=== PATIENT | female | born 1945 | race Caucasian/White ===

== ENCOUNTER 2021-02-28 09:24 | Observation (INO) ==
[2021-02-28] MEDS ORDERED: IOPAMIDOL 100 ML BOTTLE IV ONE (09:25)
[2021-02-28 09:42] LABS: POC Blood Urea Nitrogen 32 mg/dL (6-20); POC CO2 23 mmol/L (22-30); POC Calcium, Ionized 1.13 mmEq/L (1.16-1.32); POC Chloride 98 mEq/L (96-108); POC Glucose, Random 123 mg/dL (70-105); POC Hematocrit 28 % (36-48); POC Potassium 3.7 mEql/L (3.3-5.1); POC Sodium 134 mEq/L (133-145)
[2021-02-28 10:25] LABS: Basophils # (Auto) 0.04 K/mcL (0.00-0.20); Basophils % (Auto) 0.2 % (0.0-2.0); Eosinophils # (Auto) 0.08 K/mcL (0.00-0.70); Eosinophils % (Auto) 0.4 % (0.0-7.0); Hematocrit 27.1 % (36.0-48.0); Hemoglobin 9.3 g/dL (12.0-15.0); Lymphocytes # (Auto) 1.59 K/mcL (1.50-4.80); Lymphocytes % (Auto) 8.7 % (15.0-49.0); Mean Cell Volume 86.9 fL (80.0-100.0); Mean Corpuscular HGB Conc 34.3 g/dL (31.0-36.0); Mean Platelet Volume 11.5 fL (7.4-10.4); Monocytes # (Auto) 1.43 K/mcL (0.10-0.90); Monocytes % (Auto) 7.8 % (1.0-12.0); Neutrophils % (Auto) 82.9 % (38.0-78.0); Platelet Count 317 K/mcL (140-440); RBC 3.12 M/mcL (4.00-5.20); Red Cell Distribution Width 15.2 % (11.5-14.5); WBC 18.4 K/mcL (4.5-11.0)
[2021-02-28 11:10] LABS: ALT/SGPT 22 U/L (<40); AST/SGOT 36 U/L (<32); Albumin 3.6 gm/dL (3.2-5.2); Albumin/Globulin Ratio 1.4 (1.0-2.3); Alkaline Phosphatase 68 U/L (39-117); Bilirubin,Total 0.7 mg/dL (0.1-1.0); Blood Urea Nitrogen 34 mg/dL (8-23); Carbon Dioxide 23 mmol/L (22-30); Chloride 98 mmol/L (96-108); Globulin 2.5 gm/dL (2.2-3.7); Glomerular Filtration Rate 49; Glucose 115 mg/dL (70-105)
[2021-02-28 11:46] LABS: INR 1.2 (0.9-1.1); Prothrombin Time 15.3 sec (11.9-14.5)
--- NOTE | 2021-02-28 11:46 | Cat Scan Report ---
INDICATION: gi bleed COMPARISON: Previous CT scans dated 11/08/2017 and 04/11/2017 TECHNIQUE: Pre and postcontrast axial images were obtained through the abdomen and pelvis. Sagittally and coronally reformatted images. 80 mL contrast material injected intravenously. Oral contrast material was not administered FINDINGS: Lung bases:There is a focal soft tissue density at the inferior pulmonary ligament on the left. This is unchanged since 11/08/2017. Lung bases are otherwise negative. There is no pleural fluid. No pericardial fluid. There is a small hiatal hernia Liver:No focal intrahepatic lesion. Liver contour is smooth. No evidence for cirrhosis Gallbladder, bilary:Previous cholecystectomy. No dilated bile ducts Spleen:No splenomegaly. Normal enhancement of splenic and portal veins Pancreas:No pancreatic mass. No peripancreatic abnormality Adrenal glands:Bilateral adrenal enlargement consistent with adenomas. Findings are unchanged since 11/08/2017 Kidneys, ureters, bladder:No solid renal mass. No hydronephrosis. No obstructing or nonobstructing calculi. Benign left renal cyst is unchanged. Right intrarenal collecting system is slightly prominent. This appears stable. No hydroureter. No ureteral stone No bladder calculi. No detectable mass Gastrointestinal: Ascending colon and transverse colon are abnormal. There is loss of normal haustration. Appearance is consistent with colitis. The cecum is abnormal with marked wall thickening. No definite luminal narrowing. This may also be inflammatory and secondary to colitis. Cecal mass is not excluded. There is mild pericecal adenopathy. Follow-up CT scan or colonoscopy recommended. There is mural vascularity within the cecum. No definite contrast extravasation or pooling. Small bowel is negative. No mechanical small bowel obstruction. Stomach and duodenum are within normal limits Appendix: The appendix is negative Vascular:Severe calcified atherosclerotic plaque in the abdominal aorta. There is no abdominal aortic aneurysm. Celiac trunk and superior mesenteric artery are normal. There is stenosis at the origin of the right renal artery. Lymphatic:Negative. No retroperitoneal or mesenteric adenopathy Mesentery, peritoneum:No free intraperitoneal fluid. No intra-abdominal abscess. No pneumoperitoneum Reproductive:Uterus is present and slightly anteflexed. No adnexal mass Musculoskeletal:No lumbar compression fracture. Sacrum and pelvis are negative. There is very severe degenerative facet arthropathy at L5-S1 with grade 1 spondylolisthesis. Hips are negative. No inguinal or anterior abdominal wall hernia IMPRESSION: 1. Abnormal ascending colon and transverse colon consistent with colitis 2. Abnormal cecum with irregular mural thickening and mild pericolonic inflammatory change. There is surrounding adenopathy. Findings may be due to colitis but cecal neoplasm is not excluded. Follow-up CT scan or colonoscopy is recommended. 3. Small hiatal hernia 4. Bilateral adrenal adenomas are benign and stable 5. Severe facet arthropathy at L5-S1 The exam was performed using radiation dose optimization techniques including, but not limited to, automated exposure control, adjustment of the mA and/or kV according to patient size and use of iterative reconstruction technique. Interpreted and Authenticated by: Christofer Ravi 02/28/21
[2021-02-28] MEDS ORDERED: PEG 3350/NA SULF,BICARB,CL/KCL 4,000 ML ORAL.SOL PO ONE (12:21)
--- NOTE | 2021-02-28 12:30 | Emergency Department Note ---
GI Bleed HPI General Chief complaint: Rectal Bleed Stated complaint: blood in stool x 2 days Time Seen by Provider: 02/28/21 10:35 Source: patient Mode of arrival: ambulatory Limitations: no limitations History of Present Illness HPI Narrative: Narrative: Presents to room T5 for evaluation of rectal bleeding. The patient reports over the last 48 hours she has had several episodes of dark red blood mixed with stool. The patient reports her last colonoscopy was in 2015. She was attempting to prep for colonoscopy in August of last year however was unable to tolerate the prep. She has seen Dr. Vega in the past for this. The patient denies any lightheadedness or dizziness. No fevers or chills. No nausea or vomiting. No significant abdominal pain. No significant weight loss. She denies any additional associated factors. No exacerbating or alleviating factors. Related Data Home Medications Medication Instructions Recorded Confirmed aspirin 81 mg tablet,delayed 81 mg PO QDAY tab 07/22/15 02/28/21 release carvedilol 12.5 mg PO BID 02/28/21 02/28/21 Previous Rx's Medication Instructions Recorded pen needle, diabetic 32 gauge x #100 each 01/07/18/" blood sugar diagnostic #100 each 05/02/20 pen needle, diabetic 32 gauge x #100 each 05/02/2004/09" pantoprazole 20 mg tablet,delayed 20 mg PO BID 90 Days #180 tab 09/18/20 release atorvastatin 80 mg tablet 80 mg PO QDAY 90 Days #90 tab 10/24/20 clopidogrel 75 mg tablet 75 mg PO QDAY 90 Days #90 tab 10/24/20 fenofibrate 160 mg tablet 160 mg PO QDAY 90 Days #90 tab 10/24/20 fluoxetine 20 mg capsule 20 mg PO QDAY 90 Days #90 cap 10/24/20 furosemide 20 mg tablet 20 mg PO QAM 90 Days #90 tab 10/24/20 nifedipine 60 mg tablet,extended 60 mg PO BID 90 Days #180 tab 10/24/20 release Lantus Solostar U-100 Insulin 100 5 unit SUB-Q QPM #15 ml NS 12/20/20 unit/mL (3 mL) subcutaneous pen alprazolam 0.25 mg tablet 0.25 mg PO QHS PRN #30 tab 12/21/20 isosorbide mononitrate 30 mg 30 mg PO BID 90 Days #180 tab 03/01/21 tablet,extended release 24 hr losartan 50 mg tablet 25 mg PO BID 90 Days #90 tab 01/23/21 Allergies Allergy/AdvReac Type Severity Reaction Status Date / Time lisinopril AdvReac Intermediate Cough Verified 02/28/21 09:27 Review of Systems ROS ROS Narrative: Narrative: All systems ED: reviewed and negative except as stated. [facility] Narrative Patient History Narrative: Narrative: Medical/Surgical/Family History All Active Problems (Updated 02/28/21 @ 12:36 by Michael Reece MD) Acute GI bleeding (Acute) Irritable bowel syndrome with diarrhea (Chronic) Cystocele (Chronic) Biceps rupture, proximal (Chronic) Aortic stenosis (Chronic) S/P coronary artery stent placement (Chronic) Urinary tract infection (Acute) Gastroenteritis (Acute) Transient ischemic attack (TIA) (Chronic) S/P wrist surgery (Chronic) Fracture of wrist (Acute) Finger fracture, right (Acute) Gastrointestinal problem (Chronic) History of esophagogastroduodenoscopy (EGD) (Chronic 11/06/16) Diabetic peripheral neuropathy (Chronic) History of tonsillectomy (Chronic) History of colonoscopy (Chronic 11/06/16) History of cholecystectomy (Chronic) History of adenoidectomy (Chronic) Tricuspid valve disease (Chronic) Tobacco abuse (Chronic) Sciatica (Chronic) Restless legs (Chronic) Pseudophakia (Chronic) Postmenopausal status (age-related) (natural) (Chronic) Osteopenia (Chronic) Osteoarthrosis (Chronic) Lumbago (Chronic) care home current use of insulin (Chronic) Disorder of kidney and ureter (Chronic) Hyponatremia (Chronic) Hypertension, essential (Chronic) Hyperlipidemia (Chronic) Esophageal reflux (Chronic) Diverticulitis of colon (Chronic 11/14/12) Diabetes mellitus, type II (Chronic) Depression (Chronic) Colonic polyp (Chronic) CAD (coronary artery disease) (Chronic) Blepharitis (Chronic) Anxiety disorder (Chronic) Medical History (Updated 02/28/21 @ 12:36 by Michael Reece MD) Anxiety disorder Aortic stenosis Biceps rupture, proximal RIGHT Blepharitis (07/21/2014 Dr Chambers) CAD (coronary artery disease) Colonic polyp Cystocele Depression Diabetes mellitus, type II Disorder of kidney and ureter Diverticulitis of colon (11/14/12) Esophageal reflux Gastrointestinal problem chronic vomiting and diarrhea dating back to childhood Hyperlipidemia Hypertension, essential Hyponatremia Irritable bowel syndrome with diarrhea [employer] current use of insulin Lumbago Osteoarthrosis Osteopenia Postmenopausal status (age-related) (natural) Pseudophakia (07/21/2014 Dr Chambers) Restless legs Sciatica Sinusitis Tobacco abuse Transient ischemic attack (TIA) Tricuspid valve disease Murmur Surgical History History of adenoidectomy as a child History of cholecystectomy November 2002 Post operative pancreatitis History of colonoscopy (11/06/16) 11/14/13 Dr Saab History of esophagogastroduodenoscopy (EGD) (11/06/16) History of tonsillectomy as a child S/P coronary artery stent placement LAD May 2018 S/P wrist surgery 06/10/2017 RIGHT wrist ORIF, Dr. Pereira Family History Mother , (or cerebral aneurysm) Aortic aneurysm, Onset Age: 44 Bipolar affective disorder Migraine without aura Hypertension Rheumatic fever Secondary heart murmur Son Asthma Cardiac conduction disorder Family history of diabetes mellitus Hypertension Mitral valve stenosis Obesity Malignant Neoplasm of Thyroid Gland not specified, malignant Father Cardiac arrest, Onset Age: 51 Maternal Grandfather Nonruptured cerebral aneurysm, Onset Age: 37 ruptured, Paternal Grandfather , committed suicide Depression Sister Family history of diabetes mellitus Hypertension Obesity Sister with status post gastric bypass Sons Migraine Social History Smoking Status: Current some day smoker Alcohol Intake Frequency: does not drink Substance Use: does not use Exam Narrative Narrative: Narrative: General Limitations: no limitations General appearance: Present alert and in no apparent distress Head Head: Present atraumatic, normocephalic and normal inspection Eye Eye: Present normal appearance and EOMI; Absent conjunctival injection ENT ENT: Present normal exam and mucous membranes moist Neck Neck: Present normal inspection and trachea midline Respiratory Respiratory: Present normal lung sounds bilaterally; Absent respiratory distress Cardiovascular Cardiovascular: Present regular rate, normal rhythm and normal heart sounds Adbominal Abdominal: Present soft; Absent distention, tenderness, guarding and rebound Extremities Extremities: Present normal inspection; Absent tenderness Back Back: Present normal inspection; Absent tenderness Neurological Neurological: Present alert, oriented X3 and CN II-XII intact; Absent motor sensory deficit Psychiatric Psychiatric: Present normal affect and normal mood Skin Skin: Present warm (WNL) and dry; Absent rash Course Vital Signs Vital signs: Vital Signs Pulse Rate 88 02/28/21 09:24 Respiratory Rate 18 02/28/21 09:24 Blood Pressure 131/55 02/28/21 09:24 Pulse Oximetry (%) 97 02/28/21 09:24 Pulse Rate 73 02/28/21 12:01 Respiratory Rate 18 02/28/21 09:24 Blood Pressure 101/45 02/28/21 12:01 Pulse Oximetry (%) 94 02/28/21 12:01 [facility] MDM Narrative Medical decision making narrative: Narrative: Patient presents for evaluation of rectal bleeding. The patient's abdominal exam is otherwise benign. It is noted her hemoglobin is 9.3 which is diminished from previous values. Patient also have a leukocytosis of 18.4. Patient's BUN is elevated at 34 compared to baseline. The patient has gross blood when she passes her stool. CT scan does show thickened colon with irregularity and associated lymphadenopathy in the ascending colon and cecum. The patient and her prefer to stay at our facility. Dr. Gould is on-call and I discussed the case with him. He is requested a prep for colonoscopy. He is requested no antibiotics at this time. Have also discussed the case with the admitting hospitalist. Medical Records Medical records reviewed: Yes I reviewed the patient's medical records. Lab Data Lab results reviewed: Yes I reviewed the patient's lab results. Result diagrams: 02/28/21 09:31 02/28/21 09:31 Labs: Lab Results 02/28/21 02/28/21 02/28/21 Range/Units 09:31 09:31 09:31 WBC 18.4 H (4.5-11.0) K/mcL RBC 3.12 L (4.00-5.20) M/mcL Hgb 9.3 L (12.0-15.0) g/dL Hct 27.1 L (36.0-48.0) % POC Hct 28 L (36-48) % MCV 86.9 (80.0-100.0) fL MCH 29.8 (26.0-34.0) pg MCHC 34.3 (31.0-36.0) g/dL RDW 15.2 H (11.5-14.5) % Plt Count 317 (140-440) K/mcL MPV 11.5 H (7.4-10.4) fL Neut % (Auto) 82.9 H (38.0-78.0) % Lymph % (Auto) 8.7 L (15.0-49.0) % [place] % (Auto) 7.8 (1.0-12.0) % Eos % (Auto) 0.4 (0.0-7.0) % Baso % (Auto) 0.2 (0.0-2.0) % Lymph # (Auto) 1.59 (1.50-4.80) K/mcL [place] # (Auto) 1.43 H (0.10-0.90) K/mcL Eos # (Auto) 0.08 (0.00-0.70) K/mcL Baso # (Auto) 0.04 (0.00-0.20) K/mcL Absolute Neutrophils 15.23 H (1.80-8.00) K/mcL PT 15.3 H (11.9-14.5) sec INR 1.2 H (0.9-1.1) APTT 57.0 H (20.0-37.0) sec POC Sodium 134 (133-145) mEq/L Sodium 132 L (133-145) mmol/L POC Potassium 3.7 (3.3-5.1) mEql/L Potassium 3.7 (3.3-5.1) mmol/L POC Chloride 98 (96-108) mEq/L Chloride 98 (96-108) mmol/L Carbon Dioxide 23 (22-30) mmol/L POC Total CO2 23 (22-30) mmol/L Anion Gap 11.0 (8.0-16.0) POC BUN 32 H (6-20) mg/dL BUN 34 H (8-23) mg/dL Creatinine 1.1 (0.6-1.1) mg/dL POC Creatinine 1.0 (0.6-1.2) mg/dL GFR Calculation 49 Glucose 115 H (70-105) mg/dL POC Glucose 123 H (70-105) mg/dL Calcium 9.0 (8.6-10.4) mg/dL POC WB Ioniz Calcium 1.13 L (1.16-1.32) mmEq/L Total Bilirubin 0.7 (0.1-1.0) mg/dL AST 36 H (<32) U/L ALT 22 (<40) U/L Alkaline Phosphatase 68 (39-117) U/L Total Protein 6.1 (5.9-8.4) gm/dL Albumin 3.6 (3.2-5.2) gm/dL Globulin 2.5 (2.2-3.7) gm/dL Albumin/Globulin Ratio 1.4 (1.0-2.3) Radiology Data Radiology results reviewed: Yes I reviewed the patient's radiology results. Discharge Plan Patient/Caregiver Discharge Instructions Pt seen by HIGH SCHOOL GUIDANCE COUNSELOR/PA only: No Clinical Impression: Acute GI bleeding Patient Disposition: Xfer As Inpt ([facility]) Condition: Fair Follow up with: Obie Self PA-C [Primary Care Provider] - Prescriptions: No Action (DME) pen needle, diabetic [Comfort EZ Pen Secretary] 32 gauge x 1/4" needle See Dose Instructions .ROUTE .MEDSUPPLY Qty: 100 RF: 1 (DME) blood sugar diagnostic Strip See Dose Instructions .ROUTE .MEDSUPPLY Qty: 100 RF: 1 (DME) Comfort EZ Pen Secretary 32 gauge x 5/16" needle See Rx Instructions .ROUTE .MEDSUPPLY Qty: 100 RF: 0 pantoprazole 20 mg tablet,delayed release (DR/EC) 20 mg PO BID 90 Days Qty: 180 RF: 1 fenofibrate 160 mg tablet 160 mg tablet 160 mg PO QDAY 90 Days Qty: 90 RF: 1 fluoxetine 20 mg capsule 20 mg PO QDAY 90 Days Qty: 90 RF: 1 atorvastatin 80 mg tablet 80 mg PO QDAY 90 Days Qty: 90 RF: 1 nifedipine 60 mg tablet extended release 60 mg PO BID 90 Days Qty: 180 RF: 1 furosemide 20 mg tablet 20 mg PO QAM 90 Days Qty: 90 RF: 1 clopidogrel 75 mg tablet 75 mg PO QDAY 90 Days Qty: 90 RF: 1 alprazolam 0.25 mg tablet 0.25 mg PO QHS PRN (Reason: anxiety) Qty: 30 RF: 0 isosorbide mononitrate 30 mg tablet extended release 24 hr 30 mg PO BID 90 Days Qty: 180 RF: 1 losartan 50 mg tablet 25 mg PO BID 90 Days Qty: 90 RF: 1 Hold Instructions: due to hypotension aspirin 81 mg tablet,delayed release (/EC) 81 mg PO QDAY RF: 0 Lantus Solostar U-100 Insulin 100 unit/mL (3 mL) insulin pen 5 unit SUB-Q QPM Qty: 15 RF: 2 carvedilol 25 mg tablet 12.5 mg PO BID RF: 0
--- NOTE | 2021-02-28 12:51 | Internal Med History&Physical ---
HPI History of Present Illness Patient information: Note initiated : 02/28/21 at 12:42 pm Service Date, if different from initiated Date: [] Patient: Harika Palomino a 75 y/o F admitted on for blood in stool x 2 days. Chief Complaint: [] History of present illness: Ms. Palomino is a 75 year old F Presents the ED with bleeding per rectum. Patient states that she had Hemoccult positive stool testing the past and she will underwent a colonoscopy last fall but it made her really sick and has not done anything since then. Several days ago she started having bright red blood per rectum as well as some dark blood and then she has developed some clots today. She says she had about 10 episodes since evening of the fourth. Hemoglobin is 9.3. He also reports some abdominal cramping and achiness and was found have a leukocytosis of 18. CT imaging showed colitis of the ascending and transverse colon colon. Dr. Gould was contacted who will perform colonoscopy. Systolic blood pressure in the low 100s. She is on aspirin Plavix for history of CAD and stroke. She does have have chronic diarrhea. She had some nausea but no vomiting. Review of Systems: Pertinent positives as above plus headache.. Denies /fever/chills/vomiting/chest pain/cough/dyspnea. Remaining 10 point review of system reviewed negative PFSH PFSH All Active Problems (Updated 02/28/21 @ 12:36 by Michael Reece MD) Acute GI bleeding (Acute) Irritable bowel syndrome with diarrhea (Chronic) Cystocele (Chronic) Biceps rupture, proximal (Chronic) Aortic stenosis (Chronic) S/P coronary artery stent placement (Chronic) Urinary tract infection (Acute) Gastroenteritis (Acute) Transient ischemic attack (TIA) (Chronic) S/P wrist surgery (Chronic) Fracture of wrist (Acute) Finger fracture, right (Acute) Gastrointestinal problem (Chronic) History of esophagogastroduodenoscopy (EGD) (Chronic 11/06/16) Diabetic peripheral neuropathy (Chronic) History of tonsillectomy (Chronic) History of colonoscopy (Chronic 11/06/16) History of cholecystectomy (Chronic) History of adenoidectomy (Chronic) Tricuspid valve disease (Chronic) Tobacco abuse (Chronic) Sciatica (Chronic) Restless legs (Chronic) Pseudophakia (Chronic) Postmenopausal status (age-related) (natural) (Chronic) Osteopenia (Chronic) Osteoarthrosis (Chronic) Lumbago (Chronic) 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 current use of insulin (Chronic) Disorder of kidney and ureter (Chronic) Hyponatremia (Chronic) Hypertension, essential (Chronic) Hyperlipidemia (Chronic) Esophageal reflux (Chronic) Diverticulitis of colon (Chronic 11/14/12) Diabetes mellitus, type II (Chronic) Depression (Chronic) Colonic polyp (Chronic) CAD (coronary artery disease) (Chronic) Blepharitis (Chronic) Anxiety disorder (Chronic) Medical History (Updated 02/28/21 @ 12:36 by Michael Reece MD) Anxiety disorder Aortic stenosis Biceps rupture, proximal RIGHT Blepharitis (07/21/2014 Dr Chambers) CAD (coronary artery disease) Colonic polyp Cystocele Depression Diabetes mellitus, type II Disorder of kidney and ureter Diverticulitis of colon (11/14/12) Esophageal reflux Gastrointestinal problem chronic vomiting and diarrhea dating back to childhood Hyperlipidemia Hypertension, essential Hyponatremia Irritable bowel syndrome with diarrhea 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 Pereira Family History Mother , (or cerebral aneurysm) Aortic aneurysm, Onset Age: 44 Bipolar affective disorder Migraine without aura Hypertension Rheumatic fever Secondary heart murmur Son Asthma Cardiac conduction disorder Family history of diabetes mellitus Hypertension Mitral valve stenosis Obesity Malignant Neoplasm of Thyroid Gland not specified, malignant Father Cardiac arrest, Onset Age: 51 Maternal Grandfather Nonruptured cerebral aneurysm, Onset Age: 37 ruptured, Paternal Grandfather , committed suicide Depression Sister Family history of diabetes mellitus Hypertension Obesity Sister with status post gastric bypass Sons Migraine Social History household members: spouse housing: house lives independently: Yes marital status: alcohol intake frequency: does not drink substance use type: does not use MEDS/ALLERGIES Home Medications and Allergies Home Medications Medication Instructions Recorded Confirmed Type aspirin 81 mg tablet,delayed 81 mg PO QDAY tab 07/22/15 02/28/21 History release pen needle, diabetic 32 gauge x #100 each 01/07/18 02/28/21 Rx 1/4" blood sugar diagnostic #100 each 05/02/20 02/28/21 Rx pen needle, diabetic 32 gauge x #100 each 05/02/20 02/28/21 Rx 5/16" pantoprazole 20 mg tablet,delayed 20 mg PO BID 90 Days #180 tab 09/18/20 02/28/21 Rx release atorvastatin 80 mg tablet 80 mg PO QDAY 90 Days #90 tab 10/24/20 02/28/21 Rx clopidogrel 75 mg tablet 75 mg PO QDAY 90 Days #90 tab 10/24/20 02/28/21 Rx fenofibrate 160 mg tablet 160 mg PO QDAY 90 Days #90 tab 10/24/20 02/28/21 Rx fluoxetine 20 mg capsule 20 mg PO QDAY 90 Days #90 cap 10/24/20 02/28/21 Rx furosemide 20 mg tablet 20 mg PO QAM 90 Days #90 tab 10/24/20 02/28/21 Rx nifedipine 60 mg tablet,extended 60 mg PO BID 90 Days #180 tab 10/24/20 02/28/21 Rx release Lantus Solostar U-100 Insulin 100 5 unit SUB-Q QPM #15 ml NS 12/20/20 02/28/21 Rx unit/mL (3 mL) subcutaneous pen alprazolam 0.25 mg tablet 0.25 mg PO QHS PRN #30 tab 12/21/20 02/28/21 Rx isosorbide mononitrate 30 mg 30 mg PO BID 90 Days #180 tab 01/23/21 02/28/21 Rx tablet,extended release 24 hr losartan 50 mg tablet 25 mg PO BID 90 Days #90 tab 01/23/21 02/28/21 Rx carvedilol 12.5 mg PO BID 02/28/21 02/28/21 History Allergies Allergy/AdvReac Type Severity Reaction Status Date / Time lisinopril AdvReac Intermediate Cough Verified 02/28/21 09:27 EXAM Constitutional Vitals: Pulse Resp BP Pulse Ox 77 18 109/46 93 02/28/21 12:31 02/28/21 09:24 02/28/21 12:31 02/28/21 12:31 Exam: General: Alert, Awake, No acute Distress Eyes/N/T: EOMI, PERRL, Head/Neck: neck supple, normocephalic atraumatic CV: RRR, 3/6 SM, normal s1/s2 Pulm: Clear b/l, no wheezing/rhonchi/rales Abd: soft, mild TTP generalized, +BS x4 Ext: no clubbing/cyanosis, 1-2+ b/l LE edema Neuro: Alert, no focal deficits, moves all extremities, CN 2-12 grossly intact, symmetrical strength b/l upper/lower, sensations intact b/l upper/lower Skin: warm/dry DATA Data Completed and Pending Labs: Labs from last 24 hours 02/28/21 02/28/21 02/28/21 09:31 09:31 09:31 WBC 18.4 H RBC 3.12 L Hgb 9.3 L Hct 27.1 L POC Hct 28 L MCV 86.9 MCH 29.8 MCHC 34.3 RDW 15.2 H Plt Count 317 MPV 11.5 H Neut % (Auto) 82.9 H Lymph % (Auto) 8.7 L [place] % (Auto) 7.8 Eos % (Auto) 0.4 Baso % (Auto) 0.2 Lymph # (Auto) 1.59 [place] # (Auto) 1.43 H Eos # (Auto) 0.08 Baso # (Auto) 0.04 Absolute Neutrophils 15.23 H PT 15.3 H INR 1.2 H APTT 57.0 H POC Sodium 134 Sodium 132 L POC Potassium 3.7 Potassium 3.7 POC Chloride 98 Chloride 98 Carbon Dioxide 23 POC Total CO2 23 Anion Gap 11.0 POC BUN 32 H BUN 34 H Creatinine 1.1 POC Creatinine 1.0 GFR Calculation 49 Glucose 115 H POC Glucose 123 H Calcium 9.0 POC WB Ioniz Calcium 1.13 L Total Bilirubin 0.7 AST 36 H ALT 22 Alkaline Phosphatase 68 Total Protein 6.1 Albumin 3.6 Globulin 2.5 Albumin/Globulin Ratio 1.4 A/P Narrative A/P Narrative: A: *Colitis: *GIB, appears lower: *Acute blood loss anemia, on chronic: *DM: *CAD w/stent: *h/o CVA: on asa/plavix *peripheral edema: on lasix *HTN: *Depression/anxiety: *GERD: *Tobacco abuse: * P: -Cipro/Flagyl, Stool studies -Dr. Gould for endoscopy and further Missael -monitor H&H -Hold aspirin/Plavix until eval by GI -cont statin -cont BB, hold CCB/ACEI for low-normal BP -compression stockings - -basal and SSI -Smoking cessation counseling -ppx: SCD/home ppi DNR Time Spent With Patient Time: Total time spent is greater than 50% in coordination of care (as documented) at patient's floor/unit and/or counseling patient:
[2021-02-28] MEDS ORDERED: 0.9 % SODIUM CHLORIDE 1,000 ML IV SCH (13:57)
[2021-02-28] MEDS ORDERED: SENNOSIDES 1 TABLET PO PRN (13:57)
[2021-02-28] MEDS ORDERED: ONDANSETRON 4 MG/2 ML VIAL IV PRN (13:57)
[2021-02-28] MEDS ORDERED: POTASSIUM CHLORIDE 20 MEQ TABLET PO PRN ×2 (13:57)
[2021-02-28] MEDS ORDERED: ALPRAZolam 0.25 MG TABLET PO PRN (13:57)
[2021-02-28] MEDS ORDERED: DEXTROSE 50% 50 ML VIAL IV PRN (13:57)
[2021-02-28] MEDS ORDERED: MAGNESIUM SULFATE 2 GM/50 ML BAG IV PRN (13:57)
[2021-02-28] MEDS ORDERED: POTASSIUM CHLORIDE 40 MEQ in DEXTROSE 5% IN WATER 500 ML IV PRN (13:57)
[2021-02-28] MEDS ORDERED: ACETAMINOPHEN 325 MG TABLET PO PRN (13:57)
[2021-02-28] MEDS ORDERED: IPRATROPIUM/ALBUTEROL 3 ML AMPUL.NEB NEB PRN (13:57)
[2021-02-28] MEDS ORDERED: DEXTROSE 31 GM ORAL.SUSP PO PRN (13:57)
[2021-02-28] MEDS ORDERED: KETAMINE 50 MG/ML ML IV PRN (14:29)
[2021-02-28] MEDS ORDERED: PROPOFOL 200 MG/20 ML VIAL IV SCH (14:30)
[2021-02-28] MEDS ORDERED: MIDAZOLAM 2 MG/2 ML VIAL IV SCH (14:30)
[2021-02-28] MEDS: CIPROFLOXACIN 400 MG/200 ML BAG IV SCH ×2 (14:34→17:43)
[2021-02-28] MEDS: metroNIDAZOLE 500 MG/100 ML BAG IV SCH ×2 (14:34→22:07)
[2021-02-28] MEDS: 0.9 % SODIUM CHLORIDE 10 ML SYRINGE IV SCH ×2 (14:36→22:07)
[2021-02-28] MEDS ORDERED: PROPOFOL 200 MG/20 ML VIAL IV ONE (16:46)
[2021-02-28] MEDS ORDERED: MIDAZOLAM 2 MG/2 ML VIAL ONE (16:46)
[2021-02-28] MEDS: INSULIN LISPRO 1 UNIT/0.01 ML UNIT SQ SCH ×2 (17:45→21:59)
--- NOTE | 2021-02-28 19:17 | Discharge Summary ---
Discharge Provider Provider Patient information: Note initiated : 02/28/21 at 7:15 pm Service Date, if different from initiated Date: [] Patient: Harika Palomino 75 y/o F admitted on 02/28/21 for blood in stool x 2 days/GI Bleed. Chief Complaint: [] Date of admission: 02/28/21 13:45 Primary care physician: Obie Self PA-C Consults: 02/28/21 Consult to Physician [CONS] Stat Comment: Consulting Provider: Garett Gonzalez Reason For Exam: Physician to Consult 02/28/21 13:57 Consult to Physician [CONS] Routine Comment: Consulting Provider: Rell Ordonez Reason For Exam: Physician to Consult Discharge Meds Discharge Medications Home Medications aspirin 81 mg tablet,delayed release 81 mg PO HS tab 07/22/15 [History Confirmed 02/28/21 Last Taken 02/26/21 21:00] pen needle, diabetic 32 gauge x 1/4" #100 each 01/07/18 [Rx Confirmed 02/28/21 Last Taken Unknown] blood sugar diagnostic #100 each 05/02/20 [Rx Confirmed 02/28/21 Last Taken Unknown] pen needle, diabetic 32 gauge x 5/16" #100 each 05/02/20 [Rx Confirmed 02/28/21 Last Taken Unknown] pantoprazole 20 mg tablet,delayed release 20 mg PO BID 90 Days #180 tab 09/18/20 [Rx Confirmed 02/28/21 Last Taken 02/28/21 08:00] clopidogrel 75 mg tablet 75 mg PO QDAY 90 Days #90 tab 10/24/20 [Rx Confirmed 02/28/21 Last Taken 02/27/21 08:00] furosemide 20 mg tablet 20 mg PO QAM 90 Days #90 tab 10/24/20 [Rx Confirmed 02/28/21 Last Taken 02/28/21 08:00] nifedipine 60 mg tablet,extended release 60 mg PO BID 90 Days #180 tab 10/24/20 [Rx Confirmed 02/28/21 Last Taken 02/28/21 08:00] Lantus Solostar U-100 Insulin 100 unit/mL (3 mL) subcutaneous pen 5 unit SUB-Q QPM #15 ml NS 12/20/20 [Rx Confirmed 02/28/21 Last Taken 02/27/21 21:00] alprazolam 0.25 mg tablet 0.25 mg PO QHS PRN #30 tab 12/21/20 [Rx Confirmed 02/28/21 Last Taken 02/26/21 21:00] isosorbide mononitrate 30 mg tablet,extended release 24 hr 30 mg PO BID 90 Days #180 tab 01/23/21 [Rx Confirmed 02/28/21 Last Taken 02/28/21 08:00] losartan 50 mg tablet 25 mg PO BID 90 Days #90 tab 01/23/21 [Rx Confirmed Last Taken 02/23/21 21:00] atorvastatin 80 mg PO HS 02/28/21 [History Confirmed 02/28/21 Last Taken 02/27/21 21:00] carvedilol 12.5 mg PO BID 02/28/21 [History Confirmed 02/28/21 Last Taken 05/15 08:00] cholecalciferol (vitamin D3) [Vitamin D3] 10 mcg PO QDAY 02/28/21 [History Confirmed 02/28/21 Last Taken 02/28/21 08:00] fenofibrate 160 mg PO HS 02/28/21 [History Confirmed 02/28/21 Last Taken 02/27/21 21:00] fluoxetine 20 mg PO HS 02/28/21 [History Confirmed 02/28/21 Last Taken 02/27/21 21:00] loperamide 2 mg PO PRN PRN 02/28/21 [History Confirmed 02/28/21 Last Taken Unknown] multivitamin 1 tab PO QAM 02/28/21 [History Confirmed 02/28/21 Last Taken 02/28/21 08:00] naproxen sodium [Aleve] 440 mg PO Q12H PRN 02/28/21 [History Confirmed 02/28/21 Last Taken Unknown] COURSE Hospital Course Hospital course: History of present illness: Ms. Palomino is a 75 year old F Presents the ED with bleeding per rectum. Patient states that she had Hemoccult positive stool testing the past and she will underwent a colonoscopy last fall but it made her really sick and has not done anything since then. Several days ago she started having bright red blood per rectum as well as some dark blood and then she has developed some clots today. She says she had about 10 episodes since evening of the fourth. Hemoglobin is 9.3. He also reports some abdominal cramping and achiness and was found have a leukocytosis of 18. CT imaging showed colitis of the ascending and transverse colon colon. Dr. Gould was contacted who will perform colonoscopy. Systolic blood pressure in the low 100s. She is on aspirin Plavix for history of CAD and stroke. She does have have chronic diarrhea. She had some nausea but no vomiting. *colonoscopy did not reveal any colitis, just diverticulosis as likely the source of bleeding. 03/01 A: *Colitis: *GIB, appears lower: *Acute blood loss anemia, on chronic: *DM: *CAD w/stent: *h/o CVA: on asa/plavix *peripheral edema: on lasix *HTN: *Depression/anxiety: *GERD: *Tobacco abuse: Discharge diagnosis: Lower GI bleed acute blood loss anemia Secondary discharge diagnosis: Diabetes CAD stroke history peripheral edema hypertension depression anxiety GERD tobacco abuse Time spent discussing smoking cessation with patient: more than 10 minutes Time Spent with Patient Time attestation: Total time spent providing and/or coordinating discharge services: EXAM Constitutional Vitals: Temp Pulse Resp BP Pulse Ox 97.9 F 76 20 139/48 93 02/28/21 16:33 02/28/21 17:48 02/28/21 17:32 02/28/21 17:48 02/28/21 17:48 Discharge Data Data Completed and Pending Labs on day of discharge: Labs from last 24 hours 02/28/21 02/28/21 02/28/21 09:31 09:31 09:31 WBC 18.4 H RBC 3.12 L Hgb 9.3 L Hct 27.1 L POC Hct 28 L MCV 86.9 MCH 29.8 MCHC 34.3 RDW 15.2 H Plt Count 317 MPV 11.5 H Neut % (Auto) 82.9 H Lymph % (Auto) 8.7 L [place] % (Auto) 7.8 Eos % (Auto) 0.4 Baso % (Auto) 0.2 Lymph # (Auto) 1.59 [place] # (Auto) 1.43 H Eos # (Auto) 0.08 Baso # (Auto) 0.04 Absolute Neutrophils 15.23 H PT 15.3 H INR 1.2 H APTT 57.0 H POC Sodium 134 Sodium 132 L POC Potassium 3.7 Potassium 3.7 POC Chloride 98 Chloride 98 Carbon Dioxide 23 POC Total CO2 23 Anion Gap 11.0 POC BUN 32 H BUN 34 H Creatinine 1.1 POC Creatinine 1.0 GFR Calculation 49 Glucose 115 H POC Glucose 123 H Calcium 9.0 POC WB Ioniz Calcium 1.13 L Total Bilirubin 0.7 AST 36 H ALT 22 Alkaline Phosphatase 68 Total Protein 6.1 Albumin 3.6 Globulin 2.5 Albumin/Globulin Ratio 1.4 Discharge Plan Patient/Caregiver Discharge Instructions Activity: increase activity as tolerated Diet: Consistent Carbohydrate Prescriptions: Continued (DME) pen needle, diabetic [Comfort EZ Pen [place]] 32 gauge x 1/4" needle See Dose Instructions .ROUTE .MEDSUPPLY Qty: 100 RF: 1 (DME) blood sugar diagnostic Strip See Dose Instructions .ROUTE .MEDSUPPLY Qty: 100 RF: 1 (DME) Comfort EZ Pen [place] 32 gauge x 5/16" needle See Rx Instructions .ROUTE .MEDSUPPLY Qty: 100 RF: 0 pantoprazole 20 mg tablet,delayed release (DR/EC) 20 mg PO BID 90 Days Qty: 180 RF: 1 nifedipine 60 mg tablet extended release 60 mg PO BID 90 Days Qty: 180 RF: 1 furosemide 20 mg tablet 20 mg PO QAM 90 Days Qty: 90 RF: 1 clopidogrel 75 mg tablet 75 mg PO QDAY 90 Days Qty: 90 RF: 1 alprazolam 0.25 mg tablet 0.25 mg PO QHS PRN (Reason: anxiety) Qty: 30 RF: 0 isosorbide mononitrate 30 mg tablet extended release 24 hr 30 mg PO BID 90 Days Qty: 180 RF: 1 losartan 50 mg tablet 25 mg PO BID 90 Days Qty: 90 RF: 1 Hold Instructions: due to hypotension aspirin 81 mg tablet,delayed release (DR/EC) 81 mg PO HS RF: 0 Lantus Solostar U-100 Insulin 100 unit/mL (3 mL) insulin pen 5 unit SUB-Q QPM Qty: 15 RF: 2 carvedilol 25 mg tablet 12.5 mg PO BID RF: 0 atorvastatin 80 mg tablet 80 mg PO HS RF: 0 fenofibrate 160 mg Tablet 160 mg PO HS RF: 0 fluoxetine 20 mg Tablet 20 mg PO HS RF: 0 multivitamin Tablet 1 tab PO QAM RF: 0 cholecalciferol (vitamin D3) [Vitamin D3] 10 mcg (400 unit) Tablet 10 mcg PO QDAY RF: 0 loperamide 2 mg Tablet 2 mg PO PRN PRN (Reason: Diarrhea) RF: 0 naproxen sodium [Aleve] 220 mg Tablet 440 mg PO Q12H PRN (Reason: Pain) RF: 0 Follow Up Plan Follow up with: Obie Self PA-C [Primary Care Provider] - Patient Disposition: Home, Self-Care Prognosis: Fair
[2021-02-28 20:17] LABS: Hematocrit 23.2 % (36.0-48.0); Hemoglobin 7.8 g/dL (12.0-15.0)
[2021-02-28] MEDS ORDERED: ATORVASTATIN 40 MG TABLET PO SCH (21:00)
[2021-02-28] MEDS: ATORVASTATIN 40 MG TABLET PO SCH ×2 (21:00→21:51)
[2021-02-28] MEDS: NIFEdipine 30 MG TAB.XL.24H PO SCH (21:51)
[2021-02-28] MEDS: ISOSORBIDE MONONITRATE 30 MG TAB.XL.24H PO SCH (21:52)
[2021-02-28] MEDS: FLUoxetine HCL 20 MG CAPSULE PO SCH (21:52)
[2021-02-28] MEDS: CARVEDILOL 12.5 MG TABLET PO SCH (21:53)
[2021-02-28] MEDS: LOSARTAN 50 MG TABLET PO SCH (21:53)
[2021-02-28] MEDS: PANTOPRAZOLE 40 MG TABLET PO SCH (21:53)
[2021-02-28] MEDS: INSULIN GLARGINE, HUMAN 1 UNIT/0.01 ML SQ SCH (22:00)
[2021-02-28] MEDS: 0.9 % SODIUM CHLORIDE 250 ML IV SCH ×2 (22:01→22:34)
[2021-03-01] MEDS: CIPROFLOXACIN 400 MG/200 ML BAG IV SCH ×3 (01:35→21:53)
[2021-03-01] MEDS: metroNIDAZOLE 500 MG/100 ML BAG IV SCH ×3 (06:01→21:54)
[2021-03-01] MEDS: 0.9 % SODIUM CHLORIDE 10 ML SYRINGE IV SCH ×3 (06:09→21:55)
[2021-03-01 06:38] LABS: Basophils # (Auto) 0.02 K/mcL (0.00-0.20); Basophils % (Auto) 0.2 % (0.0-2.0); Eosinophils # (Auto) 0.02 K/mcL (0.00-0.70); Eosinophils % (Auto) 0.2 % (0.0-7.0); Hematocrit 26.5 % (36.0-48.0); Hemoglobin 9.1 g/dL (12.0-15.0); Lymphocytes # (Auto) 1.22 K/mcL (1.50-4.80); Lymphocytes % (Auto) 12.2 % (15.0-49.0); Mean Cell Volume 86.6 fL (80.0-100.0); Mean Corpuscular HGB Conc 34.3 g/dL (31.0-36.0); Mean Platelet Volume 11.6 fL (7.4-10.4); Monocytes # (Auto) 0.74 K/mcL (0.10-0.90); Monocytes % (Auto) 7.4 % (1.0-12.0); Platelet Count 204 K/mcL (140-440); RBC 3.06 M/mcL (4.00-5.20); Red Cell Distribution Width 15.1 % (11.5-14.5)
[2021-03-01] MEDS: PANTOPRAZOLE 40 MG TABLET PO SCH ×2 (07:23→16:53)
[2021-03-01] MEDS: CARVEDILOL 12.5 MG TABLET PO SCH ×2 (07:23→16:53)
[2021-03-01] MEDS: INSULIN LISPRO 1 UNIT/0.01 ML UNIT SQ SCH ×4 (07:23→21:45)
--- NOTE | 2021-03-01 08:00 | Internal Med Progress Note ---
SUBJECTIVE Subjective Patient information: Note initiated : 03/01/21 at 7:56 am Service Date, if different from initiated Date: [] Patient: Harika Palomino a 75 y/o F admitted on 02/28/21 for blood in stool x 2 days/GI Bleed. Chief Complaint: [] Interval history: History of present illness: Ms. Palomino is a 75 year old F Presents the ED with bleeding per rectum. Patient states that she had Hemoccult positive stool testing the past and she will underwent a colonoscopy last fall but it made her really sick and has not done anything since then. Several days ago she started having bright red blood per rectum as well as some dark blood and then she has developed some clots today. She says she had about 10 episodes since evening of the fourth. Hemoglobin is 9.3. He also reports some abdominal cramping and achiness and was found have a leukocytosis of 18. CT imaging showed colitis of the ascending and transverse colon colon. Dr. Gould was contacted who will perform colonoscopy. Systolic blood pressure in the low 100s. She is on aspirin Plavix for history of CAD and stroke. She does have have chronic diarrhea. She had some nausea but no vomiting. *colonoscopy did not reveal any colitis, just diverticulosis as likely the source of bleeding. 03/01 Patient doing well. Responded to blood transfusion well. Colonoscopy with diverticulosis is the source of bleeding. Patient had a little bit of dark stool but no red blood. Review of Systems: denies headache/fever/chills//vomiting/chest or abdominal pain/cough/dyspnea/diarrhea. Otherwise see above. Constitutional Vitals: Vital Signs Temp Pulse Resp BP Pulse Ox 98.8 F 85 14 133/61 93 03/01/21 03:45 03/01/21 03:45 03/01/21 03:45 03/01/21 03:45 03/01/21 03:45 Period Temp Pulse Resp BP Sys/Jean-Baptiste Pulse Ox Last 24 Hr 97.5 F-98.8 F 72-91 14-22 86-144/40-99 90-100 Intake and Output 02/28/21 03/01/21 03/01/21 21:59 05:59 13:59 Intake Total 556 1443 100 Output Total 850 Balance -294 1443 100 Weight 51.256 kg Intake & Output: Intake & Output 02/28/21 03/01/21 03/01/21 21:59 05:59 13:59 Intake Total 556 1443 100 Output Total 850 Balance -294 1443 100 Weight 51.256 kg Intake: IV 556 337 100 Sodium Chloride 0.9% 1,000 ml @ 256 75 mls/hr IV .[id number] [facility], [facility]1983 Rx#: [id number] Sodium Chloride 0.9% 250 ml @ 37 20 mls/hr IV .[id number] [facility], [facility] Rx#: [id number] Oral 440 Blood Product 333 Packed Cells 333 Output: Urine/Stool Mix 350 Stool 500 Other: Stool Size Large Stool Color Brown Stool Consistency Liquid Loose Watery Loose # Bowel Movements 1 # of times incontinent of 1 Bowels Exam: General: Alert, Awake, No acute Distress Eyes/N/T: EOMI, Head/Neck: neck supple, CV: RRR, 3/6 SM, Pulm: Clear b/l, no wheezing/rhonchi/rales Abd: soft, +BS x4 Ext: no clubbing/cyanosis, 1-2+ b/l LE edema Neuro: Alert, no focal deficits, moves all extremities, Skin: warm/dry OBJ DATA Labs CBC & Chem 7: 03/01/21 05:33 03/01/21 05:33 Labs: Abnormal Lab Results 03/01/21 02/28/21 02/28/21 05:33 19:16 09:31 WBC RBC 3.06 L Hgb 9.1 L 7.8 L Hct 26.5 L 23.2 L POC Hct RDW 15.1 H MPV 11.6 H Neut % (Auto) 80.0 H Lymph % (Auto) 12.2 L Lymph # (Auto) 1.22 L [place] # (Auto) Absolute Neutrophils PT 15.3 H INR 1.2 H APTT 57.0 H Sodium POC BUN BUN Glucose POC Glucose POC WB Ioniz Calcium AST 02/28/21 02/28/21 09:31 09:31 WBC 18.4 H RBC 3.12 L Hgb 9.3 L Hct 27.1 L POC Hct 28 L RDW 15.2 H MPV 11.5 H Neut % (Auto) 82.9 H Lymph % (Auto) 8.7 L Lymph # (Auto) [place] # (Auto) 1.43 H Absolute Neutrophils 15.23 H PT INR APTT Sodium 132 L POC BUN 32 H BUN 34 H Glucose 115 H POC Glucose 123 H POC WB Ioniz Calcium 1.13 L AST 36 H Meds: Medications Acetaminophen (Acetaminophen 325 Mg Tablet) 650 mg PO Q6HP PRN PRN Reason: PAIN/FEVER > 101 Albuterol/Ipratropium (Ipratropium/Albuterol 3 Ml Ampul.Neb) 3 ml NEB Q4HP PRN PRN Reason: Shortness Of Breath Alprazolam (Alprazolam 0.25 Mg Tablet) 0.25 mg PO QHS PRN PRN Reason: anxiety Atorvastatin Calcium (Atorvastatin 40 Mg Tablet) 80 mg PO [facility] Last Admin: 02/28/21 21:00 Dose: Not Given Documented by: Carvedilol (Carvedilol 12.5 Mg Tablet) [facility] Admin: 03/01/21 07:23 Dose: 12.5 mg Documented by: Dextrose (Dextrose 50% 50 Ml Vial) 0 ml IV UD PRN PRN Reason: Hypoglycemia Diagnostic Test (Pha) (Accu-Chek 1 Each Strip) 1 each FS ACHS [facility] Last Admin: 03/01/21 07:23 Dose: 1 each Documented by: Fluoxetine HCl (Fluoxetine Hcl 20 Mg Capsule) 20 mg PO [facility] Last Admin: 02/28/21 21:52 Dose: 20 mg Documented by: Glucose (Dextrose 31 Gm Oral.Susp) 15 gm PO PRN PRN PRN Reason: Hypoglycemia Potassium Chloride 40 meq/ (Dextrose) 520 mls @ 130 mls/hr IV UD PRN PRN Reason: Potassium < 3 Magnesium Sulfate (Magnesium Sulfate) 2 gm in 50 mls @ 50 mls/hr IV UD PRN PRN Reason: Magnesium </= 1.6 Ciprofloxacin (Cipro) 400 mg in 200 mls @ 200 mls/hr IV Q12H [facility]; Protocol Last Infusion: 03/01/21 03:15 Dose: Infused Documented by: Metronidazole (Flagyl) 500 mg in 100 mls @ 100 mls/hr IV Q8H [facility]; Protocol Last Infusion: 03/01/21 07:01 Dose: Infused Documented by: Sodium Chloride (Sodium Chloride 0.9%) 250 mls @ 20 mls/hr IV .[id number] [facility] Stop: 03/01/21 08:59 Last Infusion: 03/01/21 00:25 Dose: Infused Documented by: Insulin Glargine (Insulin Glargine, Human 1 Unit/0.01 Ml) 5 unit SQ HS [facility] Last Admin: 02/28/21 22:00 Dose: Not Given Documented by: Insulin Human Lispro (Insulin Lispro 1 Unit/0.01 Ml Unit) 0 unit SQ [facility], [facility]; Protocol Last Admin: 03/01/21 07:23 Dose: Not Given Documented by: Isosorbide Mononitrate (Isosorbide Mononitrate 30 Mg Tab.Xl.24h) 30 mg PO BID [facility] Last Admin: 02/28/21 21:52 Dose: 30 mg Documented by: Losartan Potassium (Losartan 50 Mg Tablet) 25 mg PO BID [facility] Last Admin: 02/28/21 21:53 Dose: 25 mg Documented by: Nifedipine (Nifedipine 30 Mg Tab.Xl.24h) 60 mg PO BID [facility] Last Admin: 02/28/21 21:51 Dose: 60 mg Documented by: Ondansetron HCl (Ondansetron 4 Mg/2 Ml Vial) 4 mg IV Q4HP PRN PRN Reason: Nausea And Vomiting Last Admin: 02/28/21 22:05 Dose: 4 mg Documented by: Pantoprazole Sodium (Pantoprazole 40 Mg Tablet) 40 mg PO BIDAC [facility] Last Admin: 03/01/21 07:23 Dose: 40 mg Documented by: Potassium Chloride (Potassium Chloride 20 Meq Tablet) 40 meq PO UD PRN PRN Reason: Potssium is 3-3.5 Potassium Chloride (Potassium Chloride 20 Meq Tablet) 40 meq PO UD PRN PRN Reason: Potassium < 3 Senna (Sennosides 1 Tablet) 2 tab PO DAILYP PRN PRN Reason: Constipation Sodium Chloride (0.9 % Sodium Chloride 10 Ml Syringe) 10 ml IV Q8 [facility] Last Admin: 03/01/21 06:09 Dose: 10 ml Documented by: A/P Narrative A/P Narrative: A: *GIB, lower: 2/2 diverticulosis per colonoscopy -no evidence of colitis found on colonoscopy *Acute blood loss anemia, on chronic: -1prbc (02/28), responded well *DM: *CAD w/stent: *h/o CVA: on asa/plavix *peripheral edema: on lasix *HTN: *Depression/anxiety: *GERD: *Tobacco abuse: * P: -Dr. Gould following -monitor H&H -Held aspirin/Plavix initially, restart staggered tomorrow -cont statin -cont BB, hold CCB/ACEI for low-normal BP -compression stockings -basal and SSI -Smoking cessation counseling -ppx: SCD/home ppi DNR Time Spent With Patient Time: Total time spent is greater than 50% in coordination of care (as documented) at patient's floor/unit and/or counseling patient:
[2021-03-01 08:14] LABS: ALT/SGPT 19 U/L (<40); AST/SGOT 41 U/L (<32); Albumin 3.1 gm/dL (3.2-5.2); Albumin/Globulin Ratio 1.3 (1.0-2.3); Alkaline Phosphatase 56 U/L (39-117); Bilirubin,Direct 0.3 mg/dL (<0.3); Bilirubin,Total 0.6 mg/dL (0.1-1.0); Blood Urea Nitrogen 20 mg/dL (8-23); Calcium 8.1 mg/dL (8.6-10.4); Carbon Dioxide 28 mmol/L (22-30); Chloride 98 mmol/L (96-108); Globulin 2.3 gm/dL (2.2-3.7); Glomerular Filtration Rate 49; Glucose 80 mg/dL (70-105); Lactate Dehydrogenase 151 U/L (135-225); Phosphorous 3.2 mg/dL (2.5-4.5); Triglycerides 111 mg/dL (<150); Uric Acid 5.9 mg/dL (2.5-8.0)
[2021-03-01] MEDS ORDERED: MAGNESIUM SULFATE 8.12 MEQ/2 ML VIAL IV ONE (08:44)
[2021-03-01] MEDS ORDERED: FLUoxetine HCL 20 MG CAPSULE PO SCH (09:00)
[2021-03-01] MEDS ORDERED: MAGNESIUM SULFATE 8.12 MEQ in DEXTROSE 5% IN WATER 50 ML IV ONE (09:00)
[2021-03-01] MEDS: ISOSORBIDE MONONITRATE 30 MG TAB.XL.24H PO SCH ×2 (09:32→21:45)
[2021-03-01] MEDS: LOSARTAN 50 MG TABLET PO SCH ×2 (09:32→09:35)
[2021-03-01] MEDS: NIFEdipine 30 MG TAB.XL.24H PO SCH ×2 (09:32→21:46)
--- NOTE | 2021-03-01 12:08 | Colonoscopy Procedure Note ---
Colonoscopy Procedure Notes Procedure Information Patient information: Note initiated : 03/01/21 at 11:58 am Service Date: 02/28/21 Patient: Harika Palomino 75 y/o F admitted on 02/28/21 for blood in stool x 2 days/GI Bleed. Pre-op diagnosis general: GI Bleeding, Abnormal CT Scan Post-op diagnosis general: Resolved diverticular bleed, False Positive CT Scan Procedure: Colonoscopy with control of bleed Procedure narrative: The procedure, alternatives and risks were discussed with the patient and the patient's questions were answered. With endoscopist- administered intravenous sedation, the Olympus colonoscope was introduced into the rectum and advanced to the cecum. Ileocecal valve was identified, intubated, and several centimeters of the terminal ileum were examined and appeared normal. Multiple Diverticula are seen in the left colon. There was an ulceration seen in the base of a sigmoid diverticulitis, which was clipped. There was no blood staining in the right colon or terminal ileum. Hemostasis was achieved. However if he rebleeds, he will require repeat colonoscopy. He should avoid all Aspirin and NSAID's. Assessment: Resolved diverticular bleed, False Positive CT Scan
--- NOTE | 2021-03-01 12:20 | Internal Med Progress Note ---
SUBJECTIVE Subjective Patient information: Note initiated : 03/02/21 at 12:19 pm Service Date, if different from initiated Date: [] Patient: Harika Palomino a 75 y/o F admitted on 02/28/21 for blood in stool x 2 days/GI Bleed. Chief Complaint: [] Interval history: History of present illness: Ms. Palomino is a 75 year old F Presents the ED with bleeding per rectum. Patient states that she had Hemoccult positive stool testing the past and she will underwent a colonoscopy last fall but it made her really sick and has not done anything since then. Several days ago she started having bright red blood per rectum as well as some dark blood and then she has developed some clots today. She says she had about 10 episodes since evening of the fourth. Hemoglobin is 9.3. He also reports some abdominal cramping and achiness and was found have a leukocytosis of 18. CT imaging showed colitis of the ascending and transverse colon colon. Dr. Gould was contacted who will perform colonoscopy. Systolic blood pressure in the low 100s. She is on aspirin Plavix for history of CAD and stroke. She does have have chronic diarrhea. She had some nausea but no vomiting. *colonoscopy did not reveal any colitis, just diverticulosis as likely the source of bleeding. 03/01 Patient doing well. Responded to blood transfusion well. Colonoscopy with diverticulosis is the source of bleeding. Patient had a little bit of dark stool but no red blood. Review of Systems: denies headache/fever/chills//vomiting/chest or abdominal pain/cough/dyspnea/diarrhea. Otherwise see above. Constitutional Vitals: Vital Signs Temp Pulse Resp BP Pulse Ox 97.9 F 75 16 152/61 92 03/01/21 08:00 03/01/21 08:00 03/01/21 08:00 03/01/21 08:00 03/01/21 08:00 Period Temp Pulse Resp BP Sys/Jean-Baptiste Pulse Ox Last 24 Hr 97.5 F-98.8 F 72-91 14-22 86-152/40-99 92-100 Intake and Output 02/28/21 03/01/21 03/01/21 21:59 05:59 13:59 Intake Total 556 1443 402 Output Total 850 200 Balance -294 1443 202 Weight 51.256 kg Intake & Output: Intake & Output 02/28/21 03/01/21 03/01/21 21:59 05:59 13:59 Intake Total 556 1443 402 Output Total 850 200 Balance -294 1443 202 Weight 51.256 kg Intake: IV 556 337 402 Sodium Chloride 0.9% 1,000 ml @ 256 75 mls/hr IV .[id number] [facility] Rx#: [id number] Sodium Chloride 0.9% 250 ml @ 37 20 mls/hr IV .[id number] [facility] Rx#: [id number] Magnesium Sulfate 8.12 Meq In 52 Dextrose 5% in Water 50 ml @ 52 mls/hr IV ONCE ONE Rx#: [id number] Oral 440 Blood Product 333 Packed Cells 333 Output: Urine/Stool Mix 350 200 Stool 500 Other: Stool Size Large Small Stool Color Brown Brown Stool Consistency Liquid Loose Soft Watery Loose Loose # Bowel Movements 1 # of times incontinent of 1 Bowels Exam: General: Alert, Awake, No acute Distress Eyes/N/T: EOMI, Head/Neck: neck supple, CV: RRR, 3/6 SM, Pulm: Clear b/l, no wheezing/rhonchi/rales Abd: soft, +BS x4 Ext: no clubbing/cyanosis, 1-2+ b/l LE edema Neuro: Alert, no focal deficits, moves all extremities, Skin: warm/dry OBJ DATA Labs CBC & Chem 7: 03/01/21 05:33 03/01/21 05:33 Labs: Abnormal Lab Results 03/01/21 03/01/21 03/01/21 05:33 05:33 05:33 WBC RBC 3.06 L Hgb 9.1 L Hct 26.5 L POC Hct RDW 15.1 H MPV 11.6 H Neut % (Auto) 80.0 H Lymph % (Auto) 12.2 L Lymph # (Auto) 1.22 L [place] # (Auto) Absolute Neutrophils PT INR APTT Sodium Potassium 2.9 L* POC BUN BUN Glucose POC Glucose Calcium 8.1 L POC WB Ioniz Calcium Magnesium 0.9 L* 0.8 L* Direct Bilirubin 0.3 H AST 41 H Total Protein 5.4 L Albumin 3.1 L 02/28/21 02/28/21 02/28/21 19:16 09:31 09:31 WBC RBC Hgb 7.8 L Hct 23.2 L POC Hct 28 L RDW MPV Neut % (Auto) Lymph % (Auto) Lymph # (Auto) Hernando # (Auto) Absolute Neutrophils PT 15.3 H INR 1.2 H APTT 57.0 H Sodium 132 L Potassium POC BUN 32 H BUN 34 H Glucose 115 H POC Glucose 123 H Calcium POC WB Ioniz Calcium 1.13 L Magnesium Direct Bilirubin AST 36 H Total Protein Albumin 02/28/21 09:31 WBC 18.4 H RBC 3.12 L Hgb 9.3 L Hct 27.1 L POC Hct RDW 15.2 H MPV 11.5 H Neut % (Auto) 82.9 H Lymph % (Auto) 8.7 L Lymph # (Auto) [place] # (Auto) 1.43 H Absolute Neutrophils 15.23 H PT INR APTT Sodium Potassium POC BUN BUN Glucose POC Glucose Calcium POC WB Ioniz Calcium Magnesium Direct Bilirubin AST Total Protein Albumin Meds: Medications Acetaminophen (Acetaminophen 325 Mg Tablet) 650 mg PO Q6HP PRN PRN Reason: PAIN/FEVER > 101 Albuterol/Ipratropium (Ipratropium/Albuterol 3 Ml Ampul.Neb) 3 ml NEB Q4HP PRN PRN Reason: Shortness Of Breath Alprazolam (Alprazolam 0.25 Mg Tablet) 0.25 mg PO QHS PRN PRN Reason: anxiety Atorvastatin Calcium (Atorvastatin 40 Mg Tablet) 80 mg PO [facility] Last Admin: 02/28/21 21:00 Dose: Not Given Documented by: Carvedilol (Carvedilol 12.5 Mg Tablet) 12.5 mg PO BIDCOX MONETT Last Admin: 03/01/21 07:23 Dose: 12.5 mg Documented by: Dextrose (Dextrose 50% 50 Ml Vial) 0 ml IV UD PRN PRN Reason: Hypoglycemia Diagnostic Test (Pha) (Accu-Chek 1 Each Strip) 1 each FS ACHS [facility] Last Admin: 03/01/21 11:51 Dose: 1 each Documented by: Fluoxetine HCl (Fluoxetine Hcl 20 Mg Capsule) 20 mg PO [facility] Last Admin: 02/28/21 21:52 Dose: 20 mg Documented by: Glucose (Dextrose 31 Gm Oral.Susp) 15 gm PO PRN PRN PRN Reason: Hypoglycemia Potassium Chloride 40 meq/ (Dextrose) 520 mls @ 130 mls/hr IV UD PRN PRN Reason: Potassium < 3 Last Admin: 03/01/21 08:24 Dose: 130 mls/hr Documented by: Magnesium Sulfate (Magnesium Sulfate) 2 gm in 50 mls @ 50 mls/hr IV UD PRN PRN Reason: Magnesium </= 1.6 Last Infusion: 03/01/21 09:17 Dose: Infused Documented by: Ciprofloxacin (Cipro) 400 mg in 200 mls @ 200 mls/hr IV Q12H [facility]; Protocol Last Infusion: 03/01/21 11:36 Dose: Infused Documented by: Metronidazole (Flagyl) 500 mg in 100 mls @ 100 mls/hr IV Q8H [facility]; Protocol Last Infusion: 03/01/21 07:01 Dose: Infused Documented by: Insulin Glargine (Insulin Glargine, Human 1 Unit/0.01 Ml) 5 unit SQ [facility] Last Admin: 02/28/21 22:00 Dose: Not Given Documented by: Insulin Human Lispro (Insulin Lispro 1 Unit/0.01 Ml Unit) 0 unit SQ [facility]; Protocol Last Admin: 03/01/21 11:51 Dose: 6 unit Documented by: Isosorbide Mononitrate (Isosorbide Mononitrate 30 Mg Tab.Xl.24h) 30 mg PO BID [facility] Last Admin: 03/01/21 09:32 Dose: 30 mg Documented by: Nifedipine (Nifedipine 30 Mg Tab.Xl.24h) 60 mg PO BID [facility] Last Admin: 03/01/21 09:32 Dose: 60 mg Documented by: Ondansetron HCl (Ondansetron 4 Mg/2 Ml Vial) 4 mg IV Q4HP PRN PRN Reason: Nausea And Vomiting Last Admin: 02/28/21 22:05 Dose: 4 mg Documented by: Pantoprazole Sodium (Pantoprazole 40 Mg Tablet) 40 mg PO BIDAC [facility] Last Admin: 03/01/21 07:23 Dose: 40 mg Documented by: Potassium Chloride (Potassium Chloride 20 Meq Tablet) 40 meq PO UD PRN PRN Reason: Potssium is 3-3.5 Potassium Chloride (Potassium Chloride 20 Meq Tablet) 40 meq PO UD PRN PRN Reason: Potassium < 3 Last Admin: 03/01/21 08:33 Dose: 40 meq Documented by: Senna (Sennosides 1 Tablet) 2 tab PO DAILYP PRN PRN Reason: Constipation Sodium Chloride (0.9 % Sodium Chloride 10 Ml Syringe) 10 ml IV Q8 DEYSI Last Admin: 03/01/21 06:09 Dose: 10 ml Documented by: A/P Narrative A/P Narrative: Assessment: 75-year-old female with hypertension, diabetes mellitus, history of CAD status post stenting (on ASA and Plavix), history of CVA,, depression, anxiety admitted for acute on chronic anemia secondary to lower GI bleed secondary to diverticulosis. During the colonoscopy, the patient had a clip placed at an ulceration seen at the base of the sigmoid diverticula. Multiple diverticula were seen in the left colon, no evidence of bleeding from the right colon or terminal ileum. The patient received 1 unit of pRBC. Stable after the colonoscopy. *GIB, lower: 2/2 diverticulosis per colonoscopy -no evidence of colitis found on colonoscopy *Acute blood loss anemia, on chronic: -1prbc (02/28), responded well *DM: *CAD w/stent: *h/o CVA: on asa/plavix *peripheral edema: on lasix *HTN: *Depression/anxiety: *GERD: *Tobacco abuse: * P: -Dr. Gould following -monitor H&H -Held aspirin/Plavix initially, restart staggered tomorrow -cont statin -cont BB, hold CCB/ACEI for low-normal BP -compression stockings -basal and SSI -Smoking cessation counseling -ppx: SCD/home ppi DNR Time Spent With Patient Time: Total time spent is greater than 50% in coordination of care (as documented) at patient's floor/unit and/or counseling patient:
[2021-03-01] MEDS: ATORVASTATIN 40 MG TABLET PO SCH (21:45)
[2021-03-01] MEDS: INSULIN GLARGINE, HUMAN 1 UNIT/0.01 ML SQ SCH (21:46)
[2021-03-01] MEDS: FLUoxetine HCL 20 MG CAPSULE PO SCH (21:46)
[2021-03-02] MEDS: metroNIDAZOLE 500 MG/100 ML BAG IV SCH (06:00)
[2021-03-02] MEDS: 0.9 % SODIUM CHLORIDE 10 ML SYRINGE IV SCH (06:00)
[2021-03-02 07:20] LABS: Hematocrit 26.5 % (36.0-48.0)
[2021-03-02 07:47] LABS: Blood Urea Nitrogen 9 mg/dL (8-23); Calcium 8.7 mg/dL (8.6-10.4); Carbon Dioxide 24 mmol/L (22-30); Chloride 101 mmol/L (96-108); Glomerular Filtration Rate 72; Glucose 106 mg/dL (70-105)
[2021-03-02] MEDS: INSULIN LISPRO 1 UNIT/0.01 ML UNIT SQ SCH (08:09)
[2021-03-02] MEDS: PANTOPRAZOLE 40 MG TABLET PO SCH (09:13)
[2021-03-02] MEDS: CARVEDILOL 12.5 MG TABLET PO SCH (09:13)
[2021-03-02] MEDS: ISOSORBIDE MONONITRATE 30 MG TAB.XL.24H PO SCH (09:13)
[2021-03-02] MEDS: CIPROFLOXACIN 400 MG/200 ML BAG IV SCH (09:14)
[2021-03-02] MEDS: NIFEdipine 30 MG TAB.XL.24H PO SCH (09:15)
--- NOTE | 2021-03-02 09:20 | Discharge Summary ---
Discharge Provider Provider Patient information: Note initiated : 03/02/21 at 9:15 am Service Date, if different from initiated Date: [] Patient: Harika Palomino 75 y/o F admitted on 02/28/21 for blood in stool x 2 days/GI Bleed. Chief Complaint: [] Date of admission: 02/28/21 13:45 Discharge date: 03/02/21 Primary care physician: Obie Self PA-C Consults: 02/28/21 Consult to Physician [CONS] Stat Comment: Consulting Provider: Garett Gonzalez Reason For Exam: Physician to Consult 02/28/21 13:57 Consult to Physician [CONS] Routine Comment: Consulting Provider: Rell Ordonez Reason For Exam: Physician to Consult Discharge Meds Discharge Medications Home Medications pen needle, diabetic 32 gauge x 1/4" #100 each 01/07/18 [Rx Confirmed 02/28/21 Last Taken Unknown] blood sugar diagnostic #100 each 05/02/20 [Rx Confirmed 02/28/21 Last Taken Unknown] pen needle, diabetic 32 gauge x 5/16" #100 each 05/02/20 [Rx Confirmed 02/28/21 Last Taken Unknown] pantoprazole 20 mg tablet,delayed release 20 mg PO BID 90 Days #180 tab 09/18/20 [Rx Confirmed 02/28/21 Last Taken 02/28/21 08:00] clopidogrel 75 mg tablet 75 mg PO QDAY 90 Days #90 tab 10/24/20 [Rx Confirmed 02/28/21 Last Taken 02/27/21 08:00] furosemide 20 mg tablet 20 mg PO QAM 90 Days #90 tab 10/24/20 [Rx Confirmed 02/28/21 Last Taken 02/28/21 08:00] nifedipine 60 mg tablet,extended release 60 mg PO BID 90 Days #180 tab 10/24/20 [Rx Confirmed 02/28/21 Last Taken 02/28/21 08:00] Lantus Solostar U-100 Insulin 100 unit/mL (3 mL) subcutaneous pen 5 unit SUB-Q QPM #15 ml NS 12/20/20 [Rx Confirmed 02/28/21 Last Taken 02/27/21 21:00] alprazolam 0.25 mg tablet 0.25 mg PO QHS PRN #30 tab 12/21/20 [Rx Confirmed 02/28/21 Last Taken 02/26/21 21:00] isosorbide mononitrate 30 mg tablet,extended release 24 hr 30 mg PO BID 90 Days #180 tab 01/23/21 [Rx Confirmed 02/28/21 Last Taken 02/28/21 08:00] atorvastatin 80 mg PO HS 02/28/21 [History Confirmed 02/28/21 Last Taken 02/27/21 21:00] carvedilol 12.5 mg PO BID 02/28/21 [History Confirmed 02/28/21 Last Taken 02/28/21 08:00] cholecalciferol (vitamin D3) [Vitamin D3] 10 mcg PO QDAY 02/28/21 [History Confirmed 02/28/21 Last Taken 02/28/21 08:00] fenofibrate 160 mg PO HS 02/28/21 [History Confirmed 02/28/21 Last Taken 02/27/21 21:00] fluoxetine 20 mg PO HS 02/28/21 [History Confirmed 02/28/21 Last Taken 02/27/21 21:00] loperamide 2 mg PO PRN PRN 02/28/21 [History Confirmed 02/28/21 Last Taken Unknown] multivitamin 1 tab PO QDAY #30 tab 03/02/21 [Rx Last Taken Unknown] COURSE Hospital Course Hospital course: 75-year-old female with hypertension, diabetes mellitus, history of CAD status post stenting (was on ASA and Plavix), history of CVA,, depression, anxiety, chronic pain (on naproxen) admitted for acute on chronic anemia secondary to lower GI bleed secondary to diverticulosis. During the colonoscopy, the patient had a clip placed at an ulceration seen at the base of the sigmoid diverticula. Multiple diverticula were seen in the left colon, no evidence of bleeding from the right colon or terminal ileum. The patient received 1 unit of pRBC. Monitored after colonoscopy and stable. Discharged to home, did not resume aspirin and naproxen at discharge. Resumed home plavix per GI. Follow up with PCP and GI. Post hospital follow up; Check hemoglobin level for GI bleed follow up. Discharge diagnosis: Lower GI bleed Secondary discharge diagnosis: Acute on chronic anemia Time Spent with Patient Time attestation: Total time spent providing and/or coordinating discharge services: EXAM Constitutional Vitals: Temp Pulse Resp BP Pulse Ox 97.1 F 96 H 20 154/66 93 03/02/21 08:00 03/02/21 08:00 03/02/21 08:00 03/02/21 08:00 03/02/21 08:00 Additional findings Additional findings: Head: Atraumatic, normal inspection. Eyes: normal appearance, no scleral icterus. Neck: full ROM Respiratory: no respiratory distress. Cardiovascular: normal rate and rhythm, S1, S2. GI/Abdominal: soft, nontender, no guarding. Extremities: full range of motion, nontender. Neurological: CN II-XII intact, intact motor, intact sensation. Psychiatric: normal mood. Skin: warm, normal color Discharge Data Data Completed and Pending Labs on day of discharge: Labs from last 24 hours 03/02/21 03/02/21 03/01/21 05:25 05:25 14:00 Hgb 9.0 L Hct 26.5 L Sodium 132 L Potassium 4.3 4.2 Chloride 101 Carbon Dioxide 24 Anion Gap 7.0 L BUN 9 Creatinine 0.8 GFR Calculation 72 Glucose 106 H Calcium 8.7 Magnesium 2.0 03/01/21 05:33 Hgb Hct Sodium Potassium Chloride Carbon Dioxide Anion Gap BUN Creatinine GFR Calculation Glucose Calcium Magnesium 0.9 L* Preliminary micro results at discharge 02/28/21 14:55 Stool Culture - Preliminary Stool Discharge Plan Patient/Caregiver Discharge Instructions Activity: increase activity as tolerated Diet: Consistent Carbohydrate Prescriptions: New multivitamin Tablet 1 tab PO QDAY Qty: 30 RF: 3 Continued (DME) pen needle, diabetic [Comfort EZ Pen [place]] 32 gauge x 1/4" needle See Dose Instructions .ROUTE .MEDSUPPLY Qty: 100 RF: 1 (DME) blood sugar diagnostic Strip See Dose Instructions .ROUTE .MEDSUPPLY Qty: 100 RF: 1 (DME) Comfort EZ Pen [place] 32 gauge x 5/16" needle See Rx Instructions .ROUTE .MEDSUPPLY Qty: 100 RF: 0 pantoprazole 20 mg tablet,delayed release (DR/EC) 20 mg PO BID 90 Days Qty: 180 RF: 1 nifedipine 60 mg tablet extended release 60 mg PO BID 90 Days Qty: 180 RF: 1 furosemide 20 mg tablet 20 mg PO QAM 90 Days Qty: 90 RF: 1 clopidogrel 75 mg tablet 75 mg PO QDAY 90 Days Qty: 90 RF: 1 alprazolam 0.25 mg tablet 0.25 mg PO QHS PRN (Reason: anxiety) Qty: 30 RF: 0 isosorbide mononitrate 30 mg tablet extended release 24 hr 30 mg PO BID 90 Days Qty: 180 RF: 1 Lantus Solostar U-100 Insulin 100 unit/mL (3 mL) insulin pen 5 unit SUB-Q QPM Qty: 15 RF: 2 carvedilol 25 mg tablet 12.5 mg PO BID RF: 0 atorvastatin 80 mg tablet 80 mg PO HS RF: 0 fenofibrate 160 mg Tablet 160 mg PO HS RF: 0 fluoxetine 20 mg Tablet 20 mg PO HS RF: 0 cholecalciferol (vitamin D3) [Vitamin D3] 10 mcg (400 unit) Tablet 10 mcg PO QDAY RF: 0 loperamide 2 mg Tablet 2 mg PO PRN PRN (Reason: Diarrhea) RF: 0 Discontinued aspirin 81 mg tablet,delayed release (DR/EC) 81 mg PO HS RF: 0 multivitamin Tablet 1 tab PO QAM RF: 0 naproxen sodium [Aleve] 220 mg Tablet 440 mg PO Q12H PRN (Reason: Pain) RF: 0 Follow Up Plan Follow up with: Obie Self PA-C [Primary Care Provider] - Rell Ordonez MD [Physician] - 03/23/21 Patient Disposition: Home, Self-Care Prognosis: Fair Overall status at discharge: patient is progressing back to baseline Discharge Orders: Discharge Order (Routine); Ordered 03/02/21 Ordered By: Evert Rabago
== END 2021-03-02 11:23 | disposition home or self-care (01) ==
LOC: ICU 09:24 → ED 09:24 → ICU 13:58
PROVIDERS: ADMIT Internal Medicine; ATTEND Internal Medicine

== ENCOUNTER 2021-04-03 15:36 | Inpatient (IN) ==
[2021-04-03] MEDS ORDERED: IOPAMIDOL 100 ML BOTTLE IV ONE (15:37)
[2021-04-03] MEDS ORDERED: morphine 4 MG/ML VIAL IV ONE ×3 (16:08→19:19)
--- NOTE | 2021-04-03 16:54 | Emergency Department Note ---
Fall HPI General Chief Complaint: Fall Stated Complaint: fall, left arm pain/swelling, right leg pain Time Seen by Provider: 04/03/21 16:06 Source: patient Mode of arrival: EMS History of Present Illness HPI Narrative: Patient is a 75-year-old lady who arrives to the emergency department by ambulance accompanied by her complaining of a fall. History is provided by the patient with some supplemental information from her . She says she was carrying groceries on their deck when she slipped and fell down about 4 steps into their crawlspace. She immediately had pain in her right knee and left shoulder as well as the posterior ribs on the left. She tried to get up but was unable to do so because of the pain in her knee. She called out to her who found her and called 911 and she was transported to the emergency department. Patient says she did not hit her head. She was awake and alert throughout the fall. Moving her left upper extremity and right lower extremity makes her pain worse. Related Data Home Medications Medication Instructions Recorded Confirmed atorvastatin 80 mg PO HS 02/28/21 04/03/21 carvedilol 25 mg PO BID 02/28/21 04/03/21 fenofibrate 160 mg PO HS 02/28/21 04/03/21 fluoxetine 20 mg PO HS 02/28/21 04/03/21 loperamide 4 - 6 mg PO QAM 02/28/21 04/03/21 alprazolam 0.25 mg PO QPMP PRN 04/03/21 04/03/21 cholecalciferol (vitamin D3) 100 mcg PO QDAY 04/03/21 04/03/21 [Vitamin D3] ferrous sulfate [Slow Fe] 142 mg PO QDAY 04/03/21 04/03/21 Previous Rx's Medication Instructions Recorded pen needle, diabetic 32 gauge x #100 each 01/07/18 1/" blood sugar diagnostic #100 each 05/02/20 pen needle, diabetic 32 gauge x #100 each 05/02/2004/09" clopidogrel 75 mg tablet 75 mg PO QDAY 90 Days #90 tab 10/24/20 furosemide 20 mg tablet 20 mg PO QAM 90 Days #90 tab 10/24/20 nifedipine 60 mg tablet,extended 60 mg PO BID 90 Days #180 tab 10/24/20 release Lantus Solostar U-100 Insulin 100 5 unit SUB-Q QPM #15 ml NS 12/20/20 unit/mL (3 mL) subcutaneous pen isosorbide mononitrate 30 mg 30 mg PO BID 90 Days #180 tab 01/23/21 tablet,extended release 24 hr multivitamin 1 tab PO QDAY #30 tab 03/02/21 pantoprazole 20 mg tablet,delayed 20 mg PO BID 90 Days #180 tab 03/20/21 release Allergies Allergy/AdvReac Type Severity Reaction Status Date / Time lisinopril AdvReac Mild Cough Verified 04/03/21 15:39 Review of Systems ROS ROS Narrative: Narrative: All systems ED: reviewed and negative except as stated. 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 Medical/Surgical/Family History All Active Problems (Updated 04/04/21 @ 07:23 by Arsh Pitts DO) Fracture of humeral head, closed (Acute) Multiple rib fractures (Acute) Patellar fracture (Acute) Acute GI bleeding (Acute) Irritable bowel syndrome with diarrhea (Chronic) Cystocele (Chronic) Biceps rupture, proximal (Chronic) Aortic stenosis (Chronic) S/P coronary artery stent placement (Chronic) Urinary tract infection (Acute) Gastroenteritis (Acute) Transient ischemic attack (TIA) (Chronic) S/P wrist surgery (Chronic) Fracture of wrist (Acute) Finger fracture, right (Acute) Gastrointestinal problem (Chronic) History of esophagogastroduodenoscopy (EGD) (Chronic 11/06/16) Diabetic peripheral neuropathy (Chronic) History of tonsillectomy (Chronic) History of colonoscopy (Chronic 11/06/16) History of cholecystectomy (Chronic) History of adenoidectomy (Chronic) Tricuspid valve disease (Chronic) Tobacco abuse (Chronic) Sciatica (Chronic) Restless legs (Chronic) Pseudophakia (Chronic) Postmenopausal status (age-related) (natural) (Chronic) Osteopenia (Chronic) Osteoarthrosis (Chronic) Lumbago (Chronic) 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) Disorder of kidney and ureter (Chronic) Hyponatremia (Chronic) Hypertension, essential (Chronic) Hyperlipidemia (Chronic) Esophageal reflux (Chronic) Diverticulitis of colon (Chronic 11/14/12) Diabetes mellitus, type II (Chronic) Depression (Chronic) Colonic polyp (Chronic) CAD (coronary artery disease) (Chronic) Blepharitis (Chronic) Anxiety disorder (Chronic) Medical History (Updated 04/04/21 @ 07:23 by Arsh Pitts DO) Anxiety disorder Aortic stenosis Biceps rupture, proximal RIGHT Blepharitis (07/21/2014 Dr Chambers) CAD (coronary artery disease) Colonic polyp Cystocele Depression Diabetes mellitus, type II Disorder of kidney and ureter Diverticulitis of colon (11/14/12) Esophageal reflux Gastrointestinal problem chronic vomiting and diarrhea dating back to childhood Hyperlipidemia Hypertension, essential Hyponatremia Irritable bowel syndrome with diarrhea technician terminal and 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 current use of insulin Lumbago Osteoarthrosis Osteopenia Postmenopausal status (age-related) (natural) Pseudophakia (07/21/2014 Dr Chambers) Restless legs Sciatica Sinusitis Tobacco abuse Transient ischemic attack (TIA) Tricuspid valve disease Murmur Surgical History History of adenoidectomy as a child History of cholecystectomy November 2002 Post operative pancreatitis History of colonoscopy (11/06/16) 11/14/13 Dr Saab History of esophagogastroduodenoscopy (EGD) (11/06/16) History of tonsillectomy as a child S/P coronary artery stent placement LAD May 2018 S/P wrist surgery 06/10/2017 RIGHT wrist ORIF, Dr. Pereira Family History Mother , (or cerebral aneurysm) Aortic aneurysm, Onset Age: 44 Bipolar affective disorder Migraine without aura Hypertension Rheumatic fever Secondary heart murmur Son Asthma Cardiac conduction disorder Family history of diabetes mellitus Hypertension Mitral valve stenosis Obesity Malignant Neoplasm of Thyroid Gland not specified, malignant Father Cardiac arrest, Onset Age: 51 Maternal Grandfather Nonruptured cerebral aneurysm, Onset Age: 37 ruptured, Paternal Grandfather , committed suicide Depression Sister Family history of diabetes mellitus Hypertension Obesity Sister with status post gastric bypass Sons Migraine Social History Smoking Status: Current every day smoker Alcohol Intake Frequency: does not drink Substance Use: does not use Exam Narrative Narrative: Gen -patient is awake and alert and appears somewhat uncomfortable but in no acute distress. HEENT -head is atraumatic. There is no conjunctival pallor or scleral icterus. Cervical spine is nontender to palpation CV -S1-S2 regular rate and rhythm. Peripheral pulses are palpable. There is exquisite tenderness to palpation over the lower ribs in the posterior left side without any palpable crepitus or bony deformity. Resp -breathing is nonlabored. Lungs are clear to auscultation bilaterally. There is no cyanosis. GI - Abdomen is soft and nontender to palpation. There is no guarding or rebound tenderness. Derm -skin is warm and dry. MSK -there is significant edema and exquisite tenderness to palpation over the anterior right shoulder. The clavicle is nontender to palpation. There is limited external rotation flexion and extension of the left shoulder due to pain. Patient's left elbow wrist and hand are nontender to palpation with good range of motion. Sensation in the hand is intact. There is a large patch of ecchymosis with palpable underlying edema and a large abrasion over the left anterior thigh without any significant underlying bony tenderness. Pelvis is stable and there is good range of motion at both hips. There is exquisite tenderness to palpation over the lateral joint line of the right knee without any palpable underlying bony deformity. There is significant overlying edema of the soft tissues and a superficial abrasion over the anterior patella. Patient has very limited flexion of the knee due to pain. There is no appreciable ligamentous laxity. Patient's right foot and ankle are nontender to palpation with a palpable posterior tibial pulse. Sensation of the foot is intact. Psych -patient has appropriate affect. Neuro -patient answers questions appropriately with fluent speech. Patient moves all present extremities equally. Course Vital Signs Vital signs: Vital Signs Temperature 98.5 F 04/03/21 15:36 Pulse Rate 73 04/03/21 15:36 Respiratory Rate 18 04/03/21 15:36 Blood Pressure 168/61 04/03/21 15:36 Pulse Oximetry (%) 99 04/03/21 15:36 Temperature 98.1 F 04/04/21 07:15 Pulse Rate 70 04/04/21 07:15 Respiratory Rate 20 04/04/21 07:15 Blood Pressure 167/60 04/04/21 07:15 Pulse Oximetry (%) 96 04/04/21 07:15 [facility] Narrative Medical decision making narrative: Patient presents following a mechanical fall. Initial imaging revealed a left humerus fracture multiple rib fractures and no obvious fracture of the right lower extremity. On reassessment, the patient still has very restricted range of motion with her knee. Because of this I obtained a CT scan of the right knee that does reveal a patellar fracture. I reviewed the test results with the patient and her . Her pain is re asonably well controlled while lying in bed. We will attempt ambulation prior to discharge. Dr. Reece assumed care at the change of shift. Lab Data Result diagrams: 04/04/21 05:23 04/04/21 05:23 Labs: Lab Results 04/03/21 04/03/21 04/03/21 Range/Units 19:30 19:30 19:30 WBC 16.2 H (4.5-11.0) K/mcL RBC 3.43 L (4.00-5.20) M/mcL Hgb 10.4 L (12.0-15.0) g/dL Hct 30.2 L (36.0-48.0) % MCV 88.0 (80.0-100.0) fL MCH 30.3 (26.0-34.0) pg MCHC 34.4 (31.0-36.0) g/dL RDW 15.8 H (11.5-14.5) % Plt Count 278 (140-440) K/mcL MPV 11.3 H (7.4-10.4) fL Neut % (Auto) 87.8 H (38.0-78.0) % Lymph % (Auto) 6.0 L (15.0-49.0) % [place] % (Auto) 5.9 (1.0-12.0) % Eos % (Auto) 0.1 (0.0-7.0) % Baso % (Auto) 0.2 (0.0-2.0) % Lymph # (Auto) 0.97 L (1.50-4.80) K/mcL [place] # (Auto) 0.95 H (0.10-0.90) K/mcL Eos # (Auto) 0.02 (0.00-0.70) K/mcL Baso # (Auto) 0.04 (0.00-0.20) K/mcL Absolute Neutrophils 14.23 H (1.80-8.00) K/mcL Sodium 131 L (133-145) mmol/L Potassium 4.0 (3.3-5.1) mmol/L Chloride 98 (96-108) mmol/L Carbon Dioxide 24 (22-30) mmol/L Anion Gap 9.0 (8.0-16.0) BUN 26 H (8-23) mg/dL Creatinine 0.8 (0.6-1.1) mg/dL GFR Calculation 72 Glucose 137 H (70-105) mg/dL Calcium 9.4 (8.6-10.4) mg/dL Total Bilirubin 0.6 (0.1-1.0) mg/dL AST 57 H (<32) U/L ALT 30 (<40) U/L Alkaline Phosphatase 62 (39-117) U/L Troponin T < 0.01 (<0.03) ng/mL Total Protein 6.0 (5.9-8.4) gm/dL Albumin 3.5 (3.2-5.2) gm/dL Globulin 2.5 (2.2-3.7) gm/dL Albumin/Globulin Ratio 1.4 (1.0-2.3) ED POC Tests ED POC Tests: RODRIGUEZ - SARS Antigen Negative Discharge Plan Patient/Caregiver Discharge Instructions Pt seen by WEB SYSTEMS DEVELOPER/PA only: No Clinical Impression: Fracture of humeral head, closed, Multiple rib fractures, Patellar fracture Patient Disposition: Still a Patient Condition: Fair Discharge Date/Time: 04/03/21 23:00
--- NOTE | 2021-04-03 16:59 | XRay Report ---
HISTORY: Fell down stairs with left shoulder injury FINDINGS: There is an acute minimally displaced multi partite fracture of the humeral head. There is a nondisplaced transverse fracture through the surgical neck with no angulation or impaction. The greater tuberosity is fractured and the fragment is displaced inferiorly and laterally. The humeral head remains normally aligned with the glenoid. AC joint is normal. There is a fracture laterally in the left ninth rib. IMPRESSION: Multi partite fracture of the left humeral head Fractured left ninth rib Interpreted and Authenticated by: Drake Campos 04/03/21
--- NOTE | 2021-04-03 17:03 | XRay Report ---
HISTORY: Fell downstairs FINDINGS: A nondisplaced fracture is present laterally in the left seventh rib. The accompanying shoulder x-ray also demonstrated a fracture of the ninth rib. No pneumothorax or pleural effusion are present. A 2.8 cm nodule is present behind the left heart border. 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 It has not enlarged. The lungs are otherwise clear. There is no widening of the mediastinum. The heart size is normal. There are calcified plaques in the aortic arch. IMPRESSION: Fractured left seventh and ninth ribs Interpreted and Authenticated by: Drake Campos 04/03/21
--- NOTE | 2021-04-03 17:04 | XRay Report ---
HISTORY: Fell down stairs with knee injury FINDINGS: No fracture or dislocation are present. There has osteoarthritis with mild joint space narrowing and formation of small marginal spurs. Large suprapatellar joint effusion is noted. There is a moderate amount calcified plaque in the popliteal artery. The bones are osteoporotic. IMPRESSION: No fracture Joint effusion Arthritis Interpreted and Authenticated by: Drake Campos 04/03/21
[2021-04-03] MEDS ORDERED: LIDOCAINE PATCH TOPICAL ONE (17:40)
--- NOTE | 2021-04-03 18:14 | Cat Scan Report ---
History: Fell with injury to the lateral aspect of the right knee and joint effusion TECHNIQUE: The knee was imaged without contrast in axial plane at 2.5 mm intervals. Sagittal and coronal reformats were created. The radiation exposure was limited using dose reduction technology. FINDINGS: There is a small sagittally oriented fracture along the lateral border of the patella. This is displaced posteriorly 5 mm. Associated with this is a large joint effusion. No other fracture is present. There is underlying osteoarthritis with moderate narrowing of medial lateral joint compartments between the femoral condyles and tibial plateaus. Associated with this are small spurs. Chondrocalcinosis is seen in both medial lateral menisci. Moderate amount calcified plaque is present in the arteries in the thigh popliteal fossa and upper calf. IMPRESSION: Small mildly displaced fracture of the lateral border of the patella Interpreted and Authenticated by: Drake Campos 04/03/21
[2021-04-03 20:20] LABS: Basophils # (Auto) 0.04 K/mcL (0.00-0.20); Basophils % (Auto) 0.2 % (0.0-2.0); Eosinophils # (Auto) 0.02 K/mcL (0.00-0.70); Eosinophils % (Auto) 0.1 % (0.0-7.0); Hematocrit 30.2 % (36.0-48.0); Hemoglobin 10.4 g/dL (12.0-15.0); Lymphocytes # (Auto) 0.97 K/mcL (1.50-4.80); Mean Corpuscular HGB Conc 34.4 g/dL (31.0-36.0); Mean Platelet Volume 11.3 fL (7.4-10.4); Monocytes # (Auto) 0.95 K/mcL (0.10-0.90); Monocytes % (Auto) 5.9 % (1.0-12.0); Neutrophils % (Auto) 87.8 % (38.0-78.0); Platelet Count 278 K/mcL (140-440); RBC 3.43 M/mcL (4.00-5.20); Red Cell Distribution Width 15.8 % (11.5-14.5); WBC 16.2 K/mcL (4.5-11.0)
[2021-04-03 20:48] LABS: ALT/SGPT 30 U/L (<40); AST/SGOT 57 U/L (<32); Albumin 3.5 gm/dL (3.2-5.2); Albumin/Globulin Ratio 1.4 (1.0-2.3); Alkaline Phosphatase 62 U/L (39-117); Bilirubin,Total 0.6 mg/dL (0.1-1.0); Blood Urea Nitrogen 26 mg/dL (8-23); Calcium 9.4 mg/dL (8.6-10.4); Carbon Dioxide 24 mmol/L (22-30); Chloride 98 mmol/L (96-108); Globulin 2.5 gm/dL (2.2-3.7); Glomerular Filtration Rate 72; Glucose 137 mg/dL (70-105)
--- NOTE | 2021-04-03 21:35 | Emergency Department Note ---
Fall HPI General Chief Complaint: Fall Stated Complaint: fall, left arm pain/swelling, right leg pain Time Seen by Provider: 04/03/21 16:06 Source: patient Mode of arrival: EMS History of Present Illness HPI Narrative: Narrative: Related Data Home Medications Medication Instructions Recorded Confirmed atorvastatin 80 mg PO HS 02/28/21 04/03/21 carvedilol 25 mg PO DAILY 02/28/21 04/03/21 fenofibrate 160 mg PO HS 02/28/21 04/03/21 fluoxetine 20 mg PO HS 02/28/21 04/03/21 loperamide 2 mg PO PRN PRN 02/28/21 04/03/21 alprazolam 0.25 mg PO QHS PRN 04/03/21 04/03/21 cholecalciferol (vitamin D3) 100 mcg PO QDAY 04/03/21 04/03/21 [Vitamin D3] Previous Rx's Medication Instructions Recorded pen needle, diabetic 32 gauge x #100 each 01/07/1811/28" blood sugar diagnostic #100 each 05/02/20 pen needle, diabetic 32 gauge x #100 each 05/02/2004/09" clopidogrel 75 mg tablet 75 mg PO QDAY 90 Days #90 tab 10/24/20 furosemide 20 mg tablet 20 mg PO QAM 90 Days #90 tab 10/24/20 nifedipine 60 mg tablet,extended 60 mg PO BID 90 Days #180 tab 10/24/20 release Lantus Solostar U-100 Insulin 100 5 unit SUB-Q QPM #15 ml NS 12/20/20 unit/mL (3 mL) subcutaneous pen isosorbide mononitrate 30 mg 30 mg PO BID 90 Days #180 tab 01/23/21 tablet,extended release 24 hr multivitamin 1 tab PO QDAY #30 tab 03/02/21 pantoprazole 20 mg tablet,delayed 20 mg PO BID 90 Days #180 tab 03/20/21 release Allergies Allergy/AdvReac Type Severity Reaction Status Date / Time lisinopril AdvReac Mild Cough Verified 04/03/21 15:39 Review of Systems ROS ROS Narrative: Narrative: PFSH Narrative Patient History Narrative: Narrative: Medical/Surgical/Family History All Active Problems (Updated 04/03/21 @ 21:44 by Michael Reece MD) Fracture of humeral head, closed (Acute) Multiple rib fractures (Acute) Patellar fracture (Acute) Acute GI bleeding (Acute) Irritable bowel syndrome with diarrhea (Chronic) Cystocele (Chronic) Biceps rupture, proximal (Chronic) Aortic stenosis (Chronic) S/P coronary artery stent placement (Chronic) Urinary tract infection (Acute) Gastroenteritis (Acute) Transient ischemic attack (TIA) (Chronic) S/P wrist surgery (Chronic) Fracture of wrist (Acute) Finger fracture, right (Acute) Gastrointestinal problem (Chronic) History of esophagogastroduodenoscopy (EGD) (Chronic 11/06/16) Diabetic peripheral neuropathy (Chronic) History of tonsillectomy (Chronic) History of colonoscopy (Chronic 11/06/16) History of cholecystectomy (Chronic) History of adenoidectomy (Chronic) Tricuspid valve disease (Chronic) Tobacco abuse (Chronic) Sciatica (Chronic) Restless legs (Chronic) Pseudophakia (Chronic) Postmenopausal status (age-related) (natural) (Chronic) Osteopenia (Chronic) Osteoarthrosis (Chronic) Lumbago (Chronic) residential current use of insulin (Chronic) Disorder of kidney and ureter (Chronic) Hyponatremia (Chronic) Hypertension, essential (Chronic) Hyperlipidemia (Chronic) Esophageal reflux (Chronic) Diverticulitis of colon (Chronic 11/14/12) Diabetes mellitus, type II (Chronic) Depression (Chronic) Colonic polyp (Chronic) CAD (coronary artery disease) (Chronic) Blepharitis (Chronic) Anxiety disorder (Chronic) Medical History (Updated 04/03/21 @ 21:44 by Michael Reece MD) Anxiety disorder Aortic stenosis Biceps rupture, proximal RIGHT Blepharitis (07/21/2014 Dr Chambers) CAD (coronary artery disease) Colonic polyp Cystocele Depression Diabetes mellitus, type II Disorder of kidney and ureter Diverticulitis of colon (11/14/12) Esophageal reflux Gastrointestinal problem chronic vomiting and diarrhea dating back to childhood Hyperlipidemia Hypertension, essential Hyponatremia Irritable bowel syndrome with diarrhea residential current use of insulin Lumbago Osteoarthrosis Osteopenia Postmenopausal status (age-related) (natural) Pseudophakia (07/21/2014 Dr Chambers) Restless legs Sciatica Sinusitis Tobacco abuse Transient ischemic attack (TIA) Tricuspid valve disease Murmur Surgical History History of adenoidectomy as a child History of cholecystectomy November 2002 Post operative pancreatitis History of colonoscopy (11/06/16) 11/14/13 Dr Saab History of esophagogastroduodenoscopy (EGD) (11/06/16) History of tonsillectomy as a child S/P coronary artery stent placement LAD May 2018 S/P wrist surgery 06/10/2017 RIGHT wrist ORIF, Dr. Pereira Family History Mother , (or cerebral aneurysm) Aortic aneurysm, Onset Age: 44 Bipolar affective disorder Migraine without aura Hypertension Rheumatic fever Secondary heart murmur Son Asthma Cardiac conduction disorder Family history of diabetes mellitus Hypertension Mitral valve stenosis Obesity Malignant Neoplasm of Thyroid Gland not specified, malignant Father Cardiac arrest, Onset Age: 51 Maternal Grandfather Nonruptured cerebral aneurysm, Onset Age: 37 ruptured, Paternal Grandfather , committed suicide Depression Sister Family history of diabetes mellitus Hypertension Obesity Sister with status post gastric bypass Sons Migraine Social History Smoking Status: Current every day smoker Alcohol Intake Frequency: does not drink Substance Use: does not use Exam Narrative Narrative: Narrative: Course Vital Signs Vital signs: Vital Signs Temperature 98.5 F 04/03/21 15:36 Pulse Rate 73 04/03/21 15:36 Respiratory Rate 18 04/03/21 15:36 Blood Pressure 168/61 04/03/21 15:36 Pulse Oximetry (%) 99 04/03/21 15:36 Temperature 98.5 F 04/03/21 15:36 Pulse Rate 73 04/03/21 21:24 Respiratory Rate 18 04/03/21 15:36 Blood Pressure 154/92 04/03/21 20:47 Pulse Oximetry (%) 93 04/03/21 21:24 [facility] Narrative Medical decision making narrative: Narrative:. I assumed care of this patient at 1700. I personally confirmed the history and examined the patient. The p atient had x-rays which demonstrated multipartite fracture of the left femoral head. CT scan of the right knee shows fracture of the patella. Chest x-ray showed fractures of the ribs 7 and 9 on the left side. At the time I assumed care of the patient was pending evaluation with knee immobilizer, sling and crutch to determine if she would be a candidate for outpatient treatment. The patient was unable to ambulate and is having difficulty tolerating pain. The patient is also splinting due to the pain in her chest and her oxygen saturation was 88%. I did obtain labs which were reviewed. I also obtain a CT scan of the chest abdomen pelvis which excludes pulmonary contusion as well as hemo pneumothorax. The patient's CT scan does confirm fractures of ribs 7, 8 and 9. I did discuss the case with the on-call orthopedic physician, Dr. Damon. I have also discussed the case with the hospitalist, Dr. Osborn. The patient will be admitted to the medical floor for further evaluation and management. Lab Data Lab results reviewed: Yes I reviewed the patient's lab results. Result diagrams: 04/03/21 19:30 04/03/21 19:30 Labs: Lab Results 04/03/21 04/03/21 04/03/21 Range/Units 19:30 19:30 19:30 WBC 16.2 H (4.5-11.0) K/mcL RBC 3.43 L (4.00-5.20) M/mcL Hgb 10.4 L (12.0-15.0) g/dL Hct 30.2 L (36.0-48.0) % MCV 88.0 (80.0-100.0) fL MCH 30.3 (26.0-34.0) pg MCHC 34.4 (31.0-36.0) g/dL RDW 15.8 H (11.5-14.5) % Plt Count 278 (140-440) K/mcL MPV 11.3 H (7.4-10.4) fL Neut % (Auto) 87.8 H (38.0-78.0) % Lymph % (Auto) 6.0 L (15.0-49.0) % [place] % (Auto) 5.9 (1.0-12.0) % Eos % (Auto) 0.1 (0.0-7.0) % Baso % (Auto) 0.2 (0.0-2.0) % Lymph # (Auto) 0.97 L (1.50-4.80) K/mcL [place] # (Auto) 0.95 H (0.10-0.90) K/mcL Eos # (Auto) 0.02 (0.00-0.70) K/mcL Baso # (Auto) 0.04 (0.00-0.20) K/mcL Absolute Neutrophils 14.23 H (1.80-8.00) K/mcL Sodium 131 L (133-145) mmol/L Potassium 4.0 (3.3-5.1) mmol/L Chloride 98 (96-108) mmol/L Carbon Dioxide 24 (22-30) mmol/L Anion Gap 9.0 (8.0-16.0) BUN 26 H (8-23) mg/dL Creatinine 0.8 (0.6-1.1) mg/dL GFR Calculation 72 Glucose 137 H (70-105) mg/dL Calcium 9.4 (8.6-10.4) mg/dL Total Bilirubin 0.6 (0.1-1.0) mg/dL AST 57 H (<32) U/L ALT 30 (<40) U/L Alkaline Phosphatase 62 (39-117) U/L Troponin T < 0.01 (<0.03) ng/mL Total Protein 6.0 (5.9-8.4) gm/dL Albumin 3.5 (3.2-5.2) gm/dL Globulin 2.5 (2.2-3.7) gm/dL Albumin/Globulin Ratio 1.4 (1.0-2.3) Radiology Data Radiology results reviewed: Yes I reviewed the patient's radiology results. EKG Data EKG #1: EKG attestation: Yes I reviewed and interpreted this EKG., Yes There are no EKG findings of acute coronary syndrome and Yes This EKG will be read by windows server architect EKG results narrative: Normal sinus rhythm, rate 78, normal ST segment, no ectopy, normal QRS Rhythm Strip Data Rhythm Strip Rate: 80 Interpretation: Normal sinus rhythm Pulse Oximetry Data Pulse Ox %: 93 Interpretation: Hypoxia corrected on 2 L Discharge Plan Patient/Caregiver Discharge Instructions Pt seen by EMERGENCY MANAGEMENT CONSULTANT/PA only: No Clinical Impression: Fracture of humeral head, closed, Multiple rib fractures, Patellar fracture Patient Disposition: Xfer As Inpt ([facility]) Condition: Fair Follow up with: Obie Self PA-C [Primary Care Provider] - Prescriptions: No Action (DME) pen needle, diabetic [Comfort EZ Pen [place]] 32 gauge x 1/4" needle See Dose Instructions .ROUTE .MEDSUPPLY Qty: 100 RF: 1 (DME) blood sugar diagnostic Strip See Dose Instructions .ROUTE .MEDSUPPLY Qty: 100 RF: 1 (DME) Comfort EZ Pen [place] 32 gauge x 5/16" needle See Rx Instructions .ROUTE .MEDSUPPLY Qty: 100 RF: 0 nifedipine 60 mg tablet extended release 60 mg PO BID 90 Days Qty: 180 RF: 1 furosemide 20 mg tablet 20 mg PO QAM 90 Days Qty: 90 RF: 1 clopidogrel 75 mg tablet 75 mg PO QDAY 90 Days Qty: 90 RF: 1 isosorbide mononitrate 30 mg tablet extended release 24 hr 30 mg PO BID 90 Days Qty: 180 RF: 1 pantoprazole 20 mg tablet,delayed release (DR/EC) 20 mg PO BID 90 Days Qty: 180 RF: 1 Lantus Solostar U-100 Insulin 100 unit/mL (3 mL) insulin pen 5 unit SUB-Q QPM Qty: 15 RF: 2 carvedilol 25 mg tablet 25 mg PO DAILY RF: 0 atorvastatin 80 mg tablet 80 mg PO HS RF: 0 fenofibrate 160 mg Tablet 160 mg PO HS RF: 0 fluoxetine 20 mg Tablet 20 mg PO HS RF: 0 loperamide 2 mg Tablet 2 mg PO PRN PRN (Reason: Diarrhea) RF: 0 multivitamin Tablet 1 tab PO QDAY Qty: 30 RF: 3 Vitamin D3 100 mcg (4,000 unit) Capsule 100 mcg PO QDAY RF: 0 alprazolam 0.25 mg tablet 0.25 mg PO QHS PRN (Reason: Restless Leg(S)) RF: 0
--- NOTE | 2021-04-03 22:12 | Internal Med History&Physical ---
HPI History of Present Illness Patient information: Note initiated : 04/03/21 at 10:06 pm Service Date, if different from initiated Date: [] Patient: Harika Palomino a 75 y/o F admitted on for fall, left arm pain/swelling, right leg pain. Chief Complaint: Fall/pain History of present illness: Ms. Palomino is a 75 year old F who presents to the ER after she slipped and fell 4 steps down the deck sustaining injury to her right knee, left shoulder and left chest. She was brought into the ER by EMS. Initial work-up was consistent with 7-9th left rib fracture without evidence of pneumothorax along with right basilar fracture, left humeral head fracture. Patient was started on a sling subsequently hospital service was consulted. Due to inadequate pain relief hospital service was consulted for admission At the time of my examination patient is accompanied with her Richy. She was able to answer most the question. Her pain is significantly improved on the left side following lidocaine patch/opioids. She denies precipitating events prior to fall including lightheadedness, dizziness and attributes to getting off balance. She did not lose consciousness or experienced a seizure episode. Review of systems 10 point review system was performed and is negative except for 1 discussed above PFSH PFSH All Active Problems (Updated 04/03/21 @ 21:44 by Michael Reece MD) Fracture of humeral head, closed (Acute) Multiple rib fractures (Acute) Patellar fracture (Acute) Acute GI bleeding (Acute) Irritable bowel syndrome with diarrhea (Chronic) Cystocele (Chronic) Biceps rupture, proximal (Chronic) Aortic stenosis (Chronic) S/P coronary artery stent placement (Chronic) Urinary tract infection (Acute) Gastroenteritis (Acute) Transient ischemic attack (TIA) (Chronic) S/P wrist surgery (Chronic) Fracture of wrist (Acute) Finger fracture, right (Acute) Gastrointestinal problem (Chronic) History of esophagogastroduodenoscopy (EGD) (Chronic 11/06/16) Diabetic peripheral neuropathy (Chronic) History of tonsillectomy (Chronic) History of colonoscopy (Chronic 11/06/16) History of cholecystectomy (Chronic) History of adenoidectomy (Chronic) Tricuspid valve disease (Chronic) Tobacco abuse (Chronic) Sciatica (Chronic) Restless legs (Chronic) Pseudophakia (Chronic) Postmenopausal status (age-related) (natural) (Chronic) Osteopenia (Chronic) Osteoarthrosis (Chronic) Lumbago (Chronic) nursing home current use of insulin (Chronic) Disorder of kidney and ureter (Chronic) Hyponatremia (Chronic) Hypertension, essential (Chronic) Hyperlipidemia (Chronic) Esophageal reflux (Chronic) Diverticulitis of colon (Chronic 11/14/12) Diabetes mellitus, type II (Chronic) Depression (Chronic) Colonic polyp (Chronic) CAD (coronary artery disease) (Chronic) Blepharitis (Chronic) Anxiety disorder (Chronic) Medical History (Updated 04/03/21 @ 21:44 by Michael Reece MD) Anxiety disorder Aortic stenosis Biceps rupture, proximal RIGHT Blepharitis (07/21/2014 Dr Chambers) CAD (coronary artery disease) Colonic polyp Cystocele Depression Diabetes mellitus, type II Disorder of kidney and ureter Diverticulitis of colon (11/14/12) Esophageal reflux Gastrointestinal problem chronic vomiting and diarrhea dating back to childhood Hyperlipidemia Hypertension, essential Hyponatremia Irritable bowel syndrome with diarrhea nursing home current use of insulin Lumbago Osteoarthrosis Osteopenia Postmenopausal status (age-related) (natural) Pseudophakia (07/21/2014 Dr Chambers) Restless legs Sciatica Sinusitis Tobacco abuse Transient ischemic attack (TIA) Tricuspid valve disease Murmur Surgical History History of adenoidectomy as a child History of cholecystectomy November 2002 Post operative pancreatitis History of colonoscopy (11/06/16) 11/14/13 Dr Saab History of esophagogastroduodenoscopy (EGD) (11/06/16) History of tonsillectomy as a child S/P coronary artery stent placement LAD May 2018 S/P wrist surgery 06/10/2017 RIGHT wrist ORIF, Dr. Pereira Family History Mother , (or cerebral aneurysm) Aortic aneurysm, Onset Age: 44 Bipolar affective disorder Migraine without aura Hypertension Rheumatic fever Secondary heart murmur Son Asthma Cardiac conduction disorder Family history of diabetes mellitus Hypertension Mitral valve stenosis Obesity Malignant Neoplasm of Thyroid Gland not specified, malignant Father Cardiac arrest, Onset Age: 51 Maternal Grandfather Nonruptured cerebral aneurysm, Onset Age: 37 ruptured, Paternal Grandfather , committed suicide Depression Sister Family history of diabetes mellitus Hypertension Obesity Sister with status post gastric bypass Sons Migraine Social History (Updated 03/20/21 @ 08:43 by Obie Self PA-C) household members: spouse housing: house lives independently: Yes marital status: smoking status: Current every day smoker tobacco type: cigarettes per day: 3 alcohol intake frequency: does not drink substance use type: does not use MEDS/ALLERGIES Home Medications and Allergies Home Medications Medication Instructions Recorded Confirmed Type pen needle, diabetic 32 gauge x #100 each 01/07/18 04/03/21 Rx 1/4" blood sugar diagnostic #100 each 05/02/20 04/03/21 Rx pen needle, diabetic 32 gauge x #100 each 05/02/20 04/03/21 Rx 5/16" clopidogrel 75 mg tablet 75 mg PO QDAY 90 Days #90 tab 10/24/20 04/03/21 Rx furosemide 20 mg tablet 20 mg PO QAM 90 Days #90 tab 10/24/20 04/03/21 Rx nifedipine 60 mg tablet,extended 60 mg PO BID 90 Days #180 tab 10/24/20 04/03/21 Rx release Lantus Solostar U-100 Insulin 100 5 unit SUB-Q QPM #15 ml NS 12/20/20 04/03/21 Rx unit/mL (3 mL) subcutaneous pen isosorbide mononitrate 30 mg 30 mg PO BID 90 Days #180 tab 01/23/21 04/03/21 Rx tablet,extended release 24 hr atorvastatin 80 mg PO HS 02/28/21 04/03/21 History carvedilol 25 mg PO DAILY 02/28/21 04/03/21 History fenofibrate 160 mg PO HS 02/28/21 04/03/21 History fluoxetine 20 mg PO HS 02/28/21 04/03/21 History loperamide 2 mg PO PRN PRN 02/28/21 04/03/21 History multivitamin 1 tab PO QDAY #30 tab 03/02/21 04/03/21 Rx pantoprazole 20 mg tablet,delayed 20 mg PO BID 90 Days #180 tab 03/20/21 04/03/21 Rx release alprazolam 0.25 mg PO QHS PRN 04/03/21 04/03/21 History cholecalciferol (vitamin D3) 100 mcg PO QDAY 04/03/21 04/03/21 History [Vitamin D3] Allergies Allergy/AdvReac Type Severity Reaction Status Date / Time lisinopril AdvReac Mild Cough Verified 04/03/21 15:39 EXAM Constitutional Vitals: Temp Pulse Resp BP Pulse Ox 98.5 F 75 18 154/92 94 04/03/21 15:36 04/03/21 22:00 04/03/21 15:36 04/03/21 20:47 04/03/21 22:00 Alert oriented Head normocephalic and atraumatic Oral cavity moist No ear or nose discharge Eye no subconjunctival pallor, movement symmetrical S1-S2 regular Pleuritic pain/left-sided contusion and bruising, minimally labored breathing Nondistended nontender abdomen Left arm in sling right knee tenderness, Skin no suspicious lesion Psych anxious but no hallucination Neuro normal higher function on limited neuro exam DATA Data Completed and Pending Labs: Labs from last 24 hours 04/03/21 04/03/21 04/03/21 19:30 19:30 19:30 WBC 16.2 H RBC 3.43 L Hgb 10.4 L Hct 30.2 L MCV 88.0 MCH 30.3 MCHC 34.4 RDW 15.8 H Plt Count 278 MPV 11.3 H Neut % (Auto) 87.8 H Lymph % (Auto) 6.0 L [place] % (Auto) 5.9 Eos % (Auto) 0.1 Baso % (Auto) 0.2 Lymph # (Auto) 0.97 L [place] # (Auto) 0.95 H Eos # (Auto) 0.02 Baso # (Auto) 0.04 Absolute Neutrophils 14.23 H Sodium 131 L Potassium 4.0 Chloride 98 Carbon Dioxide 24 Anion Gap 9.0 BUN 26 H Creatinine 0.8 GFR Calculation 72 Glucose 137 H Calcium 9.4 Total Bilirubin 0.6 AST 57 H ALT 30 Alkaline Phosphatase 62 Troponin T < 0.01 Total Protein 6.0 Albumin 3.5 Globulin 2.5 Albumin/Globulin Ratio 1.4 A/P Narrative A/P Narrative: * Multiple rib fracture left seventh through ninth-continue multimodal pain management, incentive spirometer use, monitor for pneumothorax/hemothorax and pulmonary contusion was interval chest imaging. * Left humerus fracture and right patellar fracture, orthopedic consulted, nonoperative, continue pain management * Anxiety started continue alprazolam * History of CAD continue Plavix/statin/Coreg/isosorbide * DM type II continue basal prandial insulin/CC diet * GERD continue PPI * HLD continue fenofibrate/statin * Prophylaxis SCDs Plan * Inpatient admission * Monitor for pneumothorax/pulmonary contusion, avoid fluid overload * Pre-existing medical condition management as above * Multimodal pain management * PT OT nutrition support * Aggressive incentive spirometer use Time Spent With Patient Time: Total time spent is greater than 50% in coordination of care (as documented) at patient's floor/unit and/or counseling patient:
[2021-04-03] MEDS ORDERED: ACETAMINOPHEN 325 MG TABLET PO PRN (23:21)
[2021-04-03] MEDS ORDERED: traMADol 50 MG TABLET PO PRN (23:21)
[2021-04-03] MEDS ORDERED: ALPRAZolam 0.25 MG TABLET PO PRN (23:21)
[2021-04-03] MEDS ORDERED: POLYETHYLENE GLYCOL 3350 17 GM PACKET PO PRN (23:21)
[2021-04-03] MEDS ORDERED: BISACODYL 10 MG SUPP.RECT PR PRN (23:21)
[2021-04-03] MEDS ORDERED: POTASSIUM CHLORIDE 40 MEQ in DEXTROSE 5% IN WATER 500 ML IV PRN (23:21)
[2021-04-03] MEDS ORDERED: METOPROLOL TARTRATE 5 MG/5 ML VIAL IV PRN (23:21)
[2021-04-03] MEDS ORDERED: DEXTROSE 31 GM ORAL.SUSP PO PRN (23:21)
[2021-04-03] MEDS ORDERED: MELATONIN 3 MG TABLET PO PRN (23:21)
[2021-04-03] MEDS ORDERED: POTASSIUM CHLORIDE 20 MEQ PACKET PO PRN (23:21)
[2021-04-03] MEDS ORDERED: CAPSAICIN 0.025% CREAM.TOP 60GM TOPICAL PRN (23:21)
[2021-04-03] MEDS ORDERED: ONDANSETRON 4 MG/2 ML VIAL IV PRN (23:21)
[2021-04-03] MEDS ORDERED: ACETAMINOPHEN 650 MG/65 ML BAG IV PRN (23:21)
[2021-04-03] MEDS ORDERED: ONDANSETRON 4 MG ODT TABLET SL PRN (23:21)
[2021-04-03] MEDS ORDERED: DEXTROSE 50% 50 ML VIAL IV PRN (23:21)
[2021-04-03] MEDS ORDERED: HYDROcodone/APAP 5/325MG TABLET PO ONE (23:25)
[2021-04-03] MEDS: HYDROcodone/APAP 5/325MG TABLET PO PRN (23:29)
[2021-04-03] MEDS: 0.9 % SODIUM CHLORIDE 1,000 ML IV SCH (23:45)
[2021-04-04] MEDS: LIDOCAINE PATCH TOPICAL SCH ×2 (00:15→21:00)
[2021-04-04] MEDS ORDERED: HYDROcodone/APAP 5/325MG TABLET PO ONE (04:23)
[2021-04-04] MEDS: HYDROcodone/APAP 5/325MG TABLET PO PRN ×5 (04:23→22:17)
[2021-04-04] MEDS: 0.9 % SODIUM CHLORIDE 10 ML SYRINGE IV SCH ×3 (05:43→20:44)
[2021-04-04] MEDS ORDERED: LOPERAMIDE 2 MG CAPSULE PO PRN (06:13)
[2021-04-04 06:28] LABS: Basophils # (Auto) 0.02 K/mcL (0.00-0.20); Basophils % (Auto) 0.2 % (0.0-2.0); Eosinophils # (Auto) 0 K/mcL (0.00-0.70); Eosinophils % (Auto) 0 % (0.0-7.0); Hematocrit 28.6 % (36.0-48.0); Hemoglobin 9.5 g/dL (12.0-15.0); Lymphocytes % (Auto) 10.7 % (15.0-49.0); Mean Cell Volume 89.9 fL (80.0-100.0); Mean Corpuscular HGB Conc 33.2 g/dL (31.0-36.0); Mean Platelet Volume 11.1 fL (7.4-10.4); Monocytes # (Auto) 0.89 K/mcL (0.10-0.90); Monocytes % (Auto) 8.7 % (1.0-12.0); Neutrophils % (Auto) 80.4 % (38.0-78.0); Platelet Count 236 K/mcL (140-440); RBC 3.18 M/mcL (4.00-5.20); Red Cell Distribution Width 15.7 % (11.5-14.5); WBC 10.3 K/mcL (4.5-11.0)
[2021-04-04 06:53] LABS: ALT/SGPT 25 U/L (<40); AST/SGOT 47 U/L (<32); Albumin 3.2 gm/dL (3.2-5.2); Albumin/Globulin Ratio 1.2 (1.0-2.3); Alkaline Phosphatase 57 U/L (39-117); Bilirubin,Direct 0.3 mg/dL (<0.3); Bilirubin,Total 0.7 mg/dL (0.1-1.0); Blood Urea Nitrogen 22 mg/dL (8-23); Calcium 8.9 mg/dL (8.6-10.4); Carbon Dioxide 24 mmol/L (22-30); Chloride 99 mmol/L (96-108); Globulin 2.6 gm/dL (2.2-3.7); Glomerular Filtration Rate 85; Glucose 114 mg/dL (70-105); Lactate Dehydrogenase 226 U/L (135-225); Phosphorous 4.4 mg/dL (2.5-4.5); Triglycerides 89 mg/dL (<150); Uric Acid 4.9 mg/dL (2.5-8.0)
[2021-04-04] MEDS: PANTOPRAZOLE 40 MG TABLET PO SCH ×2 (07:27→17:44)
[2021-04-04] MEDS: INSULIN LISPRO 1 UNIT/0.01 ML UNIT SQ SCH ×4 (07:52→23:08)
--- NOTE | 2021-04-04 07:56 | Cat Scan Report ---
History: Fell with multiple injuries including rib, knee, shoulder fractures and abdominal injury TECHNIQUE: Following injection of intravenous nonionic contrast the patient was scanned during the portal venous phase from the thoracic inlet through the symphysis pubis. Sagittal and coronal reformats are created along with additional axial MIPS images of the chest. The radiation exposure was limited using dose reduction technology. FINDINGS: CHEST: Comminuted fracture is present in the head and neck of the proximal left humerus. There is mild displacement and impaction. There are also fractures laterally in the left seventh eighth and ninth ribs. No pneumothorax or pleural effusion are present. There has mild dependent atelectasis in both lung bases, left greater than right. No pulmonary contusion is present. There are numerous small peripheral noncalcified nodules in both lungs. They are predominantly located posteriorly in the upper lobes and superior segments of both lower lobes. They range from 2 to 4 mm in size. They have increased in number and size since the prior chest CT done on 11/08/17. There is a stable well-circumscribed 1.9 x 2.0 cm mass in the anterior basal segment of the left lower lobe, behind the left heart border. This has not enlarged since 2017. No enlarged or calcified lymph nodes are seen in the mediastinum nor hari. Patient has a small hiatus hernia. Heart size is upper limits of normal. Large amount of atherosclerotic plaque is present in the coronary arteries. There is also moderate amount plaque along the wall of a normal caliber thoracic aorta. There is no aortic dissection. There is arthritis in the spine but no spinal or sternal fracture are present. Abdomen and pelvis: The liver and spleen are normal in size and homogeneous. The gallbladder is surgically absent. The pancreas is normal in size and homogeneous. The adrenals are normal and symmetric. There are two simple cysts in the left kidney. The larger is located anteriorly in the upper half and measures 1.9 x 2.0 cm. Smaller is located exophytically laterally in the middle one third and measures 7 x 8 mm. The right kidney is normal. No solid mass, stone, hydronephrosis or hemorrhage are present in either kidney. Large amount calcified plaque is present in the aorta and iliac arteries. There is ectasia of the mid abdominal aorta. It measures 2.0 x 2.1 cm. There is a short segment of dilated proximal jejunum in the left mid abdomen. Measures 3.8 cm. There is no transition point. This may be related to peristalsis or focal ileus. Small intestine is otherwise normal. There is thickening of the wall of the cecum and proximal ascending colon. This was seen on the prior CT done on 02/28/21. The wall of the cecum measures up to 1.4 cm. The thickening has improved but not resolved. There is no associated narrowing of the lumen. The terminal ileum is normal. There is no evidence of appendicitis. No ascites, intra-abdominal hemorrhage or free air are present in the abdomen or pelvis. Bone windows demonstrate advanced arthritis in the lower lumbar spine, predominantly involving the facet joints. There is no fracture of the spine pelvis or hips. Bladder is normal and well distended. Uterus and ovaries are atrophic. No adenopathy is present. IMPRESSION: Fractured left shoulder and left seventh eighth and ninth ribs No lacerated organs or intra-abdominal hemorrhage Chronic thickening of the wall of the cecum and ascending colon. This is more likely due to colitis rather than a neoplasm. Increasing number of small peripheral nodules in both lungs. These are nonspecific but more likely due to a granulomatous infection rather than metastasis. Stable 2 cm mass in the anterior basal segment left lower lobe which may be a hamartoma. Severe atherosclerotic disease Dr. Reece was called with the report Interpreted and Authenticated by: Drake Campos 04/04/21
[2021-04-04] MEDS: CLOPIDOGREL 75 MG TABLET PO SCH (08:23)
[2021-04-04] MEDS: MULTIVIT,THER IRON,CA,FA & MIN 1 TABLET PO SCH (08:23)
[2021-04-04] MEDS: NIFEdipine 30 MG TAB.XL.24H PO SCH ×2 (08:24→20:42)
[2021-04-04] MEDS: ISOSORBIDE MONONITRATE 30 MG TAB.XL.24H PO SCH ×2 (08:24→20:42)
[2021-04-04] MEDS: FUROSEMIDE 20 MG TABLET PO SCH (08:24)
[2021-04-04] MEDS: CARVEDILOL 12.5 MG TABLET PO SCH (08:24)
[2021-04-04] MEDS: DOCUSATE SODIUM 100 MG CAPSULE PO SCH ×2 (08:37→20:39)
--- NOTE | 2021-04-04 10:24 | Internal Med Progress Note ---
SUBJECTIVE Subjective Patient information: Note initiated : 04/04/21 at 10:21 am Service Date, if different from initiated Date: [] Patient: Harika Palomino a 75 y/o F admitted on 04/03/21 for fall, left arm pain/swelling, right leg pain. Chief Complaint: [] Interval history: Ms. Palomino is a 75 year old F who presents to the ER after she slipped and fell 4 steps down the deck sustaining injury to her right knee, left shoulder and left chest. She was brought into the ER by EMS. Initial work-up was consistent with 7-9th left rib fracture without evidence of pneumothorax along with right basilar fracture, left humeral head fracture. Patient was started on a sling subsequently hospital service was consulted. Due to inadequate pain relief hospital service was consulted for admission At the time of my examination patient is accompanied with her Richy. She was able to answer most the question. Her pain is significantly improved on the left side following lidocaine patch/opioids. She denies precipitating events prior to fall including lightheadedness, dizziness and attributes to getting off balance. She did not lose consciousness or experienced a seizure episode. 04/04-patient currently on pain control. Orthopedic consulted. Recommends nonoperative intervention/multimodal pain management/sling. Tolerating diet. Complains of pleuritic chest pain. No family at bedside. Constitutional Vitals: Vital Signs Temp Pulse Resp BP Pulse Ox 98.1 F 70 20 167/60 99 04/04/21 07:15 04/04/21 07:15 04/04/21 07:15 04/04/21 07:15 04/04/21 09:28 Period Temp Pulse Resp BP Sys/Jean-Baptiste Pulse Ox Last 24 Hr 98.1 F-99.0 F 70-81 16-20 144-184/57-98 86-99 Intake and Output 04/03/21 04/04/21 04/04/21 21:59 05:59 13:59 Intake Total 0 Balance 0 Weight 48.988 kg 51.392 kg alert oriented Anxious Rapid shallow breathing Nondistended abdomen Intake & Output: Intake & Output 04/03/21 04/04/21 04/04/21 21:59 05:59 13:59 Intake Total 0 Balance 0 Weight 48.988 kg 51.392 kg Intake: Oral 0 OBJ DATA Labs CBC & Chem 7: 04/04/21 05:23 04/04/21 05:23 Labs: Abnormal Lab Results 04/04/21 04/04/21 04/03/21 05:23 05:23 19:30 WBC RBC 3.18 L Hgb 9.5 L Hct 28.6 L RDW 15.7 H MPV 11.1 H Neut % (Auto) 80.4 H Lymph % (Auto) 10.7 L Lymph # (Auto) 1.10 L [place] # (Auto) Absolute Neutrophils 8.25 H Sodium 132 L 131 L BUN 26 H Glucose 114 H 137 H Magnesium 1.1 L Direct Bilirubin 0.3 H AST 47 H 57 H Lactate Dehydrogenase 226 H Total Protein 5.8 L 04/03/21 19:30 WBC 16.2 H RBC 3.43 L Hgb 10.4 L Hct 30.2 L RDW 15.8 H MPV 11.3 H Neut % (Auto) 87.8 H Lymph % (Auto) 6.0 L Lymph # (Auto) 0.97 L [place] # (Auto) 0.95 H Absolute Neutrophils 14.23 H Sodium BUN Glucose Magnesium Direct Bilirubin AST Lactate Dehydrogenase Total Protein Meds: Medications Acetaminophen (Acetaminophen 325 Mg Tablet) 650 mg PO Q4-6HP PRN; Protocol PRN Reason: Per Pain Protocol/Fever > 101 Hydrocodone Bitart/Acetaminophen (Hydrocodone/Apap 5/325mg Tablet) 1 - 2 tab PO Q4HP PRN; Protocol PRN Reason: Per Pain Protocol Last Admin: 04/04/21 09:12 Dose: 1 tab Documented by: Alprazolam (Alprazolam 0.25 Mg Tablet) 0.25 mg PO HSP PRN PRN Reason: Restless Leg(S) Atorvastatin Calcium (Atorvastatin 40 Mg Tablet) 80 mg PO HS [facility] Bisacodyl (Bisacodyl 10 Mg Supp.Rect) 10 mg OK Q2-3DAYS PRN PRN Reason: Constipation Capsaicin (Capsaicin 0.025% Cream.Top 60gm) 1 dose TOPICAL QIDP PRN PRN Reason: Muscle Pain Carvedilol (Carvedilol 12.5 Mg Tablet) 25 mg PO DAILY [facility] Last Admin: 04/04/21 08:24 Dose: 25 mg Documented by: Clopidogrel Bisulfate (Clopidogrel 75 Mg Tablet) 75 mg PO QDAY [facility] Last Admin: 04/04/21 08:23 Dose: 75 mg Documented by: Dextrose (Dextrose 50% 50 Ml Vial) 0 ml IV UD PRN PRN Reason: Hypoglycemia Diagnostic Test (Pha) (Accu-Chek 1 Each Strip) 1 each FS ACHS [facility] Last Admin: 04/04/21 07:27 Dose: 1 each Documented by: Docusate Sodium (Docusate Sodium 100 Mg Capsule) 100 mg PO BID [facility] Last Admin: 04/04/21 08:37 Dose: Not Given Documented by: Fluoxetine HCl (Fluoxetine Hcl 20 Mg Capsule) 20 mg PO [facility] Furosemide (Furosemide 20 Mg Tablet) 20 mg PO QAM [facility] Last Admin: 04/04/21 08:24 Dose: 20 mg Documented by: Glucose (Dextrose 31 Gm Oral.Susp) 15 gm PO PRN PRN PRN Reason: Hypoglycemia Potassium Chloride 40 meq/ (Dextrose) 520 mls @ 130 mls/hr IV UD PRN PRN Reason: K+ = or < 3.5 Acetaminophen (Ofirmev) 650 mg in 65 mls @ 130 mls/hr IV Q6HP PRN; Protocol PRN Reason: Per Pain Protocol/Fever > 101 Magnesium Sulfate (Magnesium Sulfate) 2 gm in 50 mls @ 50 mls/hr IV UD PRN PRN Reason: MG = or < 1.7 Sodium Chloride (Sodium Chloride 0.9%) 1,000 mls @ 50 mls/hr IV .Q20H [facility] Stop: 04/06/21 11:20 Last Admin: 04/03/21 23:45 Dose: 50 mls/hr Documented by: Insulin Glargine (Insulin Glargine, Human 1 Unit/0.01 Ml) 5 unit SQ QPM [facility] Insulin Human Lispro (Insulin Lispro 1 Unit/0.01 Ml Unit) 0 unit SQ [facility]; Protocol Last Admin: 04/04/21 07:52 Dose: Not Given Documented by: Iron Carb/Multivit/Asotin/Folic Acid (Multivit,Ther Iron,Ca,Fa & Min 1 Tablet) 1 tab PO DAILY [facility] Last Admin: 04/04/21 08:23 Dose: 1 tab Documented by: Isosorbide Mononitrate (Isosorbide Mononitrate 30 Mg Tab.Xl.24h) 30 mg PO BID [facility] Last Admin: 04/04/21 08:24 Dose: 30 mg Documented by: Lidocaine (Lidocaine Patch) 1 patch TOPICAL [facility] Last Admin: 04/04/21 00:15 Dose: Not Given Documented by: Loperamide HCl (Loperamide 2 Mg Capsule) 2 mg PO PRN PRN PRN Reason: Diarrhea Melatonin (Melatonin 3 Mg Tablet) 3 mg PO HSP PRN PRN Reason: Insomnia Metoprolol Tartrate (Metoprolol Tartrate 5 Mg/5 Ml Vial) 5 mg IV Q5M PRN PRN Reason: Heart Rate > 140 bpm Nifedipine (Nifedipine 30 Mg Tab.Xl.24h) 60 mg PO BID [facility] Last Admin: 04/04/21 08:24 Dose: 60 mg Documented by: Ondansetron HCl (Ondansetron 4 Mg Odt Tablet) 4 mg SL Q4-6HP PRN; Protocol PRN Reason: Nausea And Vomiting Ondansetron HCl (Ondansetron 4 Mg/2 Ml Vial) 4 mg IV Q4-6HP PRN; Protocol PRN Reason: Nausea And Vomiting Pantoprazole Sodium (Pantoprazole 40 Mg Tablet) [facility] Last Admin: 04/04/21 07:27 Dose: 20 mg Documented by: Polyethylene Glycol (Polyethylene Glycol 3350 17 Gm Packet) 17 gm PO DAILYP PRN PRN Reason: Constipation Potassium Chloride (Potassium Chloride 20 Meq Packet) 40 meq PO DAILYP PRN PRN Reason: K+ < 3.5 Senna/Docusate Sodium (Sennosides/Docusate Sodium 1 Tab Tablet) 1 tab PO [facility] Sodium Chloride (0.9 % Sodium Chloride 10 Ml Syringe) 10 ml IV Q8 [facility] Last Admin: 04/04/21 05:43 Dose: Not Given Documented by: A/P Narrative A/P Narrative: * Multiple rib fracture left seventh through ninth-continue multimodal pain ma nagement, to hourly incentive spirometer use, repeat chest imaging * Left humerus fracture and right patellar fracture, orthopedic consulted, nonoperative, continue pain management * Anxiety started continue alprazolam * History of CAD continue Plavix/statin/Coreg/isosorbide * DM type II continue basal prandial insulin/CC diet * GERD continue PPI * HLD continue fenofibrate/statin * Prophylaxis SCDs Plan * Repeat chest imaging * Pre-existing medical condition management as above * Continue Multimodal pain management * Orthopedics consult * PT OT nutrition support * Aggressive incentive spirometer use * Discharge planning Time Spent With Patient Time: Total time spent is greater than 50% in coordination of care (as documented) at patient's floor/unit and/or counseling patient:
--- NOTE | 2021-04-04 11:21 | XRay Report ---
HISTORY: Recent chest injury with left-sided rib fractures and fracture left shoulder FINDINGS: Acute fractures are again seen in the left humeral head and neck and the left eighth and ninth ribs. No pneumothorax or pleural effusion are present. There are are prominent increased interstitial lung markings throughout both lungs. The greatest involvement is in the right lower lobe. These have become worse since 04/03/21. There is a stable retrocardiac nodule which has been present for several years. The heart size is normal. There is no widening of the mediastinum. IMPRESSION: Stable acute left-sided rib fractures and fractured left humerus Increasing interstitial lung disease bilaterally which could be due to inflammation or edema superimposed upon underlying mild pulmonary fibrosis Interpreted and Authenticated by: Drake Campos 04/04/21
--- NOTE | 2021-04-04 11:55 | Internal Med Progress Note ---
SUBJECTIVE Subjective Patient information: Note initiated : 04/05/21 at 11:50 am Service Date, if different from initiated Date: [] Patient: Harika Palomino a 75 y/o F admitted on 04/03/21 for fall, left arm pain/swelling, right leg pain. Chief Complaint: [] Interval history: Ms. Palomino is a 75 year old F who presents to the ER after she slipped and fell 4 steps down the deck sustaining injury to her right knee, left shoulder and left chest. She was brought into the ER by EMS. Initial work-up was consistent with 7-9th left rib fracture without evidence of pneumothorax along with right basilar fracture, left humeral head fracture. Patient was started on a sling subsequently hospital service was consulted. Due to inadequate pain relief hospital service was consulted for admission. In the ED, the patient is accompanied by her Richy. She was able to answer most questions. Her pain is significantly improved on the left side following lidocaine patch/opioids. She denies precipitating events prior to fall including lightheadedness, dizziness and attributes to getting off balance. She did not lose consciousness or experienced a seizure episode. 04/04-patient currently on pain control. Orthopedic consulted. Recommends nonoperative intervention/multimodal pain management/sling. Tolerating diet. Complains of pleuritic chest pain. No family at bedside. 04/05-motivated to get out of bed, glucose running high. On 2 l/min nasal canula oxygen, chest xray shows increasing bilateral interstitial opacities-lasix IV once, continue incentive spirometer. Ongoing discharge planning, physcial therapy. Head: Atraumatic, normal inspection. Eyes: normal appearance, no scleral icterus. Neck: full ROM Respiratory: no respiratory distress. Cardiovascular: normal rate and rhythm, S1, S2. GI/Abdominal: soft, nontender, no guarding. Extremities: tender left shoulder and left sided ribs, right leg in brace. Neurological: CN II-XII intact, intact motor, intact sensation. Psychiatric: normal mood. Skin: warm, normal color Constitutional Vitals: Vital Signs Temp Pulse Resp BP Pulse Ox 98.1 F 70 20 167/60 99 04/04/21 07:15 04/04/21 07:15 04/04/21 07:15 04/04/21 07:15 04/04/21 09:28 Period Temp Pulse Resp BP Sys/Jean-Baptiste Pulse Ox Last 24 Hr 98.1 F-99.0 F 70-81 16-20 144-184/57-98 86-99 Intake and Output 04/03/21 04/04/21 04/04/21 21:59 05:59 13:59 Intake Total 0 Balance 0 Weight 48.988 kg 51.392 kg Intake & Output: Intake & Output 04/03/21 04/04/21 04/04/21 21:59 05:59 13:59 Intake Total 0 Balance 0 Weight 48.988 kg 51.392 kg Intake: Oral 0 OBJ DATA Labs CBC & Chem 7: 04/05/21 05:23 04/05/21 05:23 Labs: Abnormal Lab Results 04/04/21 04/04/21 04/03/21 05:23 05:23 19:30 WBC RBC 3.18 L Hgb 9.5 L Hct 28.6 L RDW 15.7 H MPV 11.1 H Neut % (Auto) 80.4 H Lymph % (Auto) 10.7 L Lymph # (Auto) 1.10 L [place] # (Auto) Absolute Neutrophils 8.25 H Sodium 132 L 131 L BUN 26 H Glucose 114 H 137 H Magnesium 1.1 L Direct Bilirubin 0.3 H AST 47 H 57 H Lactate Dehydrogenase 226 H Total Protein 5.8 L 04/03/21 19:30 WBC 16.2 H RBC 3.43 L Hgb 10.4 L Hct 30.2 L RDW 15.8 H MPV 11.3 H Neut % (Auto) 87.8 H Lymph % (Auto) 6.0 L Lymph # (Auto) 0.97 L [place] # (Auto) 0.95 H Absolute Neutrophils 14.23 H Sodium BUN Glucose Magnesium Direct Bilirubin AST Lactate Dehydrogenase Total Protein Meds: Medications Acetaminophen (Acetaminophen 325 Mg Tablet) 650 mg PO Q4-6HP PRN; Protocol PRN Reason: Per Pain Protocol/Fever > 101 Hydrocodone Bitart/Acetaminophen (Hydrocodone/Apap 5/325mg Tablet) 1 - 2 tab PO Q4HP PRN; Protocol PRN Reason: Per Pain Protocol Last Admin: 04/04/21 09:12 Dose: 1 tab Documented by: Alprazolam (Alprazolam 0.25 Mg Tablet) 0.25 mg PO HSP PRN PRN Reason: Restless Leg(S) Atorvastatin Calcium (Atorvastatin 40 Mg Tablet) 80 mg PO HS [facility] Bisacodyl (Bisacodyl 10 Mg Supp.Rect) 10 mg AR Q2-3DAYS PRN PRN Reason: Constipation Capsaicin (Capsaicin 0.025% Cream.Top 60gm) 1 dose TOPICAL QIDP PRN PRN Reason: Muscle Pain Carvedilol (Carvedilol 12.5 Mg Tablet) 25 mg PO DAILY [facility] Last Admin: 04/04/21 08:24 Dose: 25 mg Documented by: Clopidogrel Bisulfate (Clopidogrel 75 Mg Tablet) 75 mg PO QDAY [facility] Last Admin: 04/04/21 08:23 Dose: 75 mg Documented by: Dextrose (Dextrose 50% 50 Ml Vial) 0 ml IV UD PRN PRN Reason: Hypoglycemia Diagnostic Test (Pha) (Accu-Chek 1 Each Strip) 1 each FS ACHS [facility] Last Admin: 04/04/21 11:46 Dose: 1 each Documented by: Docusate Sodium (Docusate Sodium 100 Mg Capsule) 100 mg PO BID [facility] Last Admin: 04/04/21 08:37 Dose: Not Given Documented by: Fluoxetine HCl (Fluoxetine Hcl 20 Mg Capsule) 20 mg PO HS [facility] Furosemide (Furosemide 20 Mg Tablet) 20 mg PO QAM [facility] Last Admin: 04/04/21 08:24 Dose: 20 mg Documented by: Glucose (Dextrose 31 Gm Oral.Susp) 15 gm PO PRN PRN PRN Reason: Hypoglycemia Potassium Chloride 40 meq/ (Dextrose) 520 mls @ 130 mls/hr IV UD PRN PRN Reason: K+ = or < 3.5 Acetaminophen (Ofirmev) 650 mg in 65 mls @ 130 mls/hr IV Q6HP PRN; Protocol PRN Reason: Per Pain Protocol/Fever > 101 Magnesium Sulfate (Magnesium Sulfate) 2 gm in 50 mls @ 50 mls/hr IV UD PRN PRN Reason: MG = or < 1.7 Sodium Chloride (Sodium Chloride 0.9%) 1,000 mls @ 50 mls/hr IV .Q20H [facility] Stop: 04/06/21 11:20 Last Admin: 04/03/21 23:45 Dose: 50 mls/hr Documented by: Insulin Glargine (Insulin Glargine, Human 1 Unit/0.01 Ml) 5 unit SQ QPM [facility] Insulin Human Lispro (Insulin Lispro 1 Unit/0.01 Ml Unit) 0 unit SQ [facility]; Protocol Last Admin: 04/04/21 11:50 Dose: Not Given Documented by: Iron Carb/Multivit/Developer Evangelist/Folic Acid (Multivit,Ther Iron,Ca,Fa & Min 1 Tablet) 1 tab PO DAILY [facility] Last Admin: 04/04/21 08:23 Dose: 1 tab Documented by: Isosorbide Mononitrate (Isosorbide Mononitrate 30 Mg Tab.Xl.24h) 30 mg PO BID [facility] Last Admin: 04/04/21 08:24 Dose: 30 mg Documented by: Lidocaine (Lidocaine Patch) 1 patch TOPICAL [facility] Last Admin: 04/04/21 00:15 Dose: Not Given Documented by: Loperamide HCl (Loperamide 2 Mg Capsule) 2 mg PO PRN PRN PRN Reason: Diarrhea Melatonin (Melatonin 3 Mg Tablet) 3 mg PO HSP PRN PRN Reason: Insomnia Metoprolol Tartrate (Metoprolol Tartrate 5 Mg/5 Ml Vial) 5 mg IV Q5M PRN PRN Reason: Heart Rate > 140 bpm Nifedipine (Nifedipine 30 Mg Tab.Xl.24h) 60 mg PO BID [facility] Last Admin: 04/04/21 08:24 Dose: 60 mg Documented by: Ondansetron HCl (Ondansetron 4 Mg Odt Tablet) 4 mg SL Q4-6HP PRN; Protocol PRN Reason: Nausea And Vomiting Ondansetron HCl (Ondansetron 4 Mg/2 Ml Vial) 4 mg IV Q4-6HP PRN; Protocol PRN Reason: Nausea And Vomiting Pantoprazole Sodium (Pantoprazole 40 Mg Tablet) 20 mg PO BIDAC [facility] Last Admin: 04/04/21 07:27 Dose: 20 mg Documented by: Polyethylene Glycol (Polyethylene Glycol 3350 17 Gm Packet) 17 gm PO DAILYP PRN PRN Reason: Constipation Potassium Chloride (Potassium Chloride 20 Meq Packet) 40 meq PO DAILYP PRN PRN Reason: K+ < 3.5 Senna/Docusate Sodium (Sennosides/Docusate Sodium 1 Tab Tablet) 1 tab PO [facility] Sodium Chloride (0.9 % Sodium Chloride 10 Ml Syringe) 10 ml IV Q8 [facility] Last Admin: 04/04/21 05:43 Dose: Not Given Documented by: A/P Narrative A/P Narrative: Assessment: 75 year old female with a history of HLD, DM II, CAD, GERD, Anxiety admitted for multiple fractures-left ribs, left humerus, right patellar that occured from a fall. Orthopedic surgery consulted and recommmended conservative management. #Multiple rib fracture left seventh through ninth-continue multimodal pain management, to hourly incentive spirometer use #Left humerus fracture and right patellar fracture, orthopedic consulted, nonoperative, continue pain management #Bilateral interstitial opacities #Anxiety continue alprazolam #History of CAD continue Plavix/statin/Coreg/isosorbide #DM type II continue basal prandial insulin/CC diet #GERD continue PPI #HLD continue fenofibrate/statin #Prophylaxis SCDs Plan Lasix 20 mg IV once-follow respiratory function. Pre-existing medical condition management as above Continue Multimodal pain management Orthopedics consult PT OT nutrition support Aggressive incentive spirometer use Discharge planning Time Spent With Patient Time: Total time spent is greater than 50% in coordination of care (as documented) at patient's floor/unit and/or counseling patient:
[2021-04-04] MEDS: 0.9 % SODIUM CHLORIDE 1,000 ML IV SCH (19:40)
[2021-04-04] MEDS: ATORVASTATIN 40 MG TABLET PO SCH (20:42)
[2021-04-04] MEDS: FLUoxetine HCL 20 MG CAPSULE PO SCH (20:42)
[2021-04-04] MEDS: INSULIN GLARGINE, HUMAN 1 UNIT/0.01 ML SQ SCH (20:42)
[2021-04-04] MEDS: SENNOSIDES/DOCUSATE SODIUM 1 TAB TABLET PO SCH (20:43)
--- NOTE | 2021-04-04 21:17 | Consultation ---
DATE OF CONSULTATION: 04/04/2021 CHIEF COMPLAINT: Management of a fracture of the patient. BRIEF HISTORY: The patient presented to the emergency room with a same level fall. She tripped and fell. She had immediate pain, swelling, and deformity of the left humerus. X-rays were taken in the emergency room. She found it difficult to move the arm. She also complained of knee pain. This was pain located anterolaterally on the knee on the right side. She was in quite a bit of pain. For that reason, she has been admitted to the hospital and I was consulted. PAST MEDICAL HISTORY: She is fairly unhealthy. She notes that she is unable to have surgery because of multiple health problems and is a high risk for stroke. She does not believe and feel that she could tolerate surgery given the options that I have listed with her. Her past medical history, she is alert at present and complains no loss of consciousness during the event. She has been extensively worked up with a CT scan of the knee as well as chest x-rays, EKGs, complete blood count. X-rays of the shoulder. ALLERGIES LIST: Please see admit form. MEDICATIONS: Include, medicine for diabetes. She takes nifedipine 60 mg b.i.d., Lasix, furosemide 20 mg q.a.m. She uses Lantus for the diabetes as well, fluoxetine 20 mg p.o. at bedtime, loperamide 2 mg tablets every 6 hours p.r.n., atorvastatin 80 mg p.o. at bedtime, a multivitamin, pantoprazole 20 mg tablet delayed release, vitamin D3, iron, alprazolam 0.25 mg tablets q. day, hydrocodone 5 mg for chronic pain. PHYSICAL EXAMINATION: General: The patient is alert, cooperative. Extremities: I examined the arm. She is unable to move her shoulder but she moves her fingers without difficulty. She has normal light touch sensation. She can extend and flex her wrist and make a fist. Otherwise, she is unwilling to move the arm on the left side. Her right knee has swelling and an effusion. Tenderness is present with a small abrasion anteriorly without open wounds. Lungs: Clear to auscultation without shortness of breath. Cardiovascular: Irregular rate with no murmurs. Abdomen: Soft, nontender. Musculoskeletal: The left arm is unable to be moved as noted. Pelvis seems to be stable to compression. Both feet move up and down without difficulty with normal light touch sensation in the foot with good capillary refill. Normal dorsal pedis pulse. IMAGING: I reviewed the CT scan of the right knee as well as x-rays. This confirms right lateral avulsion fracture vertically oriented about 4.7 mm in size with a central located patella with intra-articular effusion. Imaging on the left shoulder shows a 2-part fracture, greater tuberosity displaced with a surgical neck fracture nondisplaced. Overall, alignment of the joint is excellent. The greater tuberosity displaced 5 mm, which the surgery has recommended. The bone quality is poor without tumors or lytic lesions. I also reviewed her laboratory values. PLAN: After discussing with the patient giving her the treatment options of surgery, given her multiple health problems, she has elected to not have surgery, understanding the shoulder may not be elevated above her head at times. We will re-x-ray this weekly and make sure it is not displaced. She is weightbearing as tolerated on the right lower extremity and she will be in a knee immobilizer. This will heal without event and she agrees to this. I have spoken with and reviewed the case with Dr. Vieyra, the hospitalist in charge, and expressed that she can be discharged at any time that she is mobile. RBH:deon Job ID: [id number] Doc ID: [id number] Thomas Redmond MD
[2021-04-05] MEDS: HYDROcodone/APAP 5/325MG TABLET PO PRN ×4 (02:24→20:08)
[2021-04-05] MEDS: 0.9 % SODIUM CHLORIDE 10 ML SYRINGE IV SCH ×3 (05:00→21:00)
[2021-04-05] MEDS: MAGNESIUM SULFATE 2 GM/50 ML BAG IV PRN ×2 (05:01→09:55)
[2021-04-05 07:24] LABS: Basophils # (Auto) 0.02 K/mcL (0.00-0.20); Basophils % (Auto) 0.2 % (0.0-2.0); Eosinophils # (Auto) 0.01 K/mcL (0.00-0.70); Eosinophils % (Auto) 0.1 % (0.0-7.0); Hematocrit 26.2 % (36.0-48.0); Hemoglobin 8.5 g/dL (12.0-15.0); Lymphocytes # (Auto) 0.76 K/mcL (1.50-4.80); Lymphocytes % (Auto) 7.4 % (15.0-49.0); Mean Cell Volume 90.3 fL (80.0-100.0); Mean Corpuscular HGB Conc 32.4 g/dL (31.0-36.0); Mean Platelet Volume 11.5 fL (7.4-10.4); Monocytes % (Auto) 9.8 % (1.0-12.0); Neutrophils % (Auto) 82.5 % (38.0-78.0); Platelet Count 201 K/mcL (140-440); Red Cell Distribution Width 15.3 % (11.5-14.5); WBC 10.2 K/mcL (4.5-11.0)
[2021-04-05] MEDS: INSULIN LISPRO 1 UNIT/0.01 ML UNIT SQ SCH ×4 (07:27→21:00)
[2021-04-05] MEDS: PANTOPRAZOLE 40 MG TABLET PO SCH ×2 (07:27→17:44)
[2021-04-05 08:11] LABS: ALT/SGPT 23 U/L (<40); AST/SGOT 52 U/L (<32); Albumin 2.9 gm/dL (3.2-5.2); Albumin/Globulin Ratio 1.1 (1.0-2.3); Alkaline Phosphatase 58 U/L (39-117); Bilirubin,Direct 0.5 mg/dL (<0.3); Bilirubin,Total 1.1 mg/dL (0.1-1.0); Blood Urea Nitrogen 16 mg/dL (8-23); Calcium 8.3 mg/dL (8.6-10.4); Carbon Dioxide 21 mmol/L (22-30); Chloride 100 mmol/L (96-108); Globulin 2.6 gm/dL (2.2-3.7); Glomerular Filtration Rate 85; Glucose 143 mg/dL (70-105); Lactate Dehydrogenase 263 U/L (135-225); Phosphorous 2.5 mg/dL (2.5-4.5); Triglycerides 90 mg/dL (<150); Uric Acid 4.9 mg/dL (2.5-8.0)
[2021-04-05] MEDS: DOCUSATE SODIUM 100 MG CAPSULE PO SCH ×2 (09:02→21:00)
--- NOTE | 2021-04-05 09:02 | XRay Report ---
HISTORY: Fell, rib fractures, follow-up interstitial infiltrates FINDINGS: There is moderate diffuse interstitial lung disease throughout both lung [place]. The greatest consolidation is near the right heart border. This have become worse since 04/04/21. The lung volumes are normal. There is no lobar consolidation. No pneumothorax or pleural effusion are present. The heart is mildly enlarged and has increased in size since yesterday. The left-side rib fractures are difficult to identify on today's x-ray and the fractured humerus is outside the field of view. IMPRESSION: Worsening interstitial opacities in both lungs and increasing cardiomegaly. This could be due to congestive heart failure, superimposed upon underlying pulmonary disease. Interpreted and Authenticated by: Drake Campos 04/05/21
[2021-04-05] MEDS: CLOPIDOGREL 75 MG TABLET PO SCH (09:03)
[2021-04-05] MEDS: ISOSORBIDE MONONITRATE 30 MG TAB.XL.24H PO SCH ×2 (09:03→20:07)
[2021-04-05] MEDS: FUROSEMIDE 20 MG TABLET PO SCH (09:03)
[2021-04-05] MEDS: MULTIVIT,THER IRON,CA,FA & MIN 1 TABLET PO SCH (09:03)
[2021-04-05] MEDS: CARVEDILOL 12.5 MG TABLET PO SCH (09:03)
[2021-04-05] MEDS: NIFEdipine 30 MG TAB.XL.24H PO SCH ×2 (09:03→20:07)
[2021-04-05] MEDS ORDERED: FUROSEMIDE 20 MG/2 ML VIAL IV ONE (13:42)
[2021-04-05] MEDS: 0.9 % SODIUM CHLORIDE 1,000 ML IV SCH (19:19)
[2021-04-05] MEDS: ATORVASTATIN 40 MG TABLET PO SCH (20:07)
[2021-04-05] MEDS: LIDOCAINE PATCH TOPICAL SCH (20:07)
[2021-04-05] MEDS: FLUoxetine HCL 20 MG CAPSULE PO SCH (20:07)
[2021-04-05] MEDS: INSULIN GLARGINE, HUMAN 1 UNIT/0.01 ML SQ SCH (20:33)
[2021-04-05] MEDS: SENNOSIDES/DOCUSATE SODIUM 1 TAB TABLET PO SCH (21:00)
[2021-04-05] MEDS ORDERED: CYCLOBENZAPRINE 10 MG TABLET PO PRN (21:51)
[2021-04-06] MEDS: HYDROcodone/APAP 5/325MG TABLET PO PRN ×4 (00:41→13:49)
[2021-04-06] MEDS: 0.9 % SODIUM CHLORIDE 10 ML SYRINGE IV SCH ×2 (06:09→13:32)
[2021-04-06 07:11] LABS: Basophils # (Auto) 0.01 K/mcL (0.00-0.20); Basophils % (Auto) 0.1 % (0.0-2.0); Eosinophils # (Auto) 0.02 K/mcL (0.00-0.70); Eosinophils % (Auto) 0.2 % (0.0-7.0); Hematocrit 25.6 % (36.0-48.0); Hemoglobin 8.5 g/dL (12.0-15.0); Lymphocytes # (Auto) 0.85 K/mcL (1.50-4.80); Lymphocytes % (Auto) 8.2 % (15.0-49.0); Mean Cell Volume 88.6 fL (80.0-100.0); Mean Corpuscular HGB Conc 33.2 g/dL (31.0-36.0); Mean Platelet Volume 11.4 fL (7.4-10.4); Monocytes % (Auto) 8.7 % (1.0-12.0); Neutrophils % (Auto) 82.8 % (38.0-78.0); Platelet Count 219 K/mcL (140-440); RBC 2.89 M/mcL (4.00-5.20); WBC 10.4 K/mcL (4.5-11.0)
[2021-04-06] MEDS: INSULIN LISPRO 1 UNIT/0.01 ML UNIT SQ SCH ×2 (07:32→11:22)
[2021-04-06] MEDS: PANTOPRAZOLE 40 MG TABLET PO SCH (07:34)
[2021-04-06 07:38] LABS: ALT/SGPT 24 U/L (<40); AST/SGOT 46 U/L (<32); Albumin 2.8 gm/dL (3.2-5.2); Alkaline Phosphatase 63 U/L (39-117); Bilirubin,Direct 0.4 mg/dL (<0.3); Bilirubin,Total 0.9 mg/dL (0.1-1.0); Blood Urea Nitrogen 13 mg/dL (8-23); Calcium 8.6 mg/dL (8.6-10.4); Carbon Dioxide 24 mmol/L (22-30); Chloride 101 mmol/L (96-108); Globulin 2.7 gm/dL (2.2-3.7); Glomerular Filtration Rate 85; Glucose 158 mg/dL (70-105); Lactate Dehydrogenase 283 U/L (135-225); Phosphorous 1.9 mg/dL (2.5-4.5); Triglycerides 104 mg/dL (<150)
[2021-04-06] MEDS ORDERED: KETOROLAC 15 MG/ML VIAL IV ONE (08:48)
[2021-04-06] MEDS: DOCUSATE SODIUM 100 MG CAPSULE PO SCH (09:19)
[2021-04-06] MEDS: MULTIVIT,THER IRON,CA,FA & MIN 1 TABLET PO SCH (09:19)
[2021-04-06] MEDS: ISOSORBIDE MONONITRATE 30 MG TAB.XL.24H PO SCH (09:20)
[2021-04-06] MEDS: FUROSEMIDE 20 MG TABLET PO SCH (09:21)
[2021-04-06] MEDS: CLOPIDOGREL 75 MG TABLET PO SCH (09:21)
[2021-04-06] MEDS: NIFEdipine 30 MG TAB.XL.24H PO SCH (09:22)
[2021-04-06] MEDS: CARVEDILOL 12.5 MG TABLET PO SCH (09:22)
[2021-04-06] MEDS ORDERED: NEUTRA PHOS 1 PACKET PO ONE (10:25)
--- NOTE | 2021-04-06 10:45 | Discharge Summary ---
Discharge Provider Provider Patient information: Note initiated : 04/06/21 at 10:38 am Service Date, if different from initiated Date: [] Patient: Harika Palomino 75 y/o F admitted on 04/03/21 for fall, left arm pain/swelling, right leg pain. Chief Complaint: [] Date of admission: 04/03/21 23:00 Discharge date: 04/06/21 Primary care physician: Obie Self PA-C Consults: 04/04/21 07:20 Consult to Physician [CONS] Routine Comment: Consulting Provider: Gordy Vieyra Reason For Exam: Physician to Consult 04/04/21 08:00 Consult to Physician [CONS] Routine Comment: Consulting Provider: Thomas Redmond Reason For Exam: Physician to Consult Discharge Meds Discharge Medications Home Medications pen needle, diabetic 32 gauge x 1/4" #100 each 01/07/18 [Rx Confirmed 04/03/21 Last Taken Unknown] blood sugar diagnostic #100 each 05/02/20 [Rx Confirmed 04/03/21 Last Taken Unknown] pen needle, diabetic 32 gauge x 5/16" #100 each 05/02/20 [Rx Confirmed 04/03/21 Last Taken Unknown] clopidogrel 75 mg tablet 75 mg PO QDAY 90 Days #90 tab 10/24/20 [Rx Confirmed 04/03/21 Last Taken 04/03/21 08:00] furosemide 20 mg tablet 20 mg PO QAM 90 Days #90 tab 10/24/20 [Rx Confirmed 04/03/21 Last Taken 04/03/21 08:00] nifedipine 60 mg tablet,extended release 60 mg PO BID 90 Days #180 tab 10/24/20 [Rx Confirmed 04/03/21 Last Taken 04/02/21 08:00] Lantus Solostar U-100 Insulin 100 unit/mL (3 mL) subcutaneous pen 5 unit SUB-Q QPM #15 ml NS 12/20/20 [Rx Confirmed 04/03/21 Last Taken 04/02/21 21:00] isosorbide mononitrate 30 mg tablet,extended release 24 hr 30 mg PO BID 90 Days #180 tab 01/23/21 [Rx Confirmed 04/03/21 Last Taken 04/03/21 08:00] atorvastatin 80 mg PO HS 02/28/21 [History Confirmed 04/03/21 Last Taken 04/02/21 21:00] carvedilol 25 mg PO BID 02/28/21 [History Confirmed 04/03/21 Last Taken 04/03/21 08:00] fenofibrate 160 mg PO HS 02/28/21 [History Confirmed 04/03/21 Last Taken 04/02/21 21:00] fluoxetine 20 mg PO HS 02/28/21 [History Confirmed 04/03/21 Last Taken 04/02/21 21:00] loperamide 4 - 6 mg PO QAM 02/28/21 [History Confirmed 04/03/21 Last Taken 04/03/21 08:00] multivitamin 1 tab PO QDAY #30 tab 03/02/21 [Rx Confirmed 04/03/21 Last Taken 04/03/21 08:00] pantoprazole 20 mg tablet,delayed release 20 mg PO BID 90 Days #180 tab 03/20/21 [Rx Confirmed 04/03/21 Last Taken 04/03/21 07:00] Slow Fe 142 mg PO QDAY 04/03/21 [History Confirmed 04/03/21 Last Taken 04/03/21 08:00] alprazolam 0.25 mg PO QPMP PRN 04/03/21 [History Confirmed 04/03/21 Last Taken 03/27/21 21:00] cholecalciferol (vitamin D3) 100 mcg PO QDAY 04/03/21 [History Confirmed 04/03/21 Last Taken 04/03/21 08:00] acetaminophen [Tylenol] 650 mg PO Q4-6HP PRN #30 tab 04/06/21 [Rx Last Taken Unknown] cyclobenzaprine 5 mg PO Q8HP PRN 30 Days #30 tab 04/06/21 [Rx Last Taken Unknown] hydrocodone-acetaminophen 1 - 2 tab PO Q4HP PRN #10 tab 04/06/21 [Rx Last Taken Unknown] ibuprofen 400 mg PO Q6H PRN 7 Days #30 tab 04/06/21 [Rx Last Taken Unknown] lidocaine 1 patch TOPICAL HS #30 ea 04/06/21 [Rx Last Taken Unknown] zglzbbkx-wyjt-PS-calcium-mins [Thera M Plus (ferrous fumarat)] 1 tab PO DAILY #30 tab 04/06/21 [Rx Last Taken Unknown] polyethylene glycol 3350 [Miralax] 17 g PO QDAY #30 ea 04/06/21 [Rx Last Taken Unknown] sennosides-docusate sodium [Senna Plus] 1 tab PO HS 15 Days #15 tab 04/06/21 [Rx Last Taken Unknown] COURSE Hospital Course Hospital course: Ms. Palomino is a 75 year old F who presents to the ER after she slipped and fell 4 steps down the deck sustaining injury to her right knee, left shoulder and left chest. She was brought into the ER by EMS. Initial work-up was consistent with 7-9th left rib fracture without evidence of pneumothorax along with right basilar fracture, left humeral head fracture. Patient was started on a sling subsequently hospital service was consulted. Due to inadequate pain relief hospital service was consulted for admission. In the ED, the patient is accompanied by her Richy. She was able to answer most questions. Her pain is significantly improved on the left side following lidocaine patch/opioids. She denies precipitating events prior to fall including lightheadedness, dizziness and attributes to getting off balance. She did not lose consciousness or experienced a seizure episode. 04/04-patient currently on pain control. Orthopedic consulted. Recommends non operative intervention/multimodal pain management/sling. Tolerating diet. Complains of pleuritic chest pain. No family at bedside. 04/05-motivated to get out of bed, glucose running high. On 2 l/min nasal canula oxygen, chest xray shows increasing bilateral interstitial opacities-lasix IV once, continue incentive spirometer. Ongoing discharge planning, physical therapy. 04/06-Discharged to SNF for rehab. Multimodal pain management with Tylenol, Ibuprofen, Lidocaine patch, Hydrocodone prn and bowel regimen. Weekly xrays of left humerus. Follow up with orthopedic surgery in clinic. Head: Atraumatic, normal inspection. Eyes: normal appearance, no scleral icterus. Neck: full ROM Respiratory: on nasal canula oxygen, no respiratory distress. Cardiovascular: normal rate and rhythm, systolic murmur present GI/Abdominal: soft, nontender, no guarding. Extremities: Right leg in brace, left upper extremity in sling. Neurological: CN II-XII intact, intact motor, intact sensation. Psychiatric: normal mood. Skin: bruising to left upper extremity Discharge diagnosis: Left humerus fracture, left rib fractures, right patella injury Secondary discharge diagnosis: DM II CAD GERD HLD Reason for admission: Mechanical fall resulting in Left humerus fracture, left rib fractures, rig Time Spent with Patient Time attestation: Total time spent providing and/or coordinating discharge services: EXAM Constitutional Vitals: Temp Pulse Resp BP Pulse Ox 97.5 F 78 12 138/61 94 04/06/21 04:00 04/06/21 08:00 04/06/21 08:00 04/06/21 04:00 04/06/21 08:00 Discharge Data Data Completed and Pending Labs on day of discharge: Labs from last 24 hours 04/06/21 04/06/21 05:36 05:36 WBC 10.4 RBC 2.89 L Hgb 8.5 L Hct 25.6 L MCV 88.6 MCH 29.4 MCHC 33.2 RDW 15.0 H Plt Count 219 MPV 11.4 H Neut % (Auto) 82.8 H Lymph % (Auto) 8.2 L [place] % (Auto) 8.7 Eos % (Auto) 0.2 Baso % (Auto) 0.1 Lymph # (Auto) 0.85 L [place] # (Auto) 0.90 Eos # (Auto) 0.02 Baso # (Auto) 0.01 Absolute Neutrophils 8.57 H Sodium 132 L Potassium 3.6 Chloride 101 Carbon Dioxide 24 Anion Gap 7.0 L BUN 13 Creatinine 0.7 GFR Calculation 85 Glucose 158 H Uric Acid 5.0 Calcium 8.6 Phosphorus 1.9 L Magnesium 1.7 Total Bilirubin 0.9 Direct Bilirubin 0.4 H GGT 28 AST 46 H ALT 24 Alkaline Phosphatase 63 Lactate Dehydrogenase 283 H Total Protein 5.5 L Albumin 2.8 L Globulin 2.7 Albumin/Globulin Ratio 1.0 Triglycerides 104 Discharge Plan Patient/Caregiver Discharge Instructions Activity: as per physical therapy Diet: Regular Diet Activity Restrictions/Additional Instructions: She is weightbearing as tolerated on the right lower extremity and she will be in a knee immobilizer. Prescriptions: New cyclobenzaprine 10 mg Tablet 5 mg PO Q8HP PRN (Reason: Muscle Spasm) 30 Days Qty: 30 RF: 0 acetaminophen [Tylenol] 325 mg Tablet 650 mg PO Q4-6HP PRN (Reason: Per Pain Protocol/Fever > 101) Qty: 30 RF: 0 hydrocodone-acetaminophen 5-325 mg Tablet 1 - 2 tab PO Q4HP PRN (Reason: Per Pain Protocol) Qty: 10 RF: 0 lidocaine 5 % Adhesive Patch,Medicated 1 patch topical HS Qty: 30 RF: 0 Thera M Plus (ferrous fumarat) 9 mg iron-400 mcg Tablet 1 tab PO DAILY Qty: 30 RF: 1 polyethylene glycol 3350 [Miralax] 17 gram Powder In Packet 17 g PO QDAY Qty: 30 RF: 1 sennosides-docusate sodium [Senna Plus] 8.6-50 mg Tablet 1 tab PO HS 15 Days Qty: 15 RF: 0 ibuprofen 400 mg tablet 400 mg PO Q6H PRN (Reason: pain) 7 Days Qty: 30 RF: 0 Continued (DME) pen needle, diabetic [Comfort EZ Pen [place]] 32 gauge x 1/4" needle See Dose Instructions .ROUTE .MEDSUPPLY Qty: 100 RF: 1 (DME) blood sugar diagnostic Strip See Dose Instructions .ROUTE .MEDSUPPLY Qty: 100 RF: 1 (DME) Comfort EZ Pen [place] 32 gauge x 5/16" needle See Rx Instructions .ROUTE .MEDSUPPLY Qty: 100 RF: 0 nifedipine 60 mg tablet extended release 60 mg PO BID 90 Days Qty: 180 RF: 1 furosemide 20 mg tablet 20 mg PO QAM 90 Days Qty: 90 RF: 1 clopidogrel 75 mg tablet 75 mg PO QDAY 90 Days Qty: 90 RF: 1 isosorbide mononitrate 30 mg tablet extended release 24 hr 30 mg PO BID 90 Days Qty: 180 RF: 1 pantoprazole 20 mg tablet,delayed release (DR/EC) 20 mg PO BID 90 Days Qty: 180 RF: 1 Lantus Solostar U-100 Insulin 100 unit/mL (3 mL) insulin pen 5 unit SUB-Q QPM Qty: 15 RF: 2 carvedilol 25 mg tablet 25 mg PO BID RF: 0 atorvastatin 80 mg tablet 80 mg PO HS RF: 0 fenofibrate 160 mg Tablet 160 mg PO HS RF: 0 fluoxetine 20 mg Tablet 20 mg PO HS RF: 0 loperamide 2 mg Tablet 4 - 6 mg PO QAM RF: 0 multivitamin Tablet 1 tab PO QDAY Qty: 30 RF: 3 cholecalciferol (vitamin D3) 100 mcg (4,000 unit) Capsule 100 mcg PO QDAY RF: 0 alprazolam 0.25 mg tablet 0.25 mg PO QPMP PRN (Reason: Restless Leg(S)) RF: 0 Slow Fe 142 mg (45 mg iron) Tablet Extended Release 142 mg PO QDAY RF: 0 Other Ambulatory Orders: OT Discharge Order (Routine) Location: None Selected Ordered By: Evert Rabago Physical Therapy at Discharge - General (Routine) Location: None Selected Ordered By: Evert Rabago XR shoulder comp LT min 2VW (WEEKLY) Timeframe: 20210409 Facility: [facility] - Location: Radiology Ordered By: Evert Rabago XR shoulder comp LT min 2VW (WEEKLY) Timeframe: [id number] Facility: [facility] - Location: Radiology Ordered By: Evert Rabago XR shoulder comp LT min 2VW (WEEKLY) Timeframe: [id number] Facility: [facility] - Location: Radiology Ordered By: Evert Rabago XR shoulder comp LT min 2VW (WEEKLY) Timeframe: [id number] Facility: [facility] - Location: Radiology Ordered By: Evert Rabago Follow Up Plan Follow up with: Obie Self PAArianC [Primary Care Provider] - Thomas Redmond MD [Physician] - (1 week for xray of left shoulder) Patient Disposition: Xfer SNF Prognosis: Fair Rehab Potential: Fair Overall status at discharge: patient is progressing back to baseline Discharge Orders: Discharge Order (Routine); Ordered 04/06/21 Ordered By: Evert Rabago
== END 2021-04-06 14:50 | DRG 184 ==
LOC: ED 15:36 → MEDSUR 23:00
PROVIDERS: ADMIT Internal Medicine; ATTEND Internal Medicine

== ENCOUNTER 2022-07-06 16:32 | Inpatient (IN) ==
--- NOTE | 2022-07-06 16:34 | Emergency Department Note ---
HPI General Chief complaint: Trauma Stated complaint: Fall Time Seen by Provider: 07/06/22 16:34 Source: patient Mode of arrival: EMS Limitations: no limitations History of Present Illness HPI Narrative: 76-year-old female with past medical history of hypertension, prior CVA on Plavix, and osteoarthritis presenting after a fall. Patient was at home after getting out of shower and was trying to put on a sock while standing on one leg when she fell forward and onto her left side. She did hit her head on the floor. No LOC. She is endorsing pain in her left wrist and left hip. No prodrome of dizziness, shortness of breath, or chest pain. Denies recent fever, vomiting, cough, or abdominal pain. No headache, vision changes, numbness, weakness, or paresthesias. Related Data Home Medications Medication Instructions Recorded Confirmed loperamide 2 mg tablet 4 - 6 mg PO QAM 02/28/21 03/08/22 cholecalciferol (vitamin D3) 100 100 mcg PO QDAY 04/03/21 03/08/22 mcg (4,000 unit) capsule ferrous sulfate 142 mg (45 mg 142 mg PO QDAY 04/03/21 03/08/22 iron) tablet,extended release (Slow Fe) losartan 50 mg tablet 50 mg PO BID 10/23/21 03/08/22 acetaminophen 500 mg capsule 500 mg PO Q6H PRN 10/24/21 03/08/22 insulin glargine 100 unit/mL 5 unit subcut QPM 03/08/22 03/08/22 subcutaneous solution (Lantus U-100 Insulin) Previous Rx's Medication Instructions Recorded multivitamin 1 tab PO QDAY #30 tabs 03/02/21 nifedipine 60 mg tablet,extended 60 mg PO BID 90 days #180 tabs 07/27/21 release carvedilol 25 mg tablet 25 mg PO BID 90 days #180 tabs 10/26/21 clopidogrel 75 mg tablet 75 mg PO QDAY 90 days #90 tabs 01/24/22 furosemide 20 mg tablet 20 mg PO QAM 90 days #90 tabs 01/24/22 atorvastatin 80 mg tablet 80 mg PO QDAY 90 days #90 tabs 04/24/22 fluoxetine 20 mg tablet 20 mg PO QDAY 90 days #90 tabs 04/24/22 isosorbide mononitrate 30 mg 30 mg PO BID 90 days #180 tabs 04/24/22 tablet,extended release 24 hr pantoprazole 20 mg tablet,delayed 20 mg PO BID 90 days #180 tabs 04/24/22 release alprazolam 0.25 mg tablet 0.25 mg PO QHS PRN Restless Leg(S) 04/26/22 #30 tabs fenofibrate 160 mg tablet 160 mg PO QDAY 90 days #90 tabs 04/26/22 Allergies Allergy/AdvReac Type Severity Reaction Status Date / Time acetaminophen AdvReac Intermediate Headache Verified 03/08/22 13:58 [From Lorcet (hydrocodone)] hydrocodone AdvReac Intermediate Headache Verified 03/08/22 13:58 [From Lorcet (hydrocodone)] lisinopril AdvReac Mild Cough Verified 03/08/22 13:58 NSAIDS (Non-Steroidal AdvReac Unknown GI Bleed Verified 03/08/22 13:58 Anti-Inflamma Review of Systems ROS ROS Narrative: Narrative: Constitutional: Denies fever or chills Eyes: Denies vision change ENT ED: Denies throat pain Cardiovascular: Denies chest pain Respiratory: Denies shortness of breath or cough Gastrointestinal: Denies abdominal pain, nausea, vomiting or diarrhea Genitourinary: Denies dysuria or hematuria Musculoskeletal: Denies back pain Integumentary: Denies rash Neurological: Denies headache, weakness or dizziness Psychiatric: Denies anxiety Endocrine: Denies fatigue Hematological/Lymphatic: Reports easy bruising PFSH Narrative Patient History Narrative: Narrative: Medical/Surgical/Family History All Active Problems (Updated 07/06/22 @ 17:52 by Seven Reyes MD) Fracture of left distal radius (Acute) Closed fracture of greater trochanter of left femur (Acute) History of cerebrovascular accident (Chronic) Medicare annual wellness visit, initial (Acute) Fracture of humeral head, closed (Chronic) Multiple rib fractures (Chronic) Patellar fracture (Acute) Acute GI bleeding (Acute) Irritable bowel syndrome with diarrhea (Chronic) Cystocele (Chronic) Biceps rupture, proximal (Chronic) Aortic stenosis (Chronic) S/P coronary artery stent placement (Chronic) Urinary tract infection (Acute) Gastroenteritis (Acute) Transient ischemic attack (TIA) (Chronic) S/P wrist surgery (Chronic) Fracture of wrist (Acute) Finger fracture, right (Acute) Gastrointestinal problem (Chronic) History of esophagogastroduodenoscopy (EGD) (Chronic 11/06/16) Diabetic peripheral neuropathy (Chronic) History of tonsillectomy (Chronic) History of colonoscopy (Chronic 11/06/16) History of cholecystectomy (Chronic) History of adenoidectomy (Chronic) Tricuspid valve disease (Chronic) Tobacco abuse (Chronic) Sciatica (Chronic) Restless legs (Chronic) Pseudophakia (Chronic) Postmenopausal status (age-related) (natural) (Chronic) Osteopenia (Chronic) Osteoarthrosis (Chronic) Lumbago (Chronic) group home current use of insulin (Chronic) Disorder of kidney and ureter (Chronic) Hyponatremia (Chronic) Hypertension, essential (Chronic) Hyperlipidemia (Chronic) Esophageal reflux (Chronic) Diverticulitis of colon (Chronic 11/14/12) Diabetes mellitus, type II (Chronic) Depression (Chronic) Colonic polyp (Chronic) CAD (coronary artery disease) (Chronic) Blepharitis (Chronic) Anxiety disorder (Chronic) Medical History Anxiety disorder Aortic stenosis Biceps rupture, proximal RIGHT Blepharitis (07/21/2014 Dr Chambers) CAD (coronary artery disease) Colonic polyp Cystocele Depression Diabetes mellitus, type II Disorder of kidney and ureter Diverticulitis of colon (11/14/12) Esophageal reflux Gastrointestinal problem chronic vomiting and diarrhea dating back to childhood History of cerebrovascular accident 2017. Expressive aphasia June 2021. Hyperlipidemia Hypertension, essential Hyponatremia Irritable bowel syndrome with diarrhea group home current use of insulin Lumbago Osteoarthrosis Osteopenia Postmenopausal status (age-related) (natural) Pseudophakia (07/21/2014 Dr Chambers) Restless legs Sciatica Tobacco abuse Transient ischemic attack (TIA) Tricuspid valve disease Murmur Surgical History History of adenoidectomy as a child History of cholecystectomy November 2002 Post operative pancreatitis History of colonoscopy (11/06/16) 11/14/13 Dr Saab History of esophagogastroduodenoscopy (EGD) (11/06/16) History of tonsillectomy as a child S/P coronary artery stent placement LAD May 2018 S/P wrist surgery 06/10/2017 RIGHT wrist ORIF, Dr. Pereira Family History Mother , (or cerebral aneurysm) Aortic aneurysm, Onset Age: 44 Bipolar affective disorder Migraine without aura Hypertension Rheumatic fever Secondary heart murmur Son Asthma Cardiac conduction disorder Family history of diabetes mellitus Hypertension Mitral valve stenosis Obesity Malignant Neoplasm of Thyroid Gland not specified, malignant Father Cardiac arrest, Onset Age: 51 Maternal Grandfather Nonruptured cerebral aneurysm, Onset Age: 37 ruptured, Paternal Grandfather , committed suicide Depression Sister Family history of diabetes mellitus Hypertension Obesity Sister with status post gastric bypass Sons Migraine Social History Smoking Status: Current every day smoker Alcohol Intake Frequency: does not drink Substance Use: does not use Exam Narrative Narrative: Narrative: General Limitations: no limitations General appearance: Present alert and in no apparent distress Eye Eye: Present normal appearance, PERRL and EOMI; Absent scleral icterus or conjunctival injection ENT ENT: Present mucous membranes moist Neck Neck: Present normal inspection, full ROM and trachea midline; Absent tenderness Chest Chest: Present symmetric chest wall rise Respiratory Respiratory: Present normal lung sounds bilaterally; Absent respiratory distress, rales/crackles, wheezes, stridor or accessory muscle use Cardiovascular Cardiovascular: Present regular rate, normal rhythm and systolic murmur; Absent diastolic murmur Adbominal Abdominal: Present soft; Absent distention, tenderness, guarding, rebound, rigidity or organomegaly Expanded Upper Extremity Forearm/Wrist: Present other (Tenderness to palpation and mild deformity over the distal left radius) Vascular: Normal capillary refill and radial pulse Expanded Lower Extremity Hip/Pelvis: Present other (Tenderness to palpation over the lateral left hip); Absent deformity or shortening Knee: Present normal inspection and full ROM; Absent tenderness Ankle: Present normal inspection and full ROM; Absent tenderness Neurovascular/Tendon: Present normal capillary refill; Absent pulse deficit, motor deficit or sensory deficit Back Back: Absent spinous process tenderness Neurological Neurological: Present alert, oriented X3 and CN II-XII intact; Absent motor sensory deficit Psychiatric Psychiatric: Present normal affect and normal mood Skin Skin: Present warm (WNL) and dry Course Vital Signs Vital signs: Vital Signs Temperature 97.9 F 07/06/22 16:33 Pulse Rate 83 07/06/22 16:33 Respiratory Rate 18 07/06/22 16:33 Blood Pressure 150/89 07/06/22 16:33 Pulse Oximetry (%) 98 07/06/22 16:33 Oxygen Delivery Method 07/06/22 16:33 Temperature 97.9 F 07/06/22 16:33 Pulse Rate 77 07/06/22 17:52 Respiratory Rate 18 07/06/22 16:33 Blood Pressure 150/66 07/06/22 16:53 Pulse Oximetry (%) 96 07/06/22 17:52 Oxygen Delivery Method 07/06/22 16:33 [facility] MDM Narrative Medical decision making narrative: 76-year-old female presenting after a fall. No focal neurologic deficits on exam. CT head obtained which shows no acute intracranial hemorrhage. X-ray of the left wrist shows a comminuted distal left radius fracture. Patient will be placed in a splint. X-ray of the left hip shows a nondisplaced fracture of the left greater trochanter with concern for more occult extensive fractures given this finding. CT of the hip will be obtained. Patient signed out to oncoming MD, Dr. Perea, pending CT. Radiology Data Radiology results reviewed: Yes I reviewed the patient's radiology results. Radiology results narrative: Ordering Physician:Seven Reyes M.D. Date of Service:07/06/22 Procedure(s):CT head/brain wo con INDICATION: fall, head injury COMPARISON: None. TECHNIQUE: Axial noncontrast-enhanced images through the brain. Sagittally and coronally reformatted images. FINDINGS: Cerebral hemispheres:No acute intra-axial hemorrhage. No acute abnormality. There is cerebral atrophy with prominent superficial subarachnoid spaces and ventricles. There is a 6 mm left thalamic lacunar infarction. There is a 5 mm right frontal lacunar infarction. These are nonacute. There is white matter abnormality consistent with small vessel ischemic change. This is in a periventricular distribution Brainstem and cerebellum:No intra-axial abnormality Extra-axial:No acute hemorrhage. No subdural or epidural hematoma. No subarachnoid hemorrhage. Basilar cisterns are normal Calvarial:No calvarial fracture. No lytic lesion Temporal bones are negative. No destructive lesions Soft tissue, orbits, sinuses:Orbits and visualized facial soft tissues and paranasal sinuses are negative IMPRESSION: 1. No acute intracranial hemorrhage. No acute abnormality 2. Cerebral atrophy, white matter abnormality, nonacute lacunar infarctions The exam was performed using radiation dose optimization techniques including, but not limited to, automated exposure control, adjustment of the mA and/or kV according to patient size and use of iterative reconstruction technique. Interpreted and Authenticated by: Christofer Ravi 07/06/22 14 14 Forensic Identification Specialist: <Electronically signed by Christofer Ravi M.D. in OV> 07/06/221717 Ordering Physician:Seven Reyes M.D. Date of Service:07/06/22 Procedure(s):XR wrist LT complete 3vw INDICATION: fall, L wrist pain TECHNIQUE: PA, oblique, lateral left wrist COMPARISON: None. FINDINGS: Extra-articular distal left radial fracture consistent with Colles' fracture. There is impaction and mild dorsal angulation deformity. Severe degenerative joint disease at the triscaphe joint and first carpometacarpal joint. Probable osteopenia. There is vascular calcification. IMPRESSION: 1. Extra articular distal left radial fracture with impaction and mild dorsal angulation 2. Degenerative joint disease Interpreted and Authenticated by: Christofer Ravi 07/06/22 17 17 Forensic Identification Specialist: <Electronically signed by Christofer Ravi M.D. in OV> 07/06/221718 Ordering Physician:Seven Reyes M.D. Date of Service:07/06/22 Procedure(s):XR hip LT comp 2VW INDICATION: fall, L hip pain TECHNIQUE: AP pelvis. Crosstable lateral left hip COMPARISON: None. FINDINGS: There is a fracture of the left greater trochanter. Greater trochanteric fractures are known to be associated with occult more extensive fractures. CT or MRI scan is typically recommended for further evaluation. No other acute abnormality identified. Pelvis and sacrum are negative. Right hip is negative. Incidental note is made of extensive vascular calcification IMPRESSION: Nondisplaced fracture of the left greater trochanter. Interpreted and Authenticated by: Christofer Ravi 07/06/22 Discharge Plan Patient/Caregiver Discharge Instructions Pt seen by BULK PIGMENT REDUCER/PA only: No Clinical Impression: Fracture of left distal radius, Closed fracture of greater trochanter of left femur Patient Disposition: Still a Patient Condition: Fair Follow up with: Obie Self, MAURAC [Primary Care Provider] - Prescriptions: No Action nifedipine 60 mg tablet extended release 60 mg PO BID 90 Days Qty: 180 1RF carvedilol 25 mg tablet 25 mg PO BID 90 Days Qty: 180 1RF Rx Instructions: must administer with a meal/food clopidogrel 75 mg tablet 75 mg PO QDAY 90 Days Qty: 90 1RF furosemide 20 mg tablet 20 mg PO QAM 90 Days Qty: 90 1RF Lantus U-100 Insulin 100 unit/mL solution 5 unit subcut QPM pantoprazole 20 mg tablet,delayed release (DR/EC) 20 mg PO BID 90 Days Qty: 180 1RF isosorbide mononitrate 30 mg tablet extended release 24 hr 30 mg PO BID 90 Days Qty: 180 1RF fluoxetine 20 mg tablet 20 mg PO QDAY 90 Days Qty: 90 1RF atorvastatin 80 mg tablet 80 mg PO QDAY 90 Days Qty: 90 1RF alprazolam 0.25 mg tablet 0.25 mg PO QHS PRN (Reason: Restless Leg(S)) Qty: 30 0RF fenofibrate 160 mg tablet 160 mg PO QDAY 90 Days Qty: 90 1RF losartan 50 mg tablet 50 mg PO BID acetaminophen 500 mg capsule 500 mg PO Q6H PRN loperamide 2 mg Tablet 4 - 6 mg PO QAM Rx Instructions: Up to 8 tablets a day multivitamin Tablet 1 tab PO QDAY Qty: 30 3RF cholecalciferol (vitamin D3) 100 mcg (4,000 unit) Capsule 100 mcg PO QDAY Slow Fe 142 mg (45 mg iron) Tablet Extended Release 142 mg PO QDAY
--- NOTE | 2022-07-06 17:21 | Cat Scan Report ---
INDICATION: fall, head injury COMPARISON: None. TECHNIQUE: Axial noncontrast-enhanced images through the brain. Sagittally and coronally reformatted images. FINDINGS: Cerebral hemispheres:No acute intra-axial hemorrhage. No acute abnormality. There is cerebral atrophy with prominent superficial subarachnoid spaces and ventricles. There is a 6 mm left thalamic lacunar infarction. There is a 5 mm right frontal lacunar infarction. These are nonacute. There is white matter abnormality consistent with small vessel ischemic change. This is in a periventricular distribution Brainstem and cerebellum:No intra-axial abnormality Extra-axial:No acute hemorrhage. No subdural or epidural hematoma. No subarachnoid hemorrhage. Basilar cisterns are normal Calvarial:No calvarial fracture. No lytic lesion Temporal bones are negative. No destructive lesions Soft tissue, orbits, sinuses:Orbits and visualized facial soft tissues and paranasal sinuses are negative IMPRESSION: 1. No acute intracranial hemorrhage. No acute abnormality 2. Cerebral atrophy, white matter abnormality, nonacute lacunar infarctions The exam was performed using radiation dose optimization techniques including, but not limited to, automated exposure control, adjustment of the mA and/or kV according to patient size and use of iterative reconstruction technique. Interpreted and Authenticated by: Christofer Ravi 07/06/22
--- NOTE | 2022-07-06 17:23 | XRay Report ---
INDICATION: fall, L wrist pain TECHNIQUE: PA, oblique, lateral left wrist COMPARISON: None. FINDINGS: Extra-articular distal left radial fracture consistent with Colles' fracture. There is impaction and mild dorsal angulation deformity. Severe degenerative joint disease at the triscaphe joint and first carpometacarpal joint. Probable osteopenia. There is vascular calcification. IMPRESSION: 1. Extra articular distal left radial fracture with impaction and mild dorsal angulation 2. Degenerative joint disease Interpreted and Authenticated by: Christofer Ravi 07/06/22
--- NOTE | 2022-07-06 17:26 | XRay Report ---
INDICATION: fall, L hip pain TECHNIQUE: AP pelvis. Crosstable lateral left hip COMPARISON: None. FINDINGS: There is a fracture of the left greater trochanter. Greater trochanteric fractures are known to be associated with occult more extensive fractures. CT or MRI scan is typically recommended for further evaluation. No other acute abnormality identified. Pelvis and sacrum are negative. Right hip is negative. Incidental note is made of extensive vascular calcification IMPRESSION: Nondisplaced fracture of the left greater trochanter. Interpreted and Authenticated by: Christofer Ravi 07/06/22
[2022-07-06] MEDS ORDERED: morphine 2 MG/ML VIAL IV ONE (17:58)
--- NOTE | 2022-07-06 18:51 | Cat Scan Report ---
INDICATION: L greater trochanter fracture TECHNIQUE: Axial images through the pelvis. Sagittal and coronal reformatted images COMPARISON: Plain film examination dated 07/06/2022 FINDINGS: Fracture of the left greater trochanter. There is cephalad displacement. No associated fractures identified. There is no intratrochanteric or subtrochanteric fracture. Left femoral neck and head are intact without fracture. No acute pelvic fracture. Sacrum and sacroiliac joints are negative. There is severe degenerative facet arthropathy at L5-S1. Incidental note is made of atherosclerotic calcification. No abdominal aortic aneurysm. IMPRESSION: 1. Displaced intertrochanteric fracture 2. Radiographically occult associated fracture. Interpreted and Authenticated by: Christofer Ravi 07/06/22
[2022-07-06 20:28] LABS: Basophils # (Auto) 0.02 K/mcL (0.00-0.30); Basophils % (Auto) 0.2 % (0.0-2.0); Eosinophils # (Auto) 0.02 K/mcL (0.00-0.70); Eosinophils % (Auto) 0.2 % (0.0-7.0); Hematocrit 30.6 % (34.1-44.9); Lymphocytes # (Auto) 0.91 K/mcL (1.50-4.80); Lymphocytes % (Auto) 8.4 % (15.5-49.0); Mean Cell Volume 86.7 fL (80.0-100.0); Mean Corpuscular HGB Conc 35.9 g/dL (31.0-36.0); Mean Platelet Volume 11.9 fL (7.4-10.4); Monocytes # (Auto) 0.71 K/mcL (0.10-0.90); Monocytes % (Auto) 6.6 % (1.0-12.0); Neutrophils % (Auto) 84.1 % (38.0-78.0); Platelet Count 208 K/mcL (140-440); RBC 3.53 M/mcL (3.59-5.38); Red Cell Distribution Width 15.9 % (11.5-14.5); WBC 10.8 K/mcL (4.5-11.0)
[2022-07-06 20:35] LABS: INR 1.2 (0.9-1.1); Prothrombin Time 15.4 sec (11.9-14.5)
--- NOTE | 2022-07-06 20:46 | Emergency Department Note ---
Course Course Course Narrative: I assumed care of patient at 1700 pending imaging results. Patient has a left wrist fracture that is currently splinted. CT of the pelvis obtained with images myself which shows a left intertrochanteric displaced fracture. Case was discussed with on-call orthopedic surgeon, Dr. Louis, who recommends the patient be admitted to hospitalist service due to her comorbid conditions to include hypertension, hyperlipidemia, coronary artery disease and diabetes. Case was discussed with on-call hospitalist, Dr. Gonzalez, who was agreed to admit the patient. Chest x-ray obtained with image reviewed myself no acute cardiopulmonary findings. EKG was unremarkable. Plan was discussed with patient and her and both expressed verbal understanding and agreement of plan. Reevaluation(s) Reevaluation #1: Patient remains hemodynamic stable. No new complaints at this time. Time: 17:10 Vital Signs Vital signs: Vital Signs Temperature 97.9 F 07/06/22 16:33 Pulse Rate 83 07/06/22 16:33 Respiratory Rate 18 07/06/22 16:33 Blood Pressure 150/89 07/06/22 16:33 Pulse Oximetry (%) 98 07/06/22 16:33 Oxygen Delivery Method 07/06/22 16:33 Temperature 97.9 F 07/06/22 16:33 Pulse Rate 73 07/06/22 20:31 Respiratory Rate 18 07/06/22 16:33 Blood Pressure 152/82 07/06/22 20:31 Pulse Oximetry (%) 92 07/06/22 20:31 Oxygen Delivery Method 07/06/22 16:[address] [facility] MDM Narrative Medical decision making narrative: Narrative: Differential Diagnosis Differential Diagnosis: Hip fracture, wrist fracture Medical Records Medical records reviewed: Yes I reviewed the patient's medical records. Lab Data Lab results reviewed: Yes I reviewed the patient's lab results. Result diagrams: 07/06/22 19:40 07/06/22 19:40 Labs: Lab Results 07/06/22 07/06/22 Range/Units 19:40 19:40 WBC 10.8 (4.5-11.0) K/mcL RBC 3.53 L (3.59-5.38) M/mcL Hgb 11.0 L (11.2-15.7) g/dL Hct 30.6 L (34.1-44.9) % MCV 86.7 (80.0-100.0) fL MCH 31.2 (26.0-34.0) pg MCHC 35.9 (31.0-36.0) g/dL RDW 15.9 H (11.5-14.5) % Plt Count 208 (140-440) K/mcL MPV 11.9 H (7.4-10.4) fL Immature Gran % (Auto) 0.5 (0.0-0.5) % Neut % (Auto) 84.1 H (38.0-78.0) % Lymph % (Auto) 8.4 L (15.5-49.0) % [place] % (Auto) 6.6 (1.0-12.0) % Eos % (Auto) 0.2 (0.0-7.0) % Baso % (Auto) 0.2 (0.0-2.0) % Lymph # (Auto) 0.91 L (1.50-4.80) K/mcL [place] # (Auto) 0.71 (0.10-0.90) K/mcL Eos # (Auto) 0.02 (0.00-0.70) K/mcL Baso # (Auto) 0.02 (0.00-0.30) K/mcL Immature Gran # 0.05 (0.00-0.05) K/mcl Absolute Neutrophils 9.10 H (1.80-8.00) K/mcL PT 15.4 H (11.9-14.5) sec INR 1.2 H (0.9-1.1) Radiology Data Radiology results reviewed: Yes I reviewed the patient's radiology results. Radiology results narrative: CT of the pelvis obtained with image reviewed myself, agree with radiologist rotation X-ray of the left wrist obtained with image reviewed myself, agree with radiologist to rotation EKG Data EKG #1: EKG attestation: Yes I reviewed and interpreted this EKG. EKG shows normal: sinus rhythm Rate: bradycardia (53) Rhythm: NSR and other [place]/QRS: RBBB and LAHB/LAFB Heart block present: None ST segment elevation in: None ST segment depression in: None QTc: normal QRS morphology: Present normal Interpretation: no acute changes Core Measures AMI Core Measures Followed: Yes Discharge Plan Patient/Caregiver Discharge Instructions Pt seen by STATISTICAL METHODS PROFESSOR/PA only: No Clinical Impression: Fracture of left distal radius, Closed intertrochanteric fracture, Fall Patient Disposition: Xfer As Outpt/Obs ([facility]) Condition: Fair Follow up with: Obie Self PA-C [Primary Care Provider] - Prescriptions: No Action nifedipine 60 mg tablet extended release 60 mg PO BID 90 Days Qty: 180 1RF carvedilol 25 mg tablet 25 mg PO BID 90 Days Qty: 180 1RF Rx Instructions: must administer with a meal/food clopidogrel 75 mg tablet 75 mg PO QDAY 90 Days Qty: 90 1RF Lantus U-100 Insulin 100 unit/mL solution 6 unit subcut QPM pantoprazole 20 mg tablet,delayed release (DR/EC) 20 mg PO BID 90 Days Qty: 180 1RF fluoxetine 20 mg tablet 20 mg PO QDAY 90 Days Qty: 90 1RF atorvastatin 80 mg tablet 80 mg PO QDAY 90 Days Qty: 90 1RF alprazolam 0.25 mg tablet 0.25 mg PO QHS PRN (Reason: Restless Leg(S)) Qty: 30 0RF fenofibrate 160 mg tablet 160 mg PO QDAY 90 Days Qty: 90 1RF losartan 50 mg tablet 50 mg PO BID acetaminophen 500 mg capsule 500 mg PO Q6H PRN (Reason: Pain) multivitamin Tablet 1 tab PO QDAY Qty: 30 3RF cholecalciferol (vitamin D3) 100 mcg (4,000 unit) Capsule 100 mcg PO QDAY isosorbide mononitrate 30 mg tablet extended release 24 hr 30 mg PO DAILY furosemide 20 mg tablet 40 mg PO QAM
--- NOTE | 2022-07-06 20:49 | Internal Med History&Physical ---
HPI History of Present Illness Patient information: Note initiated : 07/06/22 at 8:43 pm Service Date, if different from initiated Date: [] Patient: Harika Palomino a 76 y/o F admitted on for Fall. Chief Complaint: [] History of present illness: Ms. Palomino is a 76 year old F With left hip pain and wrist pain or falling. She had gotten out of the shower and was getting on her socks when she lost her balance and fell onto her left side. She has a history of stroke with residual mild left hemiparesis. No other new complaints other than her hip and wrist pain. She has chronic headaches and diarrhea. Work-up in the ED revealed left hip fracture and left wrist fracture. Dr. Louis was contacted. Review of Systems: Pertinent positives as above. denies fever/chills/nausea/vomiting/chest or abdominal pain/cough/dyspnea. Remaining 10 point review of system reviewed negative. PFSH PFSH All Active Problems (Updated 07/06/22 @ 20:51 by Angus Perea DO) Fracture of left distal radius (Acute) Closed intertrochanteric fracture (Acute) Fall (Acute) History of cerebrovascular accident (Chronic) Medicare annual wellness visit, initial (Acute) Fracture of humeral head, closed (Chronic) Multiple rib fractures (Chronic) Patellar fracture (Acute) Acute GI bleeding (Acute) Irritable bowel syndrome with diarrhea (Chronic) Cystocele (Chronic) Biceps rupture, proximal (Chronic) Aortic stenosis (Chronic) S/P coronary artery stent placement (Chronic) Urinary tract infection (Acute) Gastroenteritis (Acute) Transient ischemic attack (TIA) (Chronic) S/P wrist surgery (Chronic) Fracture of wrist (Acute) Finger fracture, right (Acute) Gastrointestinal problem (Chronic) History of esophagogastroduodenoscopy (EGD) (Chronic 11/06/16) Diabetic peripheral neuropathy (Chronic) History of tonsillectomy (Chronic) History of colonoscopy (Chronic 11/06/16) History of cholecystectomy (Chronic) History of adenoidectomy (Chronic) Tricuspid valve disease (Chronic) Tobacco abuse (Chronic) Sciatica (Chronic) Restless legs (Chronic) Pseudophakia (Chronic) Postmenopausal status (age-related) (natural) (Chronic) Osteopenia (Chronic) Osteoarthrosis (Chronic) Lumbago (Chronic) [facility] current use of insulin (Chronic) Disorder of kidney and ureter (Chronic) Hyponatremia (Chronic) Hypertension, essential (Chronic) Hyperlipidemia (Chronic) Esophageal reflux (Chronic) Diverticulitis of colon (Chronic 11/14/12) Diabetes mellitus, type II (Chronic) Depression (Chronic) Colonic polyp (Chronic) CAD (coronary artery disease) (Chronic) Blepharitis (Chronic) Anxiety disorder (Chronic) Medical History Anxiety disorder Aortic stenosis Biceps rupture, proximal RIGHT Blepharitis (07/21/2014 Dr Chambers) CAD (coronary artery disease) Colonic polyp Cystocele Depression Diabetes mellitus, type II Disorder of kidney and ureter Diverticulitis of colon (11/14/12) Esophageal reflux Gastrointestinal problem chronic vomiting and diarrhea dating back to childhood History of cerebrovascular accident 2017. Expressive aphasia June 2021. Hyperlipidemia Hypertension, essential Hyponatremia Irritable bowel syndrome with diarrhea [facility] current use of insulin Lumbago Osteoarthrosis Osteopenia Postmenopausal status (age-related) (natural) Pseudophakia (07/21/2014 Dr Chambers) Restless legs Sciatica Tobacco abuse Transient ischemic attack (TIA) Tricuspid valve disease Murmur Surgical History History of adenoidectomy as a child History of cholecystectomy November 2002 Post operative pancreatitis History of colonoscopy (11/06/16) 11/14/13 Dr Saab History of esophagogastroduodenoscopy (EGD) (11/06/16) History of tonsillectomy as a child S/P coronary artery stent placement LAD May 2018 S/P wrist surgery 06/10/2017 RIGHT wrist ORIF, Dr. Pereira Family History Mother , (or cerebral aneurysm) Aortic aneurysm, Onset Age: 44 Bipolar affective disorder Migraine without aura Hypertension Rheumatic fever Secondary heart murmur Son Asthma Cardiac conduction disorder Family history of diabetes mellitus Hypertension Mitral valve stenosis Obesity Malignant Neoplasm of Thyroid Gland not specified, malignant Father Cardiac arrest, Onset Age: 51 Maternal Grandfather Nonruptured cerebral aneurysm, Onset Age: 37 ruptured, Paternal Grandfather , committed suicide Depression Sister Family history of diabetes mellitus Hypertension Obesity Sister with status post gastric bypass Sons Migraine Social History household members: spouse housing: house lives independently: Yes marital status: education level: college service: No occupational status: retired 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 eating out: rarely or never physical activity: other details: maintaining the home smoking status: Current every day smoker tobacco type: cigarettes per day: 2 alcohol intake frequency: does not drink substance use type: does not use delilah/restorationist: Zoroastrianism seatbelt use: always MEDS/ALLERGIES Home Medications and Allergies Home Medications Medication Instructions Recorded Confirmed Type multivitamin 1 tab PO QDAY #30 tabs 03/02/21 07/06/22 Rx cholecalciferol (vitamin D3) 100 100 mcg PO QDAY 04/03/21 07/06/22 History mcg (4,000 unit) capsule nifedipine 60 mg tablet,extended 60 mg PO BID 90 days #180 tabs 07/27/21 07/06/22 Rx release losartan 50 mg tablet 50 mg PO BID 10/23/21 07/06/22 History acetaminophen 500 mg capsule 500 mg PO Q6H PRN Pain 10/24/21 07/06/22 History carvedilol 25 mg tablet 25 mg PO BID 90 days #180 tabs 10/26/21 07/06/22 Rx clopidogrel 75 mg tablet 75 mg PO QDAY 90 days #90 tabs 01/24/22 07/06/22 Rx insulin glargine 100 unit/mL 6 unit subcut QPM 03/08/22 07/06/22 History subcutaneous solution (Lantus U-100 Insulin) atorvastatin 80 mg tablet 80 mg PO QDAY 90 days #90 tabs 04/24/22 07/06/22 Rx fluoxetine 20 mg tablet 20 mg PO QDAY 90 days #90 tabs 04/24/22 07/06/22 Rx pantoprazole 20 mg tablet,delayed 20 mg PO BID 90 days #180 tabs 04/24/22 07/06/22 Rx release alprazolam 0.25 mg tablet 0.25 mg PO QHS PRN Restless Leg(S) 04/26/22 07/06/22 Rx #30 tabs fenofibrate 160 mg tablet 160 mg PO QDAY 90 days #90 tabs 04/26/22 07/06/22 Rx furosemide 20 mg tablet 40 mg PO QAM 07/06/22 07/06/22 History isosorbide mononitrate 30 mg 30 mg PO DAILY 07/06/22 07/06/22 History tablet,extended release 24 hr Allergies Allergy/AdvReac Type Severity Reaction Status Date / Time acetaminophen AdvReac Intermediate Headache Verified 03/08/22 13:58 [From Lorcet (hydrocodone)] hydrocodone AdvReac Intermediate Headache Verified 03/08/22 13:58 [From Lorcet (hydrocodone)] lisinopril AdvReac Mild Cough Verified 03/08/22 13:58 NSAIDS (Non-Steroidal AdvReac Unknown GI Bleed Verified 03/08/22 13:58 Anti-Inflamma EXAM Constitutional Vitals: Temp Pulse Resp BP Pulse Ox O2 Del Method 97.9 F 73 18 152/82 92 07/06/22 16:33 07/06/22 20:31 07/06/22 16:33 07/06/22 20:31 07/06/22 20:31 07/06/22 16:33 Exam: General: Alert, Awake, No acute Distress Eyes/N/T: EOMI, PERRL, Head/Neck: neck supple, normocephalic atraumatic CV: RRR, 2-3/6 SM, normal s1/s2 Pulm: Clear b/l, no wheezing/rhonchi/rales Abd: soft, nontender, +BS x4 Ext: no clubbing/cyanosis, 2-3+ b/l LE edema. Left wrist in splint Neuro: Alert, no focal deficits, moves all extremities, CN 2-12 grossly intact, Skin: warm/dry DATA Data Completed and Pending Labs: Labs from last 24 hours 07/06/22 07/06/22 07/06/22 19:40 19:40 19:40 WBC 10.8 RBC 3.53 L Hgb 11.0 L Hct 30.6 L MCV 86.7 MCH 31.2 MCHC 35.9 RDW 15.9 H Plt Count 208 MPV 11.9 H Immature Gran % (Auto) 0.5 Neut % (Auto) 84.1 H Lymph % (Auto) 8.4 L [place] % (Auto) 6.6 Eos % (Auto) 0.2 Baso % (Auto) 0.2 Lymph # (Auto) 0.91 L [place] # (Auto) 0.71 Eos # (Auto) 0.02 Baso # (Auto) 0.02 Immature Gran # 0.05 Absolute Neutrophils 9.10 H PT 15.4 H INR 1.2 H Sodium Pending Potassium Pending Chloride Pending Carbon Dioxide Pending Anion Gap Pending BUN Pending Creatinine Pending GFR Calculation Pending Glucose Pending Calcium Pending Total Bilirubin Pending AST Pending ALT Pending Alkaline Phosphatase Pending Total Protein Pending Albumin Pending Globulin Pending Albumin/Globulin Ratio Pending A/P Narrative A/P Narrative: A: *Left hip/wrist fracture: * *h/o CVA w/residual mild Left Hemiparesis: *CAD w/stent: *peripheral edema: on lasix *DM: *HTN/HLD: *Depression/anxiety: *GERD: *CKD II: *Anemia, chronic: *Hyponatremia: *Tobacco abuse: P: -Dr. Louis for Ortho -Plavix held for surgery -pain control -Continue home BB/ARB/Imdur, lasix -Basal and SSI -Smoking cessation counseling >3 minutes -PT/OT -CM for placement -ppx: SCD and postop per Ortho /home PPI DNR Time Spent With Patient Time: Total time spent is greater than 50% in coordination of care (as documented) at patient's floor/unit and/or counseling patient:
[2022-07-06 20:50] LABS: ALT/SGPT 41 U/L (<40); AST/SGOT 67 U/L (<32); Albumin 3.4 gm/dL (3.2-5.2); Albumin/Globulin Ratio 1.3 (1.0-2.3); Alkaline Phosphatase 62 U/L (39-117); Bilirubin,Total 0.8 mg/dL (0.1-1.0); Blood Urea Nitrogen 30 mg/dL (8-23); Calcium 8.9 mg/dL (8.6-10.4); Carbon Dioxide 23 mmol/L (22-30); Chloride 97 mmol/L (96-108); Globulin 2.7 gm/dL (2.2-3.7); Glomerular Filtration Rate 62; Glucose 134 mg/dL (70-105)
[2022-07-06] MEDS ORDERED: ACETAMINOPHEN 325 MG TABLET PO PRN (22:08)
[2022-07-06] MEDS ORDERED: MAGNESIUM SULFATE 2 GM/50 ML BAG IV PRN (22:08)
[2022-07-06] MEDS ORDERED: PANTOPRAZOLE 20 MG PO SCH (22:08)
[2022-07-06] MEDS ORDERED: POTASSIUM CHLORIDE 40 MEQ in DEXTROSE 5% IN WATER 500 ML IV PRN (22:08)
[2022-07-06] MEDS ORDERED: DEXTROSE 31 GM ORAL.SUSP PO PRN (22:08)
[2022-07-06] MEDS ORDERED: IPRATROPIUM/ALBUTEROL 3 ML AMPUL.NEB NEB PRN (22:08)
[2022-07-06] MEDS ORDERED: ONDANSETRON 4 MG/2 ML VIAL IV PRN (22:08)
[2022-07-06] MEDS ORDERED: POTASSIUM CHLORIDE 20 MEQ TABLET PO PRN ×2 (22:08)
[2022-07-06] MEDS ORDERED: LABETALOL 5 MG/ML ML IV PRN (22:08)
[2022-07-06] MEDS ORDERED: NON FORMULARY MEDICATION 1 DOSE MISCELL (Carvedilol 25 mg tablet) PO SCH (22:08)
[2022-07-06] MEDS ORDERED: DEXTROSE 50% 50 ML VIAL IV PRN (22:08)
[2022-07-06] MEDS ORDERED: HYDROcodone/APAP 5/325MG TABLET PO PRN (22:08)
[2022-07-06] MEDS ORDERED: [UNRECOGNIZED DRUG - OTHER] PO SCH (22:08)
[2022-07-06] MEDS ORDERED: POLYETHYLENE GLYCOL 3350 17 GM PACKET PO PRN (22:08)
[2022-07-06] MEDS ORDERED: SENNOSIDES 1 TABLET PO PRN (22:08)
[2022-07-06] MEDS ORDERED: ALPRAZolam 0.25 MG TABLET PO PRN (22:08)
[2022-07-06] MEDS: 0.9 % SODIUM CHLORIDE 10 ML SYRINGE IV SCH (22:15)
[2022-07-06] MEDS: morphine 4 MG/ML VIAL IV PRN (22:15)
[2022-07-06] MEDS: INSULIN LISPRO 1 UNIT/0.01 ML UNIT SQ SCH (22:19)
[2022-07-06] MEDS ORDERED: ONDANSETRON 4 MG/2 ML VIAL ONE (22:20)
[2022-07-06] MEDS ORDERED: morphine 4 MG/ML VIAL ONE (22:20)
[2022-07-06] MEDS ORDERED: PANTOPRAZOLE 40 MG TABLET ONE (22:51)
[2022-07-06] MEDS ORDERED: CARVEDILOL 6.25 MG TABLET ONE (22:52)
[2022-07-06] MEDS: LOSARTAN 50 MG TABLET PO SCH (23:06)
[2022-07-06] MEDS: INSULIN GLARGINE, HUMAN 1 UNIT/0.01 ML SQ SCH (23:07)
[2022-07-06] MEDS ORDERED: INSULIN GLARGINE, HUMAN 1 UNIT/0.01 ML SQ ONE (23:12)
[2022-07-07] MEDS ORDERED: METOCLOPRAMIDE 10 MG/2 ML VIAL ONE (01:07)
[2022-07-07] MEDS: morphine 4 MG/ML VIAL IV PRN ×2 (03:59→09:05)
[2022-07-07] MEDS ORDERED: morphine 2 MG/ML VIAL ONE (04:05)
[2022-07-07] MEDS: 0.9 % SODIUM CHLORIDE 10 ML SYRINGE IV SCH ×3 (06:35→20:22)
--- NOTE | 2022-07-07 06:42 | XRay Report ---
INDICATION: Pre OP TECHNIQUE: AP portable supine chest x-ray COMPARISON: None FINDINGS: Lungs:Lungs are negative. No focal pulmonary parenchymal infiltrate or mass Heart, vascular:No significant cardiomegaly. Pulmonary vascularity is normal. No pulmonary edema or pulmonary congestion Mediastinum, hari:No mediastinal widening. No hilar mass Pleura:No pleural fluid. No pleural-based mass or calcification Skeletal:Negative. IMPRESSION: No acute abnormality Interpreted and Authenticated by: Christofer Ravi 07/07/22
[2022-07-07 06:48] LABS: Basophils # (Auto) 0.03 K/mcL (0.00-0.30); Basophils % (Auto) 0.3 % (0.0-2.0); Eosinophils # (Auto) 0.02 K/mcL (0.00-0.70); Eosinophils % (Auto) 0.2 % (0.0-7.0); Hematocrit 30.1 % (34.1-44.9); Hemoglobin 10.7 g/dL (11.2-15.7); Lymphocytes # (Auto) 0.87 K/mcL (1.50-4.80); Lymphocytes % (Auto) 9.4 % (15.5-49.0); Mean Cell Volume 90.1 fL (80.0-100.0); Mean Corpuscular HGB Conc 35.5 g/dL (31.0-36.0); Mean Platelet Volume 11.5 fL (7.4-10.4); Monocytes # (Auto) 0.83 K/mcL (0.10-0.90); Monocytes % (Auto) 8.9 % (1.0-12.0); Neutrophils % (Auto) 80.8 % (38.0-78.0); Platelet Count 188 K/mcL (140-440); RBC 3.34 M/mcL (3.59-5.38); Red Cell Distribution Width 16.3 % (11.5-14.5); WBC 9.3 K/mcL (4.5-11.0)
[2022-07-07 07:28] LABS: ALT/SGPT 38 U/L (<40); AST/SGOT 65 U/L (<32); Albumin 2.9 gm/dL (3.2-5.2); Alkaline Phosphatase 56 U/L (39-117); Bilirubin,Direct 0.6 mg/dL (<0.3); Bilirubin,Total 1.1 mg/dL (0.1-1.0); Blood Urea Nitrogen 30 mg/dL (8-23); Calcium 8.8 mg/dL (8.6-10.4); Carbon Dioxide 23 mmol/L (22-30); Chloride 99 mmol/L (96-108); Globulin 2.9 gm/dL (2.2-3.7); Glomerular Filtration Rate 72; Glucose 110 mg/dL (70-105); Lactate Dehydrogenase 217 U/L (135-225); Phosphorous 2.9 mg/dL (2.5-4.5); Triglycerides 102 mg/dL (<150); Uric Acid 5.6 mg/dL (2.5-8.0)
--- NOTE | 2022-07-07 07:33 | Orthopedic Progress Note ---
SUBJECTIVE Subjective Patient information: Note initiated : 07/07/22 at 7:30 am Service Date, if different from initiated Date: [] Patient: Harika Palomino 76 y/o F admitted on 07/06/22 for Fall. Chief Complaint: [Left wrist and greater troch fx] Constitutional Vitals: Vital Signs Temp Pulse Resp BP Pulse Ox O2 Del Method O2 Flow Rate 97.8 F 73 18 144/57 94 1 07/07/22 04:00 07/07/22 04:00 07/07/22 04:00 07/07/22 04:00 07/07/22 04:00 07/07/22 04:00 07/07/22 04:00 Period Temp Pulse Resp BP Sys/Jean-Baptiste Pulse Ox O2 Del Method O2 Flow Rate Last 24 Hr 97.8 F-98.7 F 73-83 18-20 142-179/52-89 92-98 Nasal Cannula- Room Air 1 Intake and Output 07/06/22 07/07/22 07/07/22 21:59 05:59 13:59 Output Total 550 Balance -550 Weight 112 lb Intake & Output: Intake & Output 07/06/22 07/07/22 07/07/22 21:59 05:59 13:59 Output Total 550 Balance -550 Weight 112 lb Output: Urine Catheter Amount 550 Other: Urine Appearance Uretheral (Tello) Clear Clear Urine Color Uretheral (Tello) Yellow Yellow Extremities Exam Extremities exam: Present normal capillary refill, normal inspection, tenderness, Foot pink and warm and neurovascular intact OBJ DATA Labs CBC & Chem 7: 07/07/22 05:48 07/07/22 05:48 Labs: Abnormal Lab Results 07/07/22 07/07/22 07/06/22 05:48 05:48 19:40 RBC 3.34 L Hgb 10.7 L Hct 30.1 L RDW 16.3 H MPV 11.5 H Neut % (Auto) 80.8 H Lymph % (Auto) 9.4 L Lymph # (Auto) 0.87 L Absolute Neutrophils PT INR Sodium 131 L BUN 30 H 30 H Glucose 110 H 134 H Magnesium 1.1 L Total Bilirubin 1.1 H Direct Bilirubin 0.6 H AST 65 H 67 H ALT 41 H Total Protein 5.8 L Albumin 2.9 L 07/06/22 07/06/22 19:40 19:40 RBC 3.53 L Hgb 11.0 L Hct 30.6 L RDW 15.9 H MPV 11.9 H Neut % (Auto) 84.1 H Lymph % (Auto) 8.4 L Lymph # (Auto) 0.91 L Absolute Neutrophils 9.10 H PT 15.4 H INR 1.2 H Sodium BUN Glucose Magnesium Total Bilirubin Direct Bilirubin AST ALT Total Protein Albumin Meds: Medications Acetaminophen (Acetaminophen 325 Mg Tablet) 650 mg PO Q6HP PRN; Protocol PRN Reason: Per Pain Protocol/Fever > 101 Hydrocodone Bitart/Acetaminophen (Hydrocodone/Apap 5/325mg Tablet) 1 tab PO Q4HP PRN PRN Reason: PAIN LEVEL 3-6 Albuterol/Ipratropium (Ipratropium/Albuterol 3 Ml Ampul.Neb) 3 ml NEB Q4HP PRN PRN Reason: Shortness Of Breath Alprazolam (Alprazolam 0.25 Mg Tablet) 0.25 mg PO QHS PRN PRN Reason: Restless Leg(S) Dextrose (Dextrose 50% 50 Ml Vial) 0 ml IV UD PRN PRN Reason: Per Sliding Scale Diagnostic Test (Pha) (Accu-Chek 1 Each Strip) 1 each FS ACHS [facility] Last Admin: 07/06/22 22:19 Dose: 1 each Furosemide (Furosemide 20 Mg Tablet) 40 mg PO QAM [facility] Glucose (Dextrose 31 Gm Oral.Susp) 15 gm PO PRN PRN PRN Reason: Hypoglycemia Potassium Chloride 40 meq/ (Dextrose) 520 mls @ 130 mls/hr IV UD PRN PRN Reason: Potassium < 3 Magnesium Sulfate (Magnesium Sulfate) 2 gm in 50 mls @ 50 mls/hr IV UD PRN PRN Reason: Magnesium </= 1.6 Insulin Glargine (Insulin Glargine, Human 1 Unit/0.01 Ml) 6 unit SQ QPM [facility] Last Admin: 07/06/22 23:07 Dose: 6 unit Insulin Human Lispro (Insulin Lispro 1 Unit/0.01 Ml Unit) 0 unit SQ ACHS [facility]; Protocol Last Admin: 07/06/22 22:19 Dose: Not Given Isosorbide Mononitrate (Isosorbide Mononitrate 30 Mg Tab.Xl.24h) 30 mg PO DAILY [facility] Labetalol HCl (Labetalol 5 Mg/Ml Ml) 0 mg IV Q2HP PRN PRN Reason: Hypertension Losartan Potassium (Losartan 50 Mg Tablet) 50 mg PO BID [facility] Last Admin: 07/06/22 23:06 Dose: 50 mg Morphine Sulfate (Morphine 4 Mg/Ml Vial) 0 mg IV Q3HP PRN PRN Reason: Pain Last Admin: 07/07/22 03:59 Dose: 2 mg Non-Formulary Medication (Carvedilol) 25 mg PO BID [facility] Last Admin: 07/06/22 23:07 Dose: Not Given Non-Formulary Medication (Atorvastatin) 80 mg PO QDAY [facility] Non-Formulary Medication (Fluoxetine) 20 mg PO QDAY [facility] Non-Formulary Medication (Pantoprazole) 20 mg PO BID [facility] Last Admin: 07/06/22 23:07 Dose: Not Given Ondansetron HCl (Ondansetron 4 Mg/2 Ml Vial) 4 mg IV Q4HP PRN PRN Reason: Nausea And Vomiting Polyethylene Glycol (Polyethylene Glycol 3350 17 Gm Packet) 17 gm PO DAILYP PRN PRN Reason: Constipation Potassium Chloride (Potassium Chloride 20 Meq Tablet) 40 meq PO UD PRN PRN Reason: Potssium is 3-3.5 Potassium Chloride (Potassium Chloride 20 Meq Tablet) 40 meq PO UD PRN PRN Reason: Potassium < 3 Senna (Sennosides 1 Tablet) 2 tab PO DAILYP PRN PRN Reason: Constipation Sodium Chloride (0.9 % Sodium Chloride 10 Ml Syringe) 10 ml IV Q8 [facility] Last Admin: 07/07/22 06:35 Dose: 10 ml A/P Narrative A/P Narrative: Ortho consult dictated--reccomendations to treat non-operatively. RTC 7-10 days at [facility] for proper casting of Colles Fx. NWB for hip fx and recommend Platform walker. Discharge to home when cleared by hospitalist. We'll Rx Oxycodone for pain/ Time Spent With Patient Time: Total time spent is greater than 50% in coordination of care (as documented) at patient's floor/unit and/or counseling patient: Total time spent with greater than 50% in coordination of care (as documented) at patient's floor/unit and/or counseling patient:: less than 15 minutes Critical Care Time: Yes
[2022-07-07] MEDS: INSULIN LISPRO 1 UNIT/0.01 ML UNIT SQ SCH ×4 (07:38→20:23)
[2022-07-07] MEDS ORDERED: MAGNESIUM SULFATE 24.36 MEQ in DEXTROSE 5% IN WATER 50 ML IV ONE (07:52)
--- NOTE | 2022-07-07 07:53 | Internal Med Progress Note ---
SUBJECTIVE Subjective Patient information: Note initiated : 07/07/22 at 7:46 am Service Date, if different from initiated Date: [] Patient: Harika Palomino a 76 y/o F admitted on 07/06/22 for Fall. Chief Complaint: [] Interval history: History of present illness: Ms. Palomino is a 76 year old F With left hip pain and wrist pain or falling. She had gotten out of the shower and was getting on her socks when she lost her balance and fell onto her left side. She has a history of stroke with residual mild left hemiparesis. No other new complaints other than her hip and wrist pain. She has chronic headaches and diarrhea. Work-up in the ED revealed left hip fracture and left wrist fracture. Dr. Louis was contacted. 07/07 Seen by orthopedics and felt conservative treatment. Pain relatively controlled. No other new complaints. Sodium within normal limits. Mag significantly low, need to replete. Review of Systems: denies headache/fever/chills/nausea/vomiting/chest or abdominal pain/cough/dyspnea/diarrhea. Otherwise see above. Constitutional Vitals: Vital Signs Temp Pulse Resp BP Pulse Ox O2 Del Method O2 Flow Rate 98.0 F 70 18 140/65 96 1 07/07/22 07:39 07/07/22 07:39 07/07/22 07:39 07/07/22 07:39 07/07/22 07:39 07/07/22 07:39 07/07/22 07:39 Period Temp Pulse Resp BP Sys/Jean-Baptiste Pulse Ox O2 Del Method O2 Flow Rate Last 24 Hr 97.8 F-98.7 F 70-83 18-20 140-179/52-89 92-98 Nasal Cannula- Room Air 1-1 Intake and Output 07/06/22 07/07/22 07/07/22 21:59 05:59 13:59 Output Total 550 Balance -550 Weight 50.802 kg Intake & Output: Intake & Output 07/06/22 07/07/22 07/07/22 21:59 05:59 13:59 Output Total 550 Balance -550 Weight 50.802 kg Output: Urine Catheter Amount 550 Other: Urine Appearance Uretheral (Tello) Clear Clear Urine Color Uretheral (Tello) Yellow Yellow Exam: General: Alert, Awake, No acute Distress Eyes/N/T: EOMI, , Head/Neck: neck supple, CV: RRR, 2-3/6 SM, Pulm: Clear b/l, no wheezing/rhonchi/rales Abd: soft, nontender, +BS x4 Ext: no clubbing/cyanosis, 2-3+ b/l LE edema. Left wrist in splint Neuro: Alert, no focal deficits, moves all extremities, Skin: warm/dry OBJ DATA Labs CBC & Chem 7: 07/07/22 05:48 07/07/22 05:48 Labs: Abnormal Lab Results 07/07/22 07/07/22 07/06/22 05:48 05:48 19:40 RBC 3.34 L Hgb 10.7 L Hct 30.1 L RDW 16.3 H MPV 11.5 H Neut % (Auto) 80.8 H Lymph % (Auto) 9.4 L Lymph # (Auto) 0.87 L Absolute Neutrophils PT INR Sodium 131 L BUN 30 H 30 H Glucose 110 H 134 H Magnesium 1.1 L Total Bilirubin 1.1 H Direct Bilirubin 0.6 H AST 65 H 67 H ALT 41 H Total Protein 5.8 L Albumin 2.9 L 07/06/22 07/06/22 19:40 19:40 RBC 3.53 L Hgb 11.0 L Hct 30.6 L RDW 15.9 H MPV 11.9 H Neut % (Auto) 84.1 H Lymph % (Auto) 8.4 L Lymph # (Auto) 0.91 L Absolute Neutrophils 9.10 H PT 15.4 H INR 1.2 H Sodium BUN Glucose Magnesium Total Bilirubin Direct Bilirubin AST ALT Total Protein Albumin Meds: Medications Acetaminophen (Acetaminophen 325 Mg Tablet) 650 mg PO Q6HP PRN; Protocol PRN Reason: Per Pain Protocol/Fever > 101 Hydrocodone Bitart/Acetaminophen (Hydrocodone/Apap 5/325mg Tablet) 1 tab PO Q4HP PRN PRN Reason: PAIN LEVEL 3-6 Albuterol/Ipratropium (Ipratropium/Albuterol 3 Ml Ampul.Neb) 3 ml NEB Q4HP PRN PRN Reason: Shortness Of Breath Alprazolam (Alprazolam 0.25 Mg Tablet) 0.25 mg PO QHS PRN PRN Reason: Restless Leg(S) Dextrose (Dextrose 50% 50 Ml Vial) 0 ml IV UD PRN PRN Reason: Per Sliding Scale Diagnostic Test (Pha) (Accu-Chek 1 Each Strip) 1 each FS ACHS [facility] Last Admin: 07/07/22 07:37 Dose: 1 each Furosemide (Furosemide 20 Mg Tablet) 40 mg PO QAM [facility] Glucose (Dextrose 31 Gm Oral.Susp) 15 gm PO PRN PRN PRN Reason: Hypoglycemia Potassium Chloride 40 meq/ (Dextrose) 520 mls @ 130 mls/hr IV UD PRN PRN Reason: Potassium < 3 Magnesium Sulfate (Magnesium Sulfate) 2 gm in 50 mls @ 50 mls/hr IV UD PRN PRN Reason: Magnesium </= 1.6 Insulin Glargine (Insulin Glargine, Human 1 Unit/0.01 Ml) 6 unit SQ QPM [facility] Last Admin: 07/06/22 23:07 Dose: 6 unit Insulin Human Lispro (Insulin Lispro 1 Unit/0.01 Ml Unit) 0 unit SQ ACHS [facility]; Protocol Last Admin: 07/07/22 07:38 Dose: Not Given Isosorbide Mononitrate (Isosorbide Mononitrate 30 Mg Tab.Xl.24h) 30 mg PO DAILY [facility] Labetalol HCl (Labetalol 5 Mg/Ml Ml) 0 mg IV Q2HP PRN PRN Reason: Hypertension Losartan Potassium (Losartan 50 Mg Tablet) 50 mg PO BID [facility] Last Admin: 07/06/22 23:06 Dose: 50 mg Morphine Sulfate (Morphine 4 Mg/Ml Vial) 0 mg IV Q3HP PRN PRN Reason: Pain Last Admin: 07/07/22 03:59 Dose: 2 mg Non-Formulary Medication (Carvedilol) 25 mg PO BID [facility] Last Admin: 07/06/22 23:07 Dose: Not Given Non-Formulary Medication (Atorvastatin) 80 mg PO QDAY [facility] Non-Formulary Medication (Fluoxetine) 20 mg PO QDAY [facility] Non-Formulary Medication (Pantoprazole) 20 mg PO BID [facility] Last Admin: 07/06/22 23:07 Dose: Not Given Ondansetron HCl (Ondansetron 4 Mg/2 Ml Vial) 4 mg IV Q4HP PRN PRN Reason: Nausea And Vomiting Polyethylene Glycol (Polyethylene Glycol 3350 17 Gm Packet) 17 gm PO DAILYP PRN PRN Reason: Constipation Potassium Chloride (Potassium Chloride 20 Meq Tablet) 40 meq PO UD PRN PRN Reason: Potssium is 3-3.5 Potassium Chloride (Potassium Chloride 20 Meq Tablet) 40 meq PO UD PRN PRN Reason: Potassium < 3 Senna (Sennosides 1 Tablet) 2 tab PO DAILYP PRN PRN Reason: Constipation Sodium Chloride (0.9 % Sodium Chloride 10 Ml Syringe) 10 ml IV Q8 [facility] Last Admin: 07/07/22 06:35 Dose: 10 ml A/P Narrative A/P Narrative: A: *Left hip/wrist fracture: -treating conservatively by ortho *h/o CVA w/residual mild Left Hemiparesis: *CAD w/stent: *peripheral edema: on lasix *DM: *HTN/HLD: *Depression/anxiety: *GERD: *CKD II: *Anemia, chronic: *Hyponatremia: improved *Hypomagnesemia: *Tobacco abuse: P: -Dr. Louis for Ortho, f/u outpt -pain control -Electrolyte replacement -Continue home BB/ARB/Imdur, lasix, plavix -Basal and SSI -Smoking cessation counseling -PT/OT -CM for placement -ppx: lovenox /home PPI DNR Time Spent With Patient Time: Total time spent is greater than 50% in coordination of care (as documented) at patient's floor/unit and/or counseling patient: Total time spent with greater than 50% in coordination of care (as documented) at patient's floor/unit and/or counseling patient:: 25 - 35 minutes QUALITY VTE Deep Vein Thrombosis/Pulmonary Embolism Present on Admission: No
--- NOTE | 2022-07-07 09:07 | Consultation ---
DATE OF CONSULTATION: 07/07/2022 CHIEF COMPLAINT: History of fall resulting in left hip and left wrist injury. HISTORY OF PRESENT ILLNESS: The patient is a pleasant 76-year-old female. She was just getting out of the shower and getting dressed when she lost her balance and fell onto her left side. The patient sustained an injury to her left hip and wrist and so much so that she was unable to get up off of the floor. Her called EMS. She was then transported to the Emergency Department for further evaluation. 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 Upon arrival to the Emergency Department, radiographs demonstrated a left distal radial Colles fracture that was slightly impacted. Hip radiographs also demonstrated concerns for a trochanteric fracture and a CT scan was obtained that also demonstrated a displaced greater trochanteric fracture without involvement of the intertrochanteric region or femoral neck. No other fractures, tumors or lytic changes were seen. PAST MEDICAL HISTORY: Including anxiety, aortic stenosis, polyps, depression, diabetes, kidney and ureter disease, diverticulitis of the colon, GERD, hyperlipidemia, hyponatremia, IBS, osteopenia, osteoarthritis, sciatica, tobacco use, history of TIA and CVA. PAST SURGICAL HISTORY: ____, cholecystectomy. She had postoperative pancreatitis, history of colonoscopy, history of tonsillectomy as a child, coronary artery stent placement and a prior right wrist surgery in 2017. FAMILY HISTORY: Mother of a CVA, had also history of aortic aneurysm, bipolar, migraine, hypertension, rheumatic fever and secondary heart murmur. Son with asthma, cardiac conduction disorder, obesity, and mitral valve stenosis as well as hypertension. Father, cardiac arrest. SOCIAL HISTORY: She lives with her spouse. 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 She does smoke daily about 2 cigarettes a day. She does not use alcohol. MEDICATIONS: The patient's current medication list includes, 1. Vitamin D3. 2. Nifedipine 60 mg extended release tablet b.i.d. 3. Losartan 50 mg b.i.d. 4. Tylenol 500 mg as needed. 5. Carvedilol 25 mg b.i.d. 6. Plavix 75 mg daily. 7. Insulin 6 units at night. 8. Atorvastatin 80 mg daily. 9. Fluoxetine 20 mg a day. 10. Pantoprazole 20 mg b.i.d. 11. Alprazolam as needed for restless legs. 12. Fenofibrate 160 mg tablets daily. 13. Furosemide 20 mg in the mornings. 14. Isosorbide mononitrate 30 mg daily. ALLERGIES: SHE HAS KNOWN DRUG ALLERGIES TO HYDROCODONE, LISINOPRIL AND SOME NSAIDS. Current vital signs include a blood pressure of 144/57, pulse 73, respirations 18, temperature 97.8, pulse ox 94% on 1 liter nasal cannula. LABORATORY DATA: The patient's CBC demonstrates a hematocrit of 30.1, hemoglobin of 10.7, platelets normal 188, PT of 15.4, INR 1.2. IMAGING REVIEW: Plain view radiographs of the left wrist demonstrate an impacted distal radial Colles fracture with slight loss of normal volar tilt. The distal radial joint is out to length beyond the ulnar joint. CT scan and plain view radiographs of the left hip also reviewed by myself and Dr. Louis demonstrate a displaced greater trochanteric fracture, not involving the intertrochanteric or subtrochanteric region nor the femoral neck and otherwise well aligned other than the displacement. PHYSICAL EXAMINATION: GENERAL: This is a pleasant female appears to be in no apparent distress currently, lying in the hospital bed. The patient is awake, alert and oriented x3. HEENT: Head is otherwise normocephalic. CHEST: Clear to auscultation. No wheezing, rhonchi, rales. HEART: Normal sinus rhythm. No audible murmurs, gallops or rubs. ABDOMEN: The patient's belly was soft and nontender. EXTREMITIES: The left wrist was previously splinted in a sugar-tong splint. The patient had grossly intact intrinsic function of the left hand in terms of her digit motion. Brisk capillary refill. Hand was pink and warm. The patient had ability to flex and extend the elbow. She demonstrated no pain in the shoulder. The left lower extremity demonstrated a point of maximal tenderness over the greater trochanter. She did have pain with most active range of motion attempts with internal and external rotation, hip flexion and extension. She had intact dorsiflexion, plantar flexion, EHL motion and was grossly intact from a neurosensory exam otherwise distally. MEDICAL DECISION MAKING: Dr. Louis reviewed the case with me of this patient and imaging jointly. Based on the patient's activity level, demand and desires, we felt that both of her injuries could be treated nonoperatively based on some of the other health issues that this patient has including history of CVA, some heart disease with coronary artery disease, hypertension, and being a diabetic all put her at higher risk for intraoperative complications. The patient understands the risk of further displacement of the fracture as well as the duration of healing, likely to include 6 to 12 weeks of healing with nonweightbearing status for 3-4 weeks at minimum. This will pose a challenge to the patient for getting around and ambulating. She states her is able and apt to assist her in transferring to a wheelchair. They live on a single-level home without stairs and she felt very confident that she could return home once cleared by hospitalist. ASSESSMENT: 1. Status post fall with an acute complicated left wrist injury resulting in a distal radial impacted Colles fracture with slight loss of normal volar tilt. 2. Acute complicated left hip injury with a displaced greater trochanteric fracture without involvement of the intertrochanteric subtrochanteric or femoral neck. TREATMENT PLAN: Orthopedics recommended treating these fractures nonoperatively. We need to see this patient in the next 7-10 days back in the office for proper casting of the distal radial Colles fracture and repeat radiographs of the greater trochanter to ensure that it is staying in acceptable alignment and she has been compliant with our treatment recommendations. There certainly is a potential for surgical intervention should any further displacement or the patient just cannot tolerate the pain in terms of the hip fracture and/or wrist injury. The patient is cleared for home discharge when cleared by hospitalist, who admitted this patient and we will see her back in our clinic. BAP:lisa Job ID: [id number] Doc ID: [id number] JEROME Locke MD
[2022-07-07] MEDS: CARVEDILOL 12.5 MG TABLET PO SCH ×2 (09:08→17:47)
[2022-07-07] MEDS: NIFEdipine 30 MG TAB.XL.24H PO SCH ×2 (09:08→20:17)
[2022-07-07] MEDS: ISOSORBIDE MONONITRATE 30 MG TAB.XL.24H PO SCH (09:08)
[2022-07-07] MEDS: ATORVASTATIN 40 MG TABLET PO SCH (09:09)
[2022-07-07] MEDS: ENOXAPARIN 40 MG/0.4 ML SYRINGE SQ SCH (09:09)
[2022-07-07] MEDS: CLOPIDOGREL 75 MG TABLET PO SCH (09:09)
[2022-07-07] MEDS: FUROSEMIDE 20 MG TABLET PO SCH (09:09)
[2022-07-07] MEDS: FLUoxetine HCL 20 MG CAPSULE PO SCH (09:09)
[2022-07-07] MEDS: PANTOPRAZOLE 40 MG TABLET PO SCH (17:52)
[2022-07-07] MEDS: INSULIN GLARGINE, HUMAN 1 UNIT/0.01 ML SQ SCH (20:21)
[2022-07-07] MEDS: LOSARTAN 50 MG TABLET PO SCH (20:32)
[2022-07-07] MEDS ORDERED: LOSARTAN 50 MG TABLET PO SCH (21:00)
[2022-07-08] MEDS: morphine 4 MG/ML VIAL IV PRN (00:17)
[2022-07-08] MEDS: oxyCODONE HCL 5 MG TABLET PO PRN ×4 (01:18→20:03)
[2022-07-08] MEDS: 0.9 % SODIUM CHLORIDE 10 ML SYRINGE IV SCH ×3 (05:57→20:05)
[2022-07-08 06:44] LABS: ALT/SGPT 33 U/L (<40); AST/SGOT 57 U/L (<32); Albumin 2.8 gm/dL (3.2-5.2); Alkaline Phosphatase 53 U/L (39-117); Bilirubin,Direct 0.9 mg/dL (<0.3); Bilirubin,Total 1.4 mg/dL (0.1-1.0); Blood Urea Nitrogen 29 mg/dL (8-23); Calcium 8.5 mg/dL (8.6-10.4); Carbon Dioxide 24 mmol/L (22-30); Chloride 94 mmol/L (96-108); Globulin 2.7 gm/dL (2.2-3.7); Glomerular Filtration Rate 62; Glucose 95 mg/dL (70-105); Lactate Dehydrogenase 195 U/L (135-225); Phosphorous 3.1 mg/dL (2.5-4.5); Triglycerides 103 mg/dL (<150); Uric Acid 6.3 mg/dL (2.5-8.0)
--- NOTE | 2022-07-08 07:44 | Internal Med Progress Note ---
SUBJECTIVE Subjective Patient information: Note initiated : 07/08/22 at 7:40 am Service Date, if different from initiated Date: [] Patient: Harika Palomino a 76 y/o F admitted on 07/06/22 for Fall. Chief Complaint: [] Interval history: History of present illness: Ms. Palomino is a 76 year old F With left hip pain and wrist pain or falling. She had gotten out of the shower and was getting on her socks when she lost her balance and fell onto her left side. She has a history of stroke with residual mild left hemiparesis. No other new complaints other than her hip and wrist pain. She has chronic headaches and diarrhea. Work-up in the ED revealed left hip fracture and left wrist fracture. Dr. Louis was contacted. 07/07 Seen by orthopedics and felt conservative treatment. Pain relatively controlled. No other new complaints. Sodium within normal limits. Mag significantly low, need to replete. 07/08 States she slept well. Pain relatively controlled and no new complaints. Mild hyponatremia. Magnesium within normal limits. Case management for placement. Review of Systems: denies headache/fever/chills/nausea/vomiting/chest or abdominal pain/cough/dyspnea/diarrhea. Otherwise see above. Constitutional Vitals: Vital Signs Temp Pulse Resp BP Pulse Ox O2 Del Method O2 Flow Rate 97.9 F 62 16 120/58 98 1 07/08/22 04:04 07/08/22 04:04 07/08/22 04:04 07/08/22 04:04 07/08/22 04:04 07/08/22 04:04 07/08/22 04:04 Period Temp Pulse Resp BP Sys/Jean-Baptiste Pulse Ox O2 Del Method O2 Flow Rate Last 24 Hr 97.9 F-98.6 F 61-70 91-125/44-73 91-98 Nasal Cannula- Nasal Cannula 1-3 Intake and Output 07/07/22 07/08/22 07/08/22 21:59 05:59 13:59 Intake Total 400 Output Total 450 425 Balance -450 -25 Intake & Output: Intake & Output 07/07/22 07/08/22 07/08/22 21:59 05:59 13:59 Intake Total 400 Output Total 450 425 Balance -450 -25 Intake: Oral 400 Output: Urine Catheter Amount 425 Void Amount 450 Other: Urine Appearance Clear Clear Uretheral (Tello) Clear Urine Color Dark Jocy Light Jocy Uretheral (Tello) Dark Jocy Exam: General: Alert, Awake, No acute Distress Eyes/N/T: EOMI, , Head/Neck: neck supple, CV: RRR, 2-3/6 SM, Pulm: Clear b/l, no wheezing/rhonchi/rales Abd: soft, nontender, +BS x4 Ext: no clubbing/cyanosis, much improved b/l LE edema. Left wrist in splint Neuro: Alert, no focal deficits, moves all extremities, Skin: warm/dry OBJ DATA Labs CBC & Chem 7: 07/07/22 05:48 07/08/22 05:35 Labs: Abnormal Lab Results 07/08/22 07/07/22 07/07/22 05:35 05:48 05:48 RBC 3.34 L Hgb 10.7 L Hct 30.1 L RDW 16.3 H MPV 11.5 H Neut % (Auto) 80.8 H Lymph % (Auto) 9.4 L Lymph # (Auto) 0.87 L Absolute Neutrophils PT INR Sodium 130 L Chloride 94 L BUN 29 H 30 H Glucose 110 H Calcium 8.5 L Magnesium 1.1 L Total Bilirubin 1.4 H 1.1 H Direct Bilirubin 0.9 H 0.6 H AST 57 H 65 H ALT Total Protein 5.5 L 5.8 L Albumin 2.8 L 2.9 L 07/06/22 07/06/22 07/06/22 19:40 19:40 19:40 RBC 3.53 L Hgb 11.0 L Hct 30.6 L RDW 15.9 H MPV 11.9 H Neut % (Auto) 84.1 H Lymph % (Auto) 8.4 L Lymph # (Auto) 0.91 L Absolute Neutrophils 9.10 H PT 15.4 H INR 1.2 H Sodium 131 L Chloride BUN 30 H Glucose 134 H Calcium Magnesium Total Bilirubin Direct Bilirubin AST 67 H ALT 41 H Total Protein Albumin Meds: Medications Acetaminophen (Acetaminophen 325 Mg Tablet) 650 mg PO Q6HP PRN; Protocol PRN Reason: Per Pain Protocol/Fever > 101 Hydrocodone Bitart/Acetaminophen (Hydrocodone/Apap 5/325mg Tablet) 1 tab PO Q4HP PRN PRN Reason: PAIN LEVEL 3-6 Albuterol/Ipratropium (Ipratropium/Albuterol 3 Ml Ampul.Neb) 3 ml NEB Q4HP PRN PRN Reason: Shortness Of Breath Alprazolam (Alprazolam 0.25 Mg Tablet) 0.25 mg PO QHS PRN PRN Reason: Restless Leg(S) Atorvastatin Calcium (Atorvastatin 40 Mg Tablet) 80 mg PO QDAY [facility] Last Admin: 07/07/22 09:09 Dose: 80 mg Carvedilol (Carvedilol 12.5 Mg Tablet) 25 mg PO BIDCC [facility] Last Admin: 07/07/22 17:47 Dose: Not Given Clopidogrel Bisulfate (Clopidogrel 75 Mg Tablet) 75 mg PO QDAY [facility] Last Admin: 07/07/22 09:09 Dose: 75 mg Dextrose (Dextrose 50% 50 Ml Vial) 0 ml IV UD PRN PRN Reason: Per Sliding Scale Diagnostic Test (Pha) (Accu-Chek 1 Each Strip) 1 each FS ACHS [facility] Last Admin: 07/07/22 20:21 Dose: 1 each Enoxaparin Sodium (Enoxaparin 40 Mg/0.4 Ml Syringe) 40 mg SQ DAILY [facility] Last Admin: 07/07/22 09:09 Dose: 40 mg Fluoxetine HCl (Fluoxetine Hcl 20 Mg Capsule) 20 mg PO DAILY [facility] Last Admin: 07/07/22 09:09 Dose: 20 mg Furosemide (Furosemide 20 Mg Tablet) 40 mg PO QAM [facility] Last Admin: 07/07/22 09:09 Dose: 40 mg Glucose (Dextrose 31 Gm Oral.Susp) 15 gm PO PRN PRN PRN Reason: Hypoglycemia Potassium Chloride 40 meq/ (Dextrose) 520 mls @ 130 mls/hr IV UD PRN PRN Reason: Potassium < 3 Magnesium Sulfate (Magnesium Sulfate) 2 gm in 50 mls @ 50 mls/hr IV UD PRN PRN Reason: Magnesium </= 1.6 Insulin Glargine (Insulin Glargine, Human 1 Unit/0.01 Ml) 6 unit SQ QPM [facility] Last Admin: 07/07/22 20:21 Dose: 6 unit Insulin Human Lispro (Insulin Lispro 1 Unit/0.01 Ml Unit) 0 unit SQ ACHS [facility]; Protocol Last Admin: 07/07/22 20:23 Dose: Not Given Isosorbide Mononitrate (Isosorbide Mononitrate 30 Mg Tab.Xl.24h) 30 mg PO DAILY [facility] Last Admin: 07/07/22 09:08 Dose: 30 mg Labetalol HCl (Labetalol 5 Mg/Ml Ml) 0 mg IV Q2HP PRN PRN Reason: Hypertension Losartan Potassium (Losartan 50 Mg Tablet) 50 mg PO HS [facility] Last Admin: 07/07/22 20:17 Dose: Not Given Morphine Sulfate (Morphine 4 Mg/Ml Vial) 0 mg IV Q3HP PRN PRN Reason: Pain Last Admin: 07/08/22 00:17 Dose: 1 mg Nifedipine (Nifedipine 30 Mg Tab.Xl.24h) 60 mg PO BID [facility] Last Admin: 07/07/22 20:17 Dose: Not Given Ondansetron HCl (Ondansetron 4 Mg/2 Ml Vial) 4 mg IV Q4HP PRN PRN Reason: Nausea And Vomiting Oxycodone HCl (Oxycodone Hcl 5 Mg Tablet) 5 mg PO Q4-6HP PRN; Protocol PRN Reason: Per Pain Protocol Last Admin: 07/08/22 05:57 Dose: 5 mg Pantoprazole Sodium ([facility]antoprazole 40 Mg Tablet) [facility] Last Admin: 07/07/22 17:52 Dose: 40 mg Polyethylene Glycol (Polyethylene Glycol 3350 17 Gm Packet) 17 gm PO DAILYP PRN PRN Reason: Constipation Potassium Chloride (Potassium Chloride 20 Meq Tablet) 40 meq PO UD PRN PRN Reason: Potssium is 3-3.5 Potassium Chloride (Potassium Chloride 20 Meq Tablet) 40 meq PO UD PRN PRN Reason: Potassium < 3 Senna (Sennosides 1 Tablet) 2 tab PO DAILYP PRN PRN Reason: Constipation Sodium Chloride (0.9 % Sodium Chloride 10 Ml Syringe) 10 ml IV Q8 [facility] Last Admin: 07/08/22 05:57 Dose: 10 ml A/P Narrative A/P Narrative: A: *Left hip greater troch fx & wrist fx: -treating conservatively by ortho *h/o CVA w/residual mild Left Hemiparesis: *CAD w/stent: *peripheral edema: on lasix *DM: *HTN/HLD: on nifedipine/coreg/losartan, also on imdur for cardiac *Depression/anxiety: *GERD: *CKD II: *Anemia, chronic: *Hyponatremia: improved *Hypomagnesemia: *Tobacco abuse: P: -Dr. Louis for Ortho, f/u outpt -pain control -Electrolyte replacement -decrease BP meds for low BP, cont Imdur, lasix, plavix -Basal and SSI -Smoking cessation counseling -PT/OT -CM for placement -ppx: lovenox /home PPI DNR Time Spent With Patient Time: Total time spent is greater than 50% in coordination of care (as documented) at patient's floor/unit and/or counseling patient: QUALITY VTE Deep Vein Thrombosis/Pulmonary Embolism Present on Admission: No
[2022-07-08] MEDS: INSULIN LISPRO 1 UNIT/0.01 ML UNIT SQ SCH ×4 (08:05→20:04)
[2022-07-08] MEDS: ENOXAPARIN 40 MG/0.4 ML SYRINGE SQ SCH (08:22)
[2022-07-08] MEDS: ATORVASTATIN 40 MG TABLET PO SCH (08:23)
[2022-07-08] MEDS: PANTOPRAZOLE 40 MG TABLET PO SCH ×2 (08:23→16:59)
[2022-07-08] MEDS: FUROSEMIDE 20 MG TABLET PO SCH (08:23)
[2022-07-08] MEDS: ISOSORBIDE MONONITRATE 30 MG TAB.XL.24H PO SCH (08:23)
[2022-07-08] MEDS: CARVEDILOL 12.5 MG TABLET PO SCH ×2 (08:23→16:59)
[2022-07-08] MEDS: SODIUM CHLORIDE 1 GM TABLET PO SCH ×3 (08:23→20:05)
[2022-07-08] MEDS: FLUoxetine HCL 20 MG CAPSULE PO SCH (08:24)
[2022-07-08] MEDS: CLOPIDOGREL 75 MG TABLET PO SCH (08:24)
[2022-07-08] MEDS: INSULIN GLARGINE, HUMAN 1 UNIT/0.01 ML SQ SCH (20:04)
[2022-07-09] MEDS: 0.9 % SODIUM CHLORIDE 10 ML SYRINGE IV SCH ×2 (06:01→13:38)
[2022-07-09 06:26] LABS: ALT/SGPT 32 U/L (<40); AST/SGOT 50 U/L (<32); Albumin 2.8 gm/dL (3.2-5.2); Alkaline Phosphatase 57 U/L (39-117); Bilirubin,Direct 0.7 mg/dL (<0.3); Bilirubin,Total 1.1 mg/dL (0.1-1.0); Blood Urea Nitrogen 26 mg/dL (8-23); Calcium 8.8 mg/dL (8.6-10.4); Carbon Dioxide 25 mmol/L (22-30); Chloride 98 mmol/L (96-108); Globulin 2.7 gm/dL (2.2-3.7); Glomerular Filtration Rate 72; Glucose 148 mg/dL (70-105); Lactate Dehydrogenase 202 U/L (135-225); Phosphorous 1.9 mg/dL (2.5-4.5); Triglycerides 78 mg/dL (<150); Uric Acid 6.3 mg/dL (2.5-8.0)
[2022-07-09] MEDS: PANTOPRAZOLE 40 MG TABLET PO SCH (06:56)
[2022-07-09] MEDS: CARVEDILOL 12.5 MG TABLET PO SCH (06:56)
[2022-07-09] MEDS: INSULIN LISPRO 1 UNIT/0.01 ML UNIT SQ SCH ×2 (07:09→10:56)
[2022-07-09] MEDS: FUROSEMIDE 20 MG TABLET PO SCH (09:06)
[2022-07-09] MEDS: ENOXAPARIN 40 MG/0.4 ML SYRINGE SQ SCH (09:06)
[2022-07-09] MEDS: ATORVASTATIN 40 MG TABLET PO SCH (09:06)
[2022-07-09] MEDS: ISOSORBIDE MONONITRATE 30 MG TAB.XL.24H PO SCH (09:07)
[2022-07-09] MEDS: FLUoxetine HCL 20 MG CAPSULE PO SCH (09:07)
[2022-07-09] MEDS: CLOPIDOGREL 75 MG TABLET PO SCH (09:07)
[2022-07-09] MEDS: oxyCODONE HCL 5 MG TABLET PO PRN ×2 (09:13→13:58)
[2022-07-09] MEDS ORDERED: SODIUM PHOSPHATE 15 MMOL/5 ML VIAL IV ONE (10:54)
--- NOTE | 2022-07-09 10:56 | Internal Med Progress Note ---
SUBJECTIVE Subjective Patient information: Note initiated : 07/09/22 at 10:54 am Service Date, if different from initiated Date: [] Patient: Harika Palomino 76 y/o F admitted on 07/06/22 for Fall. Chief Complaint: [Fall] Principal diagnosis: Left hip greater trochanteric fracture and wrist fracture Interval history: The patient was resting comfortably in bed. She had no active complaints or concerns. We are discussing disposition. Constitutional Vitals: Vital Signs Temp Pulse Resp BP Pulse Ox O2 Del Method O2 Flow Rate 97.1 F 67 16 149/61 91 1 07/09/22 06:58 07/09/22 06:58 07/09/22 06:58 07/09/22 06:58 07/09/22 06:58 07/09/22 07:20 07/08/22 04:04 Period Temp Pulse Resp BP Sys/Jean-Baptiste Pulse Ox O2 Del Method O2 Flow Rate Last 24 Hr 97.1 F-99.1 F 67-81 16-18 115-150/50-66 91-95 Room Air-Room Air Intake and Output 07/08/22 07/09/22 07/09/22 21:59 05:59 13:59 Intake Total 360 400 Output Total 1100 Balance 360 -700 Weight 50.802 kg Intake & Output: Intake & Output 07/08/22 07/09/22 07/09/22 21:59 05:59 13:59 Intake Total 360 400 Output Total 1100 Balance 360 -700 Weight 50.802 kg Intake: Oral 360 400 Output: Urine Catheter Amount 1100 Other: Urine Appearance Clear Clear Clear Uretheral (Tello) Clear Clear Urine Color Light Jocy Light Jocy Pale Uretheral (Tello) Light Jocy Pale Urine Odor Normal Normal Normal Uretheral (Tello) Normal Stool Size Small Stool Color Brown Stool Consistency Betzy Head Head exam: Present atraumatic and normal inspection Eye Eye exam: Present normal appearance ENT ENT exam: Present mucous membranes moist, normal exam and normal external ear exam Neck Neck exam: Present normal inspection Respiratory Respiratory exam: Present normal respiratory exam Cardiovascular Cardiovascular exam: Present normal rate and rhythm GI/Abdominal GI/Abdominal exam: Present normal bowel sounds Back Exam Back exam: Present normal inspection Neurological Exam Neurological exam: Present alert and oriented X3 Skin Skin exam: Present intact and warm OBJ DATA Labs CBC & Chem 7: 07/07/22 05:48 07/09/22 05:24 Labs: Abnormal Lab Results 07/09/22 07/08/22 07/07/22 05:24 05:35 05:48 RBC Hgb Hct RDW MPV Neut % (Auto) Lymph % (Auto) Lymph # (Auto) Absolute Neutrophils PT INR Sodium 131 L 130 L Chloride 94 L BUN 26 H 29 H 30 H Glucose 148 H 110 H Calcium 8.5 L Phosphorus 1.9 L Magnesium 1.1 L Total Bilirubin 1.1 H 1.4 H 1.1 H Direct Bilirubin 0.7 H 0.9 H 0.6 H AST 50 H 57 H 65 H ALT Total Protein 5.5 L 5.5 L 5.8 L Albumin 2.8 L 2.8 L 2.9 L 07/07/22 07/06/22 07/06/22 05:48 19:40 19:40 RBC 3.34 L Hgb 10.7 L Hct 30.1 L RDW 16.3 H MPV 11.5 H Neut % (Auto) 80.8 H Lymph % (Auto) 9.4 L Lymph # (Auto) 0.87 L Absolute Neutrophils PT 15.4 H INR 1.2 H Sodium 131 L Chloride BUN 30 H Glucose 134 H Calcium Phosphorus Magnesium Total Bilirubin Direct Bilirubin AST 67 H ALT 41 H Total Protein Albumin 07/06/22 19:40 RBC 3.53 L Hgb 11.0 L Hct 30.6 L RDW 15.9 H MPV 11.9 H Neut % (Auto) 84.1 H Lymph % (Auto) 8.4 L Lymph # (Auto) 0.91 L Absolute Neutrophils 9.10 H PT INR Sodium Chloride BUN Glucose Calcium Phosphorus Magnesium Total Bilirubin Direct Bilirubin AST ALT Total Protein Albumin Meds: Medications Acetaminophen (Acetaminophen 325 Mg Tablet) 650 mg PO Q6HP PRN; Protocol PRN Reason: Per Pain Protocol/Fever > 101 Hydrocodone Bitart/Acetaminophen (Hydrocodone/Apap 5/325mg Tablet) 1 tab PO Q4HP PRN PRN Reason: PAIN LEVEL 3-6 Albuterol/Ipratropium (Ipratropium/Albuterol 3 Ml Ampul.Neb) 3 ml NEB Q4HP PRN PRN Reason: Shortness Of Breath Alprazolam (Alprazolam 0.25 Mg Tablet) 0.25 mg PO QHS PRN PRN Reason: Restless Leg(S) Atorvastatin Calcium (Atorvastatin 40 Mg Tablet) 80 mg PO QDAY [facility] Last Admin: 07/09/22 09:06 Dose: 80 mg Carvedilol (Carvedilol 12.5 Mg Tablet) 12.5 mg PO BIDCC [facility] Last Admin: 07/09/22 06:56 Dose: 12.5 mg Clopidogrel Bisulfate (Clopidogrel 75 Mg Tablet) 75 mg PO QDAY [facility] Last Admin: 07/09/22 09:07 Dose: 75 mg Dextrose (Dextrose 50% 50 Ml Vial) 0 ml IV UD PRN PRN Reason: Per Sliding Scale Diagnostic Test (Pha) (Accu-Chek 1 Each Strip) 1 each FS ACHS [facility] Last Admin: 07/09/22 07:04 Dose: 1 each Enoxaparin Sodium (Enoxaparin 40 Mg/0.4 Ml Syringe) 40 mg SQ DAILY [facility] Last Admin: 07/09/22 09:06 Dose: 40 mg Fluoxetine HCl (Fluoxetine Hcl 20 Mg Capsule) 20 mg PO DAILY [facility] Last Admin: 07/09/22 09:07 Dose: 20 mg Furosemide (Furosemide 20 Mg Tablet) 40 mg PO QAM [facility] Last Admin: 07/09/22 09:06 Dose: 40 mg Glucose (Dextrose 31 Gm Oral.Susp) 15 gm PO PRN PRN PRN Reason: Hypoglycemia Potassium Chloride 40 meq/ (Dextrose) 520 mls @ 130 mls/hr IV UD PRN PRN Reason: Potassium < 3 Magnesium Sulfate (Magnesium Sulfate) 2 gm in 50 mls @ 50 mls/hr IV UD PRN PRN Reason: Magnesium </= 1.6 Insulin Glargine (Insulin Glargine, Human 1 Unit/0.01 Ml) 6 unit SQ QPM [facility] Last Admin: 07/08/22 20:04 Dose: 6 unit Insulin Human Lispro (Insulin Lispro 1 Unit/0.01 Ml Unit) 0 unit SQ ACHS [facility]; Protocol Last Admin: 07/09/22 07:09 Dose: 2 units Isosorbide Mononitrate (Isosorbide Mononitrate 30 Mg Tab.Xl.24h) 30 mg PO DAILY [facility] Last Admin: 07/09/22 09:07 Dose: 30 mg Labetalol HCl (Labetalol 5 Mg/Ml Ml) 0 mg IV Q2HP PRN PRN Reason: Hypertension Morphine Sulfate (Morphine 4 Mg/Ml Vial) 0 mg IV Q3HP PRN PRN Reason: Pain Last Admin: 07/08/22 00:17 Dose: 1 mg Ondansetron HCl (Ondansetron 4 Mg/2 Ml Vial) 4 mg IV Q4HP PRN PRN Reason: Nausea And Vomiting Oxycodone HCl (Oxycodone Hcl 5 Mg Tablet) 5 mg PO Q4-6HP PRN; Protocol PRN Reason: Per Pain Protocol Last Admin: 07/09/22 09:13 Dose: 5 mg Pantoprazole Sodium (Pantoprazole 40 Mg Tablet) 40 mg PO BIDAC [facility] Last Admin: 07/09/22 06:56 Dose: 40 mg Polyethylene Glycol (Polyethylene Glycol 3350 17 Gm Packet) 17 gm PO DAILYP PRN PRN Reason: Constipation Potassium Chloride (Potassium Chloride 20 Meq Tablet) 40 meq PO UD PRN PRN Reason: Potssium is 3-3.5 Last Admin: 07/08/22 20:03 Dose: 40 meq Potassium Chloride (Potassium Chloride 20 Meq Tablet) 40 meq PO UD PRN PRN Reason: Potassium < 3 Senna (Sennosides 1 Tablet) 2 tab PO DAILYP PRN PRN Reason: Constipation Sodium Chloride (0.9 % Sodium Chloride 10 Ml Syringe) 10 ml IV Q8 [facility] Last Admin: 07/09/22 06:01 Dose: 10 ml A/P Narrative A/P Narrative: A: *Left hip greater troch fx & wrist fx: -treating conservatively by ortho *h/o CVA w/residual mild Left Hemiparesis: *CAD w/stent: *peripheral edema: on lasix *DM: *HTN/HLD: on nifedipine/coreg/losartan, also on imdur for cardiac *Depression/anxiety: *GERD: *CKD II: *Anemia, chronic: *Hyponatremia: improved *Hypomagnesemia: *Tobacco abuse: P: -07/09: The patient is awaiting discharge to shelter facility. She remains medically status quo -Dr. Louis for Ortho, f/u outpt -pain control -Electrolyte replacement -decrease BP meds for low BP, cont Imdur, lasix, plavix -Basal and SSI -Smoking cessation counseling -PT/OT -CM for placement -ppx: lovenox /home PPI DNR Time Spent With Patient Time: Total time spent is greater than 50% in coordination of care (as documented) at patient's floor/unit and/or counseling patient: Total time spent with greater than 50% in coordination of care (as documented) at patient's floor/unit and/or counseling patient:: 25 - 35 minutes QUALITY VTE Deep Vein Thrombosis/Pulmonary Embolism Present on Admission: No
[2022-07-09] MEDS ORDERED: SODIUM PHOSPHATE 45 MMOL in DEXTROSE 5% IN WATER 500 ML IV ONE (11:15)
--- NOTE | 2022-07-09 13:32 | Discharge Summary ---
Discharge Provider Provider IMPORTANT FOLLOW-UP INFORMATION FOR PCP: Patient information: Note initiated : 07/09/22 at 1:32 pm Service Date, if different from initiated Date: [] Patient: Harika Palomino 76 y/o F admitted on 07/06/22 for Fall. Chief Complaint: [] Date of admission: 07/06/22 22:04 Discharge date: 07/09/22 Primary care physician: Obie Self PA-C Consults: 07/06/22 Consult to Physician [CONS] Stat Comment: Consulting Provider: Garett Gonzalez Reason For Exam: Physician to Consult Consult to Physician [CONS] Stat Comment: hip fracture Consulting Provider: Juan Manuel Louis Reason For Exam: Physician to Consult COURSE Hospital Course Hospital course: A: *Left hip greater troch fx & wrist fx: -treating conservatively by ortho *h/o CVA w/residual mild Left Hemiparesis: *CAD w/stent: *peripheral edema: on lasix *DM: *HTN/HLD: on nifedipine/coreg/losartan, also on imdur for cardiac *Depression/anxiety: *GERD: *CKD II: *Anemia, chronic: *Hyponatremia: improved *Hypomagnesemia: *Tobacco abuse: P: -Dr. Louis for Ortho, f/u outpt -pain control -Electrolyte replacement -decrease BP meds for low BP, cont Imdur, lasix, plavix -Basal and SSI -Smoking cessation counseling -PT/OT -CM for placement -ppx: lovenox /home PPI Discharge diagnosis: Left hip greater troch fx & wrist fx Time Spent with Patient Time attestation: Total time spent providing and/or coordinating discharge services: Time spent: Greater than 30 minutes EXAM Constitutional Vitals: Temp Pulse Resp BP Pulse Ox O2 Del Method O2 Flow Rate 97.2 F 65 20 124/59 92 1 07/09/22 12:00 07/09/22 12:00 07/09/22 12:00 07/09/22 12:00 07/09/22 12:00 07/09/22 12:00 07/08/22 04:04 General appearance: average body habitus Head Head exam: Present atraumatic, normal inspection and normocephalic Eye Eye exam: Present EOMI, normal appearance and PERRL; Absent conjunctival injection ENT ENT exam: Present normal exam; Absent mucous membranes dry Neck Neck exam: Present full ROM; Absent lymphadenopathy Respiratory Respiratory exam: Present normal respiratory exam and CTAB; Absent decreased breath sounds, respiratory distress or wheezes Cardiovascular Cardiovascular exam: Present normal rate and rhythm and RRR; Absent JVD GI/Abdominal GI/Abdominal exam: Present normal bowel sounds and soft; Absent diminished bowel sounds, distended, guarding, mass, rebound or tenderness Neurological Exam Neurological exam: Present alert, CN II-XII intact and oriented X3 Psychiatric Psychiatric exam: Present normal affect and normal mood Skin Skin exam: Present intact and warm; Absent erythema, pallor, petechiae or rash Discharge Data Data Completed and Pending Labs on day of discharge: Labs from last 24 hours 07/09/22 05:24 Sodium 131 L Potassium 4.2 Chloride 98 Carbon Dioxide 25 Anion Gap 8.0 BUN 26 H Creatinine 0.8 GFR Calculation 72 Glucose 148 H Uric Acid 6.3 Calcium 8.8 Phosphorus 1.9 L Magnesium 1.6 Total Bilirubin 1.1 H Direct Bilirubin 0.7 H GGT 24 AST 50 H ALT 32 Alkaline Phosphatase 57 Lactate Dehydrogenase 202 Total Protein 5.5 L Albumin 2.8 L Globulin 2.7 Albumin/Globulin Ratio 1.0 Triglycerides 78 Discharge Plan Patient/Caregiver Discharge Instructions Activity: as per physical therapy Instructions: Hip Fracture (GEN) Prescriptions: New oxycodone 5 mg capsule 5 mg PO Q4H PRN (Reason: pain) Qty: 60 0RF No Action nifedipine 60 mg tablet extended release 60 mg PO BID 90 Days Qty: 180 1RF carvedilol 25 mg tablet 25 mg PO BID 90 Days Qty: 180 1RF Rx Instructions: must administer with a meal/food clopidogrel 75 mg tablet 75 mg PO QDAY 90 Days Qty: 90 1RF Lantus U-100 Insulin 100 unit/mL solution 6 unit subcut QPM pantoprazole 20 mg tablet,delayed release (DR/EC) 20 mg PO BID 90 Days Qty: 180 1RF fluoxetine 20 mg tablet 20 mg PO QDAY 90 Days Qty: 90 1RF atorvastatin 80 mg tablet 80 mg PO QDAY 90 Days Qty: 90 1RF alprazolam 0.25 mg tablet 0.25 mg PO QHS PRN (Reason: Restless Leg(S)) Qty: 30 0RF fenofibrate 160 mg tablet 160 mg PO QDAY 90 Days Qty: 90 1RF losartan 50 mg tablet 50 mg PO HS acetaminophen 500 mg capsule 500 mg PO Q6H PRN (Reason: Pain) multivitamin Tablet 1 tab PO QDAY Qty: 30 3RF cholecalciferol (vitamin D3) 100 mcg (4,000 unit) Capsule 100 mcg PO QDAY isosorbide mononitrate 30 mg tablet extended release 24 hr 30 mg PO DAILY furosemide 20 mg tablet 40 mg PO QAM Follow Up Plan Follow up with: Obie Self PA-C [Primary Care Provider] - Patient Disposition: Xfer SNF Prognosis: Fair Rehab Potential: Good I certify that the patient requires SNF services: Yes Overall status at discharge: patient is progressing back to baseline Discharge Orders: Discharge Order (Routine); Ordered 07/09/22 Ordered By: Mahin GONZALES VTE Deep Vein Thrombosis/Pulmonary Embolism Present on Admission: No
== END 2022-07-09 17:07 | DRG 536 ==
LOC: ED 16:32 → MEDSUR 22:04
PROVIDERS: ADMIT Internal Medicine; ATTEND Internal Medicine